=== PATIENT | male | born 1950 | race Caucasian/White ===

== ENCOUNTER 2019-05-26 11:09 | Inpatient (IN) | payer OTHER, MEDICAID ==
[~2019-05-26] VITALS: Ht 177.8 cm; Wt 73.0 kg
[2019-05-26] VITALS (7 sets, daily range): BP systolic 120–140
--- NOTE | 2019-05-26 11:33 | NUR ---
Patient to H1 to gown for evaluation. Side rails up. Report given to Qian.
--- NOTE | 2019-05-26 11:48 | NUR ---
Per Leonel, pt will be admitted under Dr. Glover and has bed at [facility]. Pt is from home.
--- NOTE | 2019-05-26 11:52 | NUR ---
Dr Cronin at bedside examining patient
[2019-05-26 12:21] LABS: MEAN CORPUSCULAR HEMOGLOBIN 19 pg (27-31); MEAN CORPUSCULAR HGB CONC 28 % (32-36); MEAN CORPUSCULAR VOLUME 69 fL (79.0-98.0); PLATELET COUNT (AUTO) 535 K/uL (130-430); RED BLOOD CELL COUNT(AUTO) 3.56 MIL/uL (4.2-6.2); RED CELL DISTRIBUTION WIDTH 17.7 % (9.0-15.0); WHITE BLOOD COUNT (AUTO) 12.1 K/uL (4.8-10.8)
[2019-05-26 12:28] LABS: CALCIUM 8.6 mg/dL (8.4-11.0); CREATININE 0.81 mg/dL (0.55-1.30); POTASSIUM 4.3 mmol/L (3.5-5.1)
[2019-05-26 12:34] LABS: ALBUMIN 2.3 g/dL (3.4-4.8); TOTAL BILIRUBIN 0.2 mg/dL (0.0-1.0)
[2019-05-26 12:35] LABS: HEMATOCRIT 24.4 % (36-54); HEMOGLOBIN 6.8 g/dL (14.0-18.0)
[2019-05-26 13:02] LABS: BAND % (MANUAL) 3 % (0-6); LYMPHOCYTES % (MANUAL) 5 % (20-46)
[2019-05-26 13:03] LABS: BASOPHILS % (MANUAL) 0 % (0-2); EOSINOPHILS % (MANUAL) 1 % (0-7); MONOCYTES % (MANUAL) 1 % (0-11)
--- NOTE | 2019-05-26 13:21 | NUR ---
Pt brought by caregiver, A&Ox1, pt presents to ER with multiple falls in the last couple days and R leg pain, pt has contractures, purposeful,pt skin pink and warm, no N/V, respirations even and unlabored.
[2019-05-26 14:09] LABS: BILIRUBIN,URINE NEGATIVE (NEGATIVE); BLOOD, URINE NEGATIVE (NEGATIVE); CLARITY/URINE CLOUDY (CLEAR); COLOR,URINE YELLOW (YELLOW); GLUCOSE,URINE NEGATIVE (NEGATIVE); KETONES,URINE NEGATIVE (NEGATIVE); LEUKOCYTE ESTERASE ,URINE 1+ (NEGATIVE); NITRITE, URINE NEGATIVE (NEGATIVE); PROTEIN URINE NEGATIVE (NEGATIVE); UROBILINOGEN,URINE 0.2 (0.2-1.0)
[2019-05-26 14:30] LABS: BACTERIA,URINE MANY /HPF (None Seen); CALCIUM OXALATE CRYSTALS,UR 0-10 /HPF (None Seen); RBC,URINE 0-3 /HPF (0-3)
[2019-05-26] MEDS ORDERED: LORA1TAB PO (14:30)
[2019-05-26] MEDS ORDERED: ESCI20TA PO (14:30)
[2019-05-26] MEDS ORDERED: BENZ1TAB76 PO (14:30)
[2019-05-26] MEDS ORDERED: FAMO40TA7 PO (14:30)
[2019-05-26] MEDS ORDERED: QUET400T5 PO (14:30)
[2019-05-26] MEDS ORDERED: FERR-69 PO (14:30)
[2019-05-26] MEDS ORDERED: HAL5 PO (14:30)
--- NOTE | 2019-05-26 14:30 | NUR ---
Patient will be admitted to care of DR. DUEÑAS. Admitted to TELE 130A unit. Will go to room 130A. Belongings list completed. Summary report printed. Report will be given at bedside. Transfer to TELE 130A via ACLS protocol. Licensed nurse present. IV present no signs or symptoms of infiltration.
--- NOTE | 2019-05-26 14:31 | NUR ---
Medication reconciliation completed with information provided by Dr Glover. Any prior medication reconciliation on file was reviewed and corrected.
--- NOTE | 2019-05-26 14:38 | NUR ---
ADMISSION NOTE Received patient from ER via samuel, received report from BRIDGETTE PÉREZ. Patient admitted with diagnosis of DVT. Patient oriented to hospital routine, call light, toileting and safety-patient verbalized understanding.
--- NOTE | 2019-05-26 15:24 | NUR ---
CONTINUATION OF CARE PATIENT IS AWAKE AND ALERT, REPORT ENDORSED BY ADMISSION NURSE. PATIENT HAS NO COMPLAINTS AT THIS TIME. PATIENT EDUCATED LEAD CARE MANAGER LIGHT FOR ASSISTANCE. PATIENT SHOWS NO SIGNS OF ANY DISTRESS, BREATHING IS EQUAL AND NON LABORED. WILL CONTINUE TO MONITOR.
--- NOTE | 2019-05-26 15:55 | NUR ---
City Library Director Note Patient referred to City Library Director by Yasmeen RN for a possible APS report due to patient having two unstageable decubitus wounds. They were reported to TOW BOAT CAPTAIN as one on left and one on right buttock measuring 8 and 6 cm. Patient's brother has been attempting to care for patient in his home, but was unaware of the wounds. Patient has a history of schizophrenia, GI bleed, and paranoia. Currently admitted with DVT. TOW BOAT CAPTAIN phoned patient's brother, Santy, . Santy stated patient was last hospitalized one year ago. Santy has been caring for patient, but patient has been getting weaker and falling over the last two months. He has an air mattress in the home but has been spending about 12 hours a day in the wheelchair. Santy stated he has been changing patient's diaper, but had not noticed the sores due to the position the patient is in when the diaper is changed. Cindy with [facility] [phone] has been coming to the home and stated she was arranging for patient to go to [facility] for rehab. However, when they arrived at the SNF, the SNF was unaware that the patient was coming. Thus, they came to [facility]. Santy just signed up for [employer] yesterday so he could get more help at home. He plans for patient to go to a SNF upon discharge, but hopes patient can improve and return home after a stay in the SNF. TOW BOAT CAPTAIN explained that a report would be filed due to the wounds but the story as indicated above would be conveyed. TOW BOAT CAPTAIN phoned in an APS report, , with [facility], case # [id number]. A written report will be sent tomorrow morning to [address] [place] [address] [address], [place] [address]. Will conduct a Discharge Plan Assessment. Expect patient will discharge to SNF. Notified Vania HACKETT and Mariam EATON Card Tape Converter Operator. Team will remain available.
[2019-05-26] MEDS ORDERED: FLU VACC TS2019(65UP)/MF59C/PF 45 MCG/0.5 ML SYRINGE I.M. PRN (16:00)
--- NOTE | 2019-05-26 16:35 | NUR ---
BT INITIATION: Consent signed per patients asif Macias agreeing to administration of blood. Blood has been type and crossmatched. Blood sent from blood bank. Information on unit of blood checked against patient wristband at bedside by two nurses. All information matches. Patient or responsible republican informed of potential complications associated with blood transfusion. Informed of possible transfusion reaction symptoms. Aware of need to notify nurse at once of itching, shortness of breath, flushing, feeling of impending doom, or other symptoms not previously present. Vital signs taken within 5 minutes prior to initiation of transfusion. RN will remain with patient for first 15 minutes of transfusion at which time vital signs will be re-assessed. Addendum: 05/26/19 at 1925 by Lida Hawley RN NEW IV SITE OBTAINED LEFT AC 20G, FLUSHING WELL, GOOD BLOOD RETURN.
--- NOTE | 2019-05-26 16:50 | NUR ---
15 MINUTES POST START OF TRANSFUSION PATIENT HAS NO SOB, DENIES PAIN, OR ITCHING. VITAL SIGNS ARE STABLE BP 116/61 HEART RATE 110, TEMPERATURE 98.2, RESPIRATION OF 16. PATIENT EDUCATED HSE ADVISOR LIGHT FOR ASSISTANCE, CALL LIGHT IS WITH PATIENT.PATIENT HAS NO COMPLAINTS AT THIS TIME. WILL CONTINUE TO MONITOR.
--- NOTE | 2019-05-26 17:30 | NUR ---
CONSULTATION PAGED/CALLED Reason for Consultation: CORNELIO Person Who was Notified: DANIEL Consulting Physician: Fare Collector Specialty: Ordering Physician: Addendum: 05/26/19 at 1816 by Jazmyn [place] [facility] [place]ED Reason for Consultation: DICK Person Who was Notified: NEDA Consulting Physician: Fare Collector Specialty: Ordering Physician:
--- NOTE | 2019-05-26 18:49 | NUR ---
rn closing note Patient is awake and alert sitting up in bed no signs of any distress, breathing is equal and non labored. Patient shows no adverse reactions to blood. Patient educated information technology security manager light , call light is with patient. Patient has all safety precautions in place. no other needs at this time.
--- NOTE | 2019-05-26 19:39 | NUR ---
Initial note: Report received from dayshift RN. Patient is awake in bed, watching TV. No acute distress. Alert and oriented to name and place only. 1st of 2 units of PRBC's currently being transfused to left AC IV site. Patient shows no adverse effects, IV site is patent and benign. Call light with patient. Safety, fall precautions in place. Will continue with plan of care.
--- NOTE | 2019-05-26 19:42 | NUR ---
1st unit PRBC complete: 1st of 2 PRBC units completed at this time. Temp 98.8 F, HR 110, RR 18, BP 120/64, SaO2 95%. No adverse reactions noted. Will initiate 2nd unit PRBC per MD order.
--- NOTE | 2019-05-26 20:08 | NUR ---
BT INITIATION (2nd unit PRBC's): Consent signed per patient's brother Santy Macias agreeing to administration of blood. Blood has been type and crossmatched. Blood sent from blood bank. Information on unit of blood checked against patient wristband at bedside by two nurses. All information matches. Patient or responsible libertarian informed of potential complications associated with blood transfusion. Informed of possible transfusion reaction symptoms. Aware of need to notify nurse at once of itching, shortness of breath, flushing, feeling of impending doom, or other symptoms not previously present. Vital signs taken within 5 minutes prior to initiation of transfusion. RN will remain with patient for first 15 minutes of transfusion at which time vital signs will be re-assessed.
--- NOTE | 2019-05-26 22:03 | NUR ---
Dr. Glover rounds: MD at bedside to assess patient. MD ordered to continue patient's home medications. Does not want to start patient on Lovenox due to low hemoglobin, wants GI to see patient first. Orders verified by read-back, RN to input.
--- NOTE | 2019-05-26 23:29 | NUR ---
2nd unit PRBC complete: 2nd unit of PRBC's completed transfusing at this time. Temp 98.7 F, HR 111, RR 18, BP 134/74. No adverse reactions noted. IV site to left AC saline locked. Call light with patient. Will continue monitoring.
[2019-05-27 00:58] VITALS: BP_SYST 133
--- NOTE | 2019-05-27 01:56 | NUR ---
Rounds: Patient is resting in bed, no acute distress noted. Even, unlabored breathing on room air. IV site is patent and benign. Call light is with patient. Will continue to monitor.
[2019-05-27 08:00] VITALS: BP_SYST 142
--- NOTE | 2019-05-27 08:10 | NUR ---
AM NOTES Receive patient from [facility] shift nurse. Patient alert to name. Patient has swelling in the right lower leg. Incontinent on bowel and bladder. Dressing noted in the left and right buttocks. Denies any pain and discomfort. No SOB, no signs of respiratory distress. Safety precaution in place. Call light with in reach.
--- NOTE | 2019-05-27 08:45 | NUR ---
MD ROUNDS Dr. Ramirez come and see the patient. MD stated he needs to find out if the patient had scope in the past. Patient not able to recall, if not MD will do scope by Thursday. Will call family to find out. Will continue to monitor
[2019-05-27 08:50] LABS: BASOPHILS # (AUTO) 0.1 K/uL (0.0-0.2); EOSINOPHILS # (AUTO) 0.1 K/uL (0.0-0.4); EOSINOPHILS % (AUTO) 0.7 % (0.0-4.0); HEMATOCRIT 27.3 % (36-54); HEMOGLOBIN 8.5 g/dL (14.0-18.0); LYMPHOCYTES # (AUTO) 1.8 K/uL (1.0-5.5); MEAN CORPUSCULAR HEMOGLOBIN 22 pg (27-31); MEAN CORPUSCULAR HGB CONC 31 % (32-36); MEAN CORPUSCULAR VOLUME 71 fL (79.0-98.0); MONOCYTES # (AUTO) 0.7 K/uL (0.0-1.0); MONOCYTES % (AUTO) 6.7 % (1.7-9.3); PLATELET COUNT (AUTO) 522 K/uL (130-430); RED BLOOD CELL COUNT(AUTO) 3.84 MIL/uL (4.2-6.2); WHITE BLOOD COUNT (AUTO) 10.7 K/uL (4.8-10.8)
[2019-05-27 09:00] LABS: NEUTROPHILS % (AUTO) 74.6 % (40.0-70.0)
[2019-05-27 09:04] LABS: CALCIUM 8.2 mg/dL (8.4-11.0); CREATININE 0.9 mg/dL (0.55-1.30); POTASSIUM 3.9 mmol/L (3.5-5.1)
[2019-05-27 09:11] LABS: INR 1.1 (0.80-1.20); PROTHROMBIN TIME 10.8 SECS (9.5-12.5)
[2019-05-27 09:18] LABS: THYROID STIMULATING HORMONE 7.93 uIu/mL (0.36-3.74)
[2019-05-27] MEDS: BENZTROPINE MESYLATE 1 MG TABLET PO SCH ×2 (09:54→21:53)
[2019-05-27] MEDS: FERROUS SULFATE 325 MG TABLET.DR PO SCH (09:54)
[2019-05-27] MEDS: FAMOTIDINE 20 MG TABLET PO SCH (09:54)
[2019-05-27] MEDS: HALOPERIDOL 5 MG TABLET (HALDOL) PO SCH ×2 (09:54→21:52)
[2019-05-27] MEDS: CITALOPRAM HYDROBROMIDE 20 MG TABLET PO SCH (09:54)
--- NOTE | 2019-05-27 10:33 | NUR ---
Nutrition Update Andres Scale 13 noted. Pt admitted for DVT. Diet: regular BMI: 23 kg/m2 RD to follow per nutrition care standards.
--- NOTE | 2019-05-27 11:35 | NUR ---
Manager Product Design at bed side talking with the family.
--- NOTE | 2019-05-27 11:39 | NUR ---
WOUND EVALUATION: Wound Consult received from Dr. Glover. Thank you, Dr. Glover, for the consult. Patient received in a John Bed with an IsoFlex SAM mattress with low air-loss therapy initiated, awake, alert, and oriented x 2-3. Patient is unable to turn in bed independently. Andres Score is a 13. Past Medical History: Schizophrenia. Patient admitted for a fall at home, with gradual onset of increased gait imbalance and tendency to fall over the past few weeks. Recent Labs: WBC 10.7, RBC 3.84, hemoglobin 8.5, hematocrit 27.3, platelets 522, albumin 2.3, PTT 25.6. Microbiology: Blood culture results 2 in progress. Urine culture results in progress. Patient received 2 units of RBCs on 05/26/19 (Hgb 6.8 on admission). Venous Doppler results: "Right lower extremity deep venous thrombosis extending from the right superficial femoral to the right popliteal veins." Intrinsic factors that delay wound healing: Anemia, Hypoalbuminemia. Extrinsic factors that delay wound healing: Decreased mobility. Per report by patient's brother, 'patient tends to sit in a chair for long periods, and he had to throw away a good recliner because it was soiled.' Wound Assessment: 1. Left Buttock near Ischium: Unstageable pressure ulcer, present on admission. Site has 60% yellow slough, 35% black slough, 5% pink tissue. Mild odor, scant yellow purulent drainage. Periwound has erythema and scar tissue. Slough area is soft to touch, with wound cavity beneath (deep open area present around 8 o'clock). Wound measures 8.5 cm x 6.5 cm x 4.0 cm. Recommend: Cleanse wound with normal saline. Apply SurePrep to joyce-wound. Apply Venelex ointment to wound bed. Pack wound with 1/4 inch iodoform packing strip. Cover with nonadhesive foam dressings. Secure with transparent dressings. Perform wound care daily, and as needed for dressing soiling or dislodgement. 2. Right Buttock near Ischium: Unstageable pressure ulcer, present on admission. Site has 60% black slough, 40% yellow slough. No odor, no drainage. Periwound has erythema. Slough area is soft to touch, with probable wound cavity beneath. Wound measures 4.5 cm x 6.5 cm. Recommend: Cleanse wound with normal saline. Apply SurePrep to joyce-wound. Apply Venelex ointment to wound bed. Cover with nonadhesive foam dressings. Secure with transparent dressings. Perform wound care daily, and as needed for dressing soiling or dislodgement. Also recommend: Encourage and assist patient with repositioning [id number] only every [address] one pillow underneath Pelvis and one pillow underneath lower extremity (hand should freely slide underneath buttock) bilaterally. Place an additional pillow underneath noble when turning patient. Off-load pressure areas with pillows for pressure re-distribution. Offload, elevate and float bilateral heels with one pillow lengthwise under each extremity at all times. Perform skin care and monitor skin integrity Q shift. Use moisture barrier cream on buttocks and other moisture susceptible areas QID and as needed for soiling. Maintain patient on a low air-loss mattress. Recommend surgical consult for pressure ulcers on bilateral buttocks.
[2019-05-27] MEDS ORDERED: BALSAM PERU/CASTOR OIL 60 GM OINT...G. TP ONE (12:00)
--- NOTE | 2019-05-27 12:20 | NUR ---
RN ROUNDS Patient is sitting in bed and eating lunch. No signs of respiratory distress. No SOB. Patients needs met and attended. Will continue to monitor.
[2019-05-27 13:14] VITALS: BP_SYST 145
--- NOTE | 2019-05-27 14:00 | NUR ---
RN ROUNDS Patient is sitting in bed, alert oriented to name only. Swelling in the right leg noted. No pain and discomfort at this time. No signs of respiratory distress. Will continue to monitor.
--- NOTE | 2019-05-27 15:14 | NUR ---
Notes- Spoke to Dr. Glover and made aware that GI cleared patient to receive anticoagulant for his DVT. MD ordered Xarelto per pharmacy to dose.
[2019-05-27] MEDS ORDERED: COMMUNICATION ORDER XX ONE (15:15)
--- NOTE | 2019-05-27 16:05 | NUR ---
Employment Coach Note/Discharge Planning MANAGER OF INTERNATIONAL met with patient's brother, Santy, this am at bedside. Santy understands that patient should not return home until Santy is fully able to care for him. Santy makes the decisions for patient. Patient was at [facility], , [address] [place] [id number], sometime in the past. [facility] was being arranged for patient by his home health. Santy has no preference of SNF other than near [place], where Santy resides.
[2019-05-27] MEDS: BALSAM PERU/CASTOR OIL 60 GM OINT...G. TP SCH (16:20)
[2019-05-27] MEDS ORDERED: RIVAROXABAN 15 MG TABLET PO ONE (16:30)
[2019-05-27 16:48] VITALS: BP_SYST 148
--- NOTE | 2019-05-27 17:09 | NUR ---
Dietitian Recommendations * Recommend regular diet, Ensure Enlive BID, Christian BID (ONS and modular provide 880 kcal/day, 45 gm protein/day) SALINAS WILLS Please refer to Nutrition Assessment for details. Addendum: 05/27/19 at [address] Amended: Links added.
--- NOTE | 2019-05-27 18:36 | NUR ---
CLOSING NOTES Patient is sitting in bed, alert but confused at times. Dr. Glover came and see the patient. Swelling in the right leg noted. Wound dressing is in the Right and Left buttocks are intact. No signs of respiratory distress. NO SOB. Safety precaution in place. Bed in low position and call light within reach. Patient needs met and attended. Will endorsed to deli manager nurse for continuity of care.
[2019-05-27] MEDS ORDERED: LEVOFLOXACIN 500 MG/D5W 100 ML IV SCH (19:30)
--- NOTE | 2019-05-27 19:35 | NUR ---
ROUNDS PATIENT IN BED, EATING HIS DINNER, VITALS STABLE, DENIES ANY PAIN AND DISCOMFORT AT THIS TIME. ASSESSMENT DONE AND DOCUMENTED. SEE FLOWSHEET. NEEDS ATTENDED TO. SAFETY AND FALL PRECAUTION MEASURES IN PLACED. CALL LIGHT PLACED WITHIN REACH.
[2019-05-27] MEDS ORDERED: ESCITALOPRAM OXALATE 10 MG TABLET PO SCH (21:00)
--- NOTE | 2019-05-27 21:15 | NUR ---
MEDICATION DUE MEDICATIONS GIVEN ORDERED, TOLERATED WELL. WILL CONTINUE TO MONITOR.
[2019-05-27] MEDS: LORazepam 1 MG TABLET PO SCH (21:53)
[2019-05-27] MEDS ORDERED: LEVOFLOXACIN 500 MG/D5W 100 ML IV ONE (21:53)
[2019-05-27] MEDS: QUEtiapine FUMARATE 200 MG TAB.SR.24H PO SCH (21:54)
--- NOTE | 2019-05-28 00:16 | NUR ---
PATIENT RESTING: Patient resting quietly. No acute distress noted. Vital signs within normal range.
[2019-05-28 00:45] VITALS: BP_SYST 128
--- NOTE | 2019-05-28 02:13 | NUR ---
ROUNDS PATIENT SLEEPING, RESPIRATIONS EVEN AND UNLABORED, WILL CONTINUE TO MONITOR.
--- NOTE | 2019-05-28 04:12 | NUR ---
PATIENT RESTING: Patient resting quietly. No acute distress noted. Vital signs within normal range.
--- NOTE | 2019-05-28 05:10 | NUR ---
CONSULT Paged Dr. Mccallum for morning consult [phone] Spoke to Vivi
--- NOTE | 2019-05-28 05:17 | NUR ---
CONSULT Paged Dr. Pantoja for morning consult [phone] Spoke to Vivi
--- NOTE | 2019-05-28 05:22 | NUR ---
CONSULT Called Dr. Tabares's paging service [phone] Spoke to Kym
--- NOTE | 2019-05-28 06:40 | NUR ---
CLOSING NOTES PATIENT AWAKE, VITALS STABLE, ALL NEEDS ATTENDED TO. IV PULLED OUT, REINSERTED ON THE RIGHT FOREARM G. 22. HAD BM, SENT STOOL SPECIMEN TO THE LAB. MADE CLEAN AND COMFORTABLE. WILL CONTINUE TO MONITOR.
[2019-05-28 07:40] VITALS: BP_SYST 132
--- NOTE | 2019-05-28 07:41 | NUR ---
am rounds: Awake, oriented x3. Denies pain at this time. Righ leg/ foot is warm, swollen with 3+ pitting edema on the dorsal foot. Elevated right leg with a pillow. Air mattress for existing wounds. Safety precautions in place. Call light within reach.
[2019-05-28] MEDS ORDERED: RIVAROXABAN 15 MG TABLET PO SCH (08:30)
[2019-05-28] MEDS: FAMOTIDINE 20 MG TABLET PO SCH (08:33)
[2019-05-28] MEDS: BENZTROPINE MESYLATE 1 MG TABLET PO SCH ×2 (08:34→20:30)
[2019-05-28] MEDS: HALOPERIDOL 5 MG TABLET (HALDOL) PO SCH ×2 (08:34→20:30)
[2019-05-28] MEDS: CITALOPRAM HYDROBROMIDE 20 MG TABLET PO SCH (08:34)
[2019-05-28] MEDS: FERROUS SULFATE 325 MG TABLET.DR PO SCH (08:34)
[2019-05-28] MEDS: BALSAM PERU/CASTOR OIL 60 GM OINT...G. TP SCH (10:49)
--- NOTE | 2019-05-28 11:00 | NUR ---
Incontinence and wound care: Cleansed patient for incontinent of urine. Wound care done. Please see assessment flowsheet.
[2019-05-28] MEDS ORDERED: *HEPARIN PER PHARMACY XX ONE (12:30)
[2019-05-28 12:45] VITALS: BP_SYST 126
[2019-05-28] MEDS ORDERED: HEPARIN SODIUM,PORCINE 5000 UNITS/ML VIAL IVP ONE (12:45)
[2019-05-28] MEDS: HEPARIN 25,000 UNITS/D5W 250ML 250 ML IV PRN ×2 (13:50→22:37)
--- NOTE | 2019-05-28 13:57 | NUR ---
Heparin Drip: PTT 33.3. Initiated heparin drip at 1300 units/hr. PTT level ordered for 1999.
--- NOTE | 2019-05-28 15:00 | NUR ---
Rounds: Patient is resting. heparin drip at 1,300 units on the left hand gauge 20 intact and patent.
[2019-05-28 16:54] VITALS: BP_SYST 127
--- NOTE | 2019-05-28 17:00 | NUR ---
Surgical Consult: Seen by Dr. Alvarado. No new orders.
--- NOTE | 2019-05-28 18:27 | NUR ---
End of shift: Needs attended. No signs of bleeding noted. Continues on heparin drip at 1300 units per hour.
--- NOTE | 2019-05-28 19:30 | NUR ---
ROUNDS PATIENT IN BED, WATCHING TV, VITALS STABLE, NO PAIN AT THIS TIME. SHIFT ASSESSMENT DONE AND DOCUMENTED. SEE FLOWSHEET. ON HEPARIN DRIP AT 13 ML/HR, INFUSING WELL. NEEDS ATTENDED TO. SAFETY AND FALL MEASURES IN PLACED. CALL LIGHT PLACED WITHIN REACH.
[2019-05-28] MEDS: LORazepam 1 MG TABLET PO SCH (20:30)
[2019-05-28] MEDS: QUEtiapine FUMARATE 200 MG TAB.SR.24H PO SCH (20:31)
[2019-05-28] MEDS: LEVOFLOXACIN 500 MG/D5W 100 ML IV SCH (22:08)
--- NOTE | 2019-05-28 22:37 | NUR ---
HEPARIN DRIP PTT 48.8, HEPARIN DRIP INCREASED BY 100 UNITS PER PROTOCOL AND IS NOW 1400 UNITS, WITNESSED AND CO-SIGNED Tahira LAWRENCE RN. NEXT PTT AT 0437. WILL CONTINUE TO MONITOR.
--- NOTE | 2019-05-29 00:15 | NUR ---
PATIENT RESTING: Patient resting quietly. No acute distress noted. Vital signs within normal range.
[2019-05-29 01:53] VITALS: BP_SYST 143
--- NOTE | 2019-05-29 02:14 | NUR ---
ROUNDS PATIENT ASLEEP, RESPIRATIONS EVEN AND UNLABORED, WILL CONTINUE TO MONITOR.
--- NOTE | 2019-05-29 04:15 | NUR ---
ROUNDS PATIENT ASLEEP, NO SOB NOR PAIN AND DISCOMFORT NOTED, WILL CONTINUE TO MONITOR.
--- NOTE | 2019-05-29 06:30 | NUR ---
CLOSING NOTES PATIENT REMAINED STABLE, ALL NEEDS ATTENDED TO, SAFETY MEASURES MAINTAINED. BED IN LOW AND LOCKED POSITION. CALL LIGHT PLACED WITHIN REACH.
[2019-05-29 06:39] LABS: BASOPHILS # (AUTO) 0.1 K/uL (0.0-0.2); BASOPHILS % (AUTO) 0.8 % (0.0-2.0); EOSINOPHILS # (AUTO) 0.1 K/uL (0.0-0.4); EOSINOPHILS % (AUTO) 1.3 % (0.0-4.0); HEMATOCRIT 25.3 % (36-54); HEMOGLOBIN 7.7 g/dL (14.0-18.0); LYMPHOCYTES # (AUTO) 1.4 K/uL (1.0-5.5); LYMPHOCYTES % (AUTO) 14.4 % (20.5-51.5); MEAN CORPUSCULAR HEMOGLOBIN 22 pg (27-31); MEAN CORPUSCULAR HGB CONC 31 % (32-36); MONOCYTES # (AUTO) 0.8 K/uL (0.0-1.0); MONOCYTES % (AUTO) 7.9 % (1.7-9.3); NEUTROPHILS # (AUTO) 7.2 K/uL (1.8-7.7); NEUTROPHILS % (AUTO) 75.6 % (40.0-70.0); PLATELET COUNT (AUTO) 443 K/uL (130-430); RED BLOOD CELL COUNT(AUTO) 3.48 MIL/uL (4.2-6.2); RED CELL DISTRIBUTION WIDTH 23.4 % (9.0-15.0); WHITE BLOOD COUNT (AUTO) 9.5 K/uL (4.8-10.8)
[2019-05-29 07:10] LABS: TOTAL IRON BIND. CAPACITY 193 ug/dL (250-450)
[2019-05-29] MEDS ORDERED: HEPARIN SODIUM,PORCINE 2000 UNITS/0.4 ML BOLUS IVP PRN (07:15)
[2019-05-29 07:17] LABS: CALCIUM 8.4 mg/dL (8.4-11.0); CREATININE 0.83 mg/dL (0.55-1.30); POTASSIUM 3.9 mmol/L (3.5-5.1)
[2019-05-29] MEDS: HEPARIN SODIUM,PORCINE 3000 UNITS/0.6 ML BOLUS IVP PRN (07:20)
[2019-05-29] MEDS: HEPARIN 25,000 UNITS/D5W 250ML 250 ML IV PRN ×2 (07:22→18:16)
[2019-05-29 07:25] VITALS: BP_SYST 107
--- NOTE | 2019-05-29 07:28 | NUR ---
AM rounds/ he[joaquin dose adjustment Received patient patient asleep. PTT is 25. Blous of 3,000 units IVP given, drip rate adjusted to 1600 units per hour per protocol.
[2019-05-29 08:17] LABS: MEAN CORPUSCULAR VOLUME 73 fL (79.0-98.0)
[2019-05-29] MEDS: FERROUS SULFATE 325 MG TABLET.DR PO SCH (09:15)
[2019-05-29] MEDS: CITALOPRAM HYDROBROMIDE 20 MG TABLET PO SCH (09:15)
[2019-05-29] MEDS: BENZTROPINE MESYLATE 1 MG TABLET PO SCH ×2 (09:15→21:56)
[2019-05-29] MEDS: HALOPERIDOL 5 MG TABLET (HALDOL) PO SCH ×2 (09:15→21:56)
[2019-05-29] MEDS: FAMOTIDINE 20 MG TABLET PO SCH (09:15)
--- NOTE | 2019-05-29 09:42 | NUR ---
CONSULT ROUNDS: Seen by Dr. Galeana. Patient's bothfroy Bill signed consent for EGD and Colonoscopy
[2019-05-29] MEDS: BALSAM PERU/CASTOR OIL 60 GM OINT...G. TP SCH (10:58)
[2019-05-29 12:34] VITALS: BP_SYST 122
--- NOTE | 2019-05-29 13:27 | NUR ---
Rounds: Patient is asleep. No signs of distress at this time.
--- NOTE | 2019-05-29 14:10 | NUR ---
PTT: PTT IS 73.5, no dosage adjustment needed. Will order PTT in am.
[2019-05-29 16:18] VITALS: BP_SYST 125
[2019-05-29] MEDS ORDERED: BISACODYL 5 MG TABLET.DR (DULCOLAX) PO ONE (17:00)
[2019-05-29] MEDS ORDERED: GOLYTELY / COLYTE SOLUTION 4 LITERS PO ONE (18:00)
--- NOTE | 2019-05-29 18:33 | NUR ---
End of shift: Needs attended. Colonoscopy prep with Golytely initiated. No change in assessment.
--- NOTE | 2019-05-29 19:35 | NUR ---
ROUNDS PATIENT RESTING COMFORTABLY IN BED, NOT IN DISTRESS, VITALS STABLE. ON GOLYTELY FOR HIS SCHEDULED EGD/COLONOSCOPY TOMORROW. SHIFT ASSESSMENT DONE AND DOCUMENTED. SEE FLOWSHEET. NEEDS ATTENDED TO. SAFETY AND FALL MEASURES IN PLACED. CALL LIGHT PLACED WITHIN REACH.
--- NOTE | 2019-05-29 21:03 | NUR ---
MEDICATION DUE MEDICATIONS GIVEN SCHEDULED, TOLERATED WELL. WILL CONTINUE TO MONITOR.
[2019-05-29] MEDS: LEVOFLOXACIN 500 MG/D5W 100 ML IV SCH (21:55)
[2019-05-29] MEDS: QUEtiapine FUMARATE 200 MG TAB.SR.24H PO SCH (21:56)
[2019-05-29] MEDS: LORazepam 1 MG TABLET PO SCH (21:56)
--- NOTE | 2019-05-30 | NUR ---
ROUNDS PATIENT AWAKE, VITALS STABLE, STILL ON GOLYTELY. HEPARIN DRIP ON HOLD ORDERED FOR PATIENT'S SCHEDULED EGD/COLONOSCOPY. WILL CONTINUE TO MONITOR.
[2019-05-30 00:43] VITALS: BP_SYST 131
--- NOTE | 2019-05-30 02:10 | NUR ---
ROUNDS PATIENT ASLEEP AT THIS TIME, RESPIRATIONS EVEN AND UNLABORED, WILL CONTINUE TO MONITOR.
--- NOTE | 2019-05-30 04:10 | NUR ---
TAP WATER ENEMA TAP WATER ENEMA DONE ORDERED, BIG FORMED STOOL OUT AT FIRST FOLLOWED BY BIG CHUNKS OF STOOL. FINALLY RETURN FLOW HAS SMALL PARTICLES OF STOOL BUT STILL WATER IS NOT CLEAR, IT IS STILL GREENISH IN COLOR. WILL REPEAT LATER.
--- NOTE | 2019-05-30 05:40 | NUR ---
NOTES TAP WATER ENEMA DONE, THIS TIME ALL GREENISH RETURN FLOW NOTED. WILL CONTINUE TO MONITOR.
[2019-05-30 06:22] LABS: BASOPHILS % (AUTO) 0.2 % (0.0-2.0); EOSINOPHILS # (AUTO) 0.1 K/uL (0.0-0.4); EOSINOPHILS % (AUTO) 0.8 % (0.0-4.0); HEMATOCRIT 24.5 % (36-54); HEMOGLOBIN 7.5 g/dL (14.0-18.0); LYMPHOCYTES % (AUTO) 9.9 % (20.5-51.5); MEAN CORPUSCULAR HEMOGLOBIN 22 pg (27-31); MEAN CORPUSCULAR HGB CONC 31 % (32-36); MEAN CORPUSCULAR VOLUME 72 fL (79.0-98.0); MONOCYTES # (AUTO) 0.8 K/uL (0.0-1.0); MONOCYTES % (AUTO) 7.9 % (1.7-9.3); NEUTROPHILS # (AUTO) 8.4 K/uL (1.8-7.7); NEUTROPHILS % (AUTO) 81.2 % (40.0-70.0); PLATELET COUNT (AUTO) 429 K/uL (130-430); RED BLOOD CELL COUNT(AUTO) 3.42 MIL/uL (4.2-6.2); RED CELL DISTRIBUTION WIDTH 24.3 % (9.0-15.0); WHITE BLOOD COUNT (AUTO) 10.3 K/uL (4.8-10.8)
[2019-05-30 06:29] LABS: CREATININE 0.66 mg/dL (0.55-1.30); POTASSIUM 3.5 mmol/L (3.5-5.1)
--- NOTE | 2019-05-30 06:30 | NUR ---
DR. MEEK PAGED DR. MEEK TO INFORM HIM OF THE RESULT OF THE TAP WATER ENEMA. WAITING FOR RETURN CALL.
--- NOTE | 2019-05-30 06:36 | NUR ---
PAGED [facility] CALLED AT [phone] SPOKE WITH MARTINA.
--- NOTE | 2019-05-30 06:55 | NUR ---
DR. GAVIOTA MEEK CALLED BACK AND MADE AWARE OF THE TAP WATER ENEMA, NO NEW ORDER AT THIS TIME STATED HE WILL INFORM DR. BLAKELY. WILL ENDORSE TO INCOMING SHIFT NURSE.
[2019-05-30] MEDS: MIDAZOLAM HCL 5 MG/5 ML VIAL ONE ×3 (07:07→08:22)
[2019-05-30] MEDS ORDERED: MIDAZOLAM HCL 5 MG/5 ML VIAL ONE (07:08)
[2019-05-30] MEDS: fentaNYL CITRATE/PF 100 MCG/2 ML AMP ONE ×3 (07:08→08:22)
[2019-05-30 07:24] LABS: INR 1.2 (0.80-1.20); PROTHROMBIN TIME 11.9 SECS (9.5-12.5)
--- NOTE | 2019-05-30 07:41 | NUR ---
OPENING NOTE PATIENT AWAKE ALERT. STABLE. VERBALLY RESPONSIVE; SLOW TO RESPOND. NO S/SX PAIN NOTED. ROOM AIR. NO ACUTE DISTRESS. NO SOB. RESPIRATION EVEN AND UNLABORED. SKIN WARM AND DRY TO TOUCH. IV INTACT AND PATENT. PATIENT TAKEN OFF UNIT TO GI LAB FOR EGD AND COLONOSCOPY PROCEDURE.
[2019-05-30 08:00] VITALS: BP_SYST 129
[2019-05-30] MEDS ORDERED: GOLYTELY / COLYTE SOLUTION 4 LITERS PO ONE ×2 (09:00→18:00)
--- NOTE | 2019-05-30 09:06 | NUR ---
Computer Forensic Specialist Note Crystal Trevon , , with APS left a voicemail asking if patient had been discharged yet. Returned call and left a voicemail that patient remains in the hospital.
--- NOTE | 2019-05-30 09:36 | NUR ---
ON UNIT FROM EGD PATIENT RETURNED FROM GI LAB. REPORT RECEIVED FROM CHAYO PÉREZ; PATIENT WITH DIAGNOSIS OF ESOPHAGITIS, HIATAL HERNIA AND DIVERTICULOSIS. PATIENT STABLE. DENIES ANY PAIN. NO ACUTE DISTRESS. NO SOB. RESPIRATION EVEN AND UNLABORED. SKIN WARM AND DRY TO TOUCH. IV INTACT AND PATENT. ALL NEEDS MET. CALL LIGHT IN REACH. CONT TO MONITOR
[2019-05-30] MEDS: BENZTROPINE MESYLATE 1 MG TABLET PO SCH ×2 (10:01→21:06)
[2019-05-30] MEDS: CITALOPRAM HYDROBROMIDE 20 MG TABLET PO SCH (10:01)
[2019-05-30] MEDS: FERROUS SULFATE 325 MG TABLET.DR PO SCH (10:01)
[2019-05-30] MEDS: FAMOTIDINE 20 MG TABLET PO SCH (10:01)
[2019-05-30] MEDS: HALOPERIDOL 5 MG TABLET (HALDOL) PO SCH ×2 (10:01→21:06)
[2019-05-30] MEDS: BALSAM PERU/CASTOR OIL 60 GM OINT...G. TP SCH (10:02)
--- NOTE | 2019-05-30 10:10 | NUR ---
SEEN AND EXAMINED BY AT BEDSIDE
--- NOTE | 2019-05-30 10:50 | NUR ---
PTT PTT is 29.2. Bolus of 3,000 units IVP given, drip rate adjusted to 1800 units per hour per protocol.
[2019-05-30] MEDS: HEPARIN SODIUM,PORCINE 3000 UNITS/0.6 ML BOLUS IVP PRN (10:51)
--- NOTE | 2019-05-30 11:00 | NUR ---
WOUND CARE ASSISTED AIR CARRIER MAINTENANCE INSPECTOR WITH INCONTINENCE CARE. PROVIDED WOUND CARE ORDERED, PT MESHA WELL. CONT TO MONITOR. CALL LIGHT IN REACH. PATIENT CONT TO DRINK GOLYTELY ORDERED, MESHA WELL.
[2019-05-30] MEDS: SOD FERRIC GLUC COMPLEX/SUC 125 MG in NS 100 ML IV SCH (12:10)
--- NOTE | 2019-05-30 12:30 | NUR ---
CONSENT PATIENTS BROTHERBELÉN, AT BEDSIDE. RECEIVED CONSENT FOR COLONOSCOPY TOMORROW AND FOR WOUND DEBRIDEMENT
--- NOTE | 2019-05-30 12:45 | NUR ---
SPOKE TO AND REPORTED WANTS HEPARIN DRIP TO BE HELD ONLY 4 HRS BEFORE PROCEDURE AND PATIENT IS DRINKING GOLYTELY PER PROCEDURE TOMORROW WILL BE AT 0700 AND OKAY TO HOLD HEPARIN 4 HRS BEFORE PROCEDURE. PER NGTUBE DOES NOT NEED TO BE INSERTED IF PATIENT IS ABLE TO DRINK 4L DURING DAY SHIFT AND ABOUT 3-4 L OF GOLYTELY DURING PHOTOGRAPHY SPOTTER
[2019-05-30 12:50] VITALS: BP_SYST 118
--- NOTE | 2019-05-30 13:51 | NUR ---
Nutrition F/U RD reviewed pt's current EMR including diet Hx, physician notes, nursing notes, pertinent labs/meds/procedures, care trends and care activity. Current Diet Order: Clear liquid diet x 0 day Subjective information: Pt was at GI lab for EGD earlier this morning during RD visit. Per RN, pt on NPO this morning for procedure but clear liquid diet will be ordered for lunch. Per bed huddle discussion, pt is for colonoscopy and debridement tomorrow. PO intake remains poor (38%). Current PO intake: Poor Estimated Energy Expenditure (kcals/day) 2066-8049 kcal/day (30-35 kcal/kg CBW for wound healing) Estimated Protein Required (g/day) 88-110 gm/day (1.2-1.5 gm/kg CBW for wound healing) Estimated Fluid Required (l/day) 2.2-2.6 L/day (1 ml/kcal/day for maintenance) Problem/Etiology/Signs/Symptoms Increased nutritional needs related to metabolic demands as evidenced by estimated nutritional requirements for wound healing. (*ongoing) Inadequate nutrient intake r/t medical procedure AEB pt's NPO status and PO intake meeting <75% of estimated calorie and protein needs. (*new) Expected Outcomes/Goals - Monitor advancement of diet, appetite and PO intakes w/ goal of pt meeting greater than 85% of estimated nutritional needs, labs trending WNL, normal GI function, and skin integrity/wt maintenance Dietitian Recommendations * Recommend continuing Clear liquid diet per MD orders. ONS Ensure Clear TID comes standard with diet and provides 720 kcal and 24 gm protein daily. * If/when medically appropriate, advance diet to Regular diet w/ Ensure Enlive BID and Christian BID. Follow Up High Risk: F/U in 2-3days
--- NOTE | 2019-05-30 13:56 | NUR ---
Dietitian Recommendations * Recommend continuing Clear liquid diet per MD orders. ONS Ensure Clear TID comes standard with diet and provides 720 kcal and 24 gm protein daily. * If/when medically appropriate, advance diet to Regular diet w/ Ensure Enlive BID and Christian BID. Please see Nutrition F/U note for details. SALINAS YOUNG
--- NOTE | 2019-05-30 14:30 | NUR ---
NOTE INCONTINENCE CARE PROVIDED, MESHA WELL. WOUND CARE PROVIDED DUE TO SOILAGE. PATIENT MESHA WELL. ALL NEEDS MET. CONT TO MONITOR.
--- NOTE | 2019-05-30 15:34 | NUR ---
seen and examined by Wound debridement for bilat ischial tuberosity scheduled for 0830 tomorrow after colonoscopy which is at 0700
[2019-05-30 16:50] VITALS: BP_SYST 130
[2019-05-30] MEDS ORDERED: BISACODYL 5 MG TABLET.DR (DULCOLAX) PO ONE (17:00)
--- NOTE | 2019-05-30 17:00 | NUR ---
lab PATIENT REFUSED LAB DRAW. EXPLAINED TO PATIENT RISKS AND WHAT ITS FOR AND PATIENT CONT TO REFUSE. WILL ATTEMPT AGAIN.
--- NOTE | 2019-05-30 17:50 | NUR ---
LAB PATIENT AGREED TO LET DISPUTE RESOLUTION ANALYST DRAW BLOOD FOR PTT; AWAITING FOR RESULTS
--- NOTE | 2019-05-30 18:38 | NUR ---
CLOSING NOTE PATIENT IS AWAKE IN BED. STABLE. NO ACUTE DISTRESS. NO SOB. RESPIRATION EVEN AND UNLABORED. SKIN WARM AND DRY TO TOUCH. IVs INTACT AND PATENT. MESHA HEPARIN DRIP @ 1,800 UNITS/HR PER PROTOCOL. AWAITING FOR PTT RESULT. PATIENT IS ALSO DRINKING GOLYTELY FOR PREP FOR COLONOSCOPY TOMORROW. PATIENT AWARE OF WOUND DEBRIDEMENT WITH IS SCHEDULED FOR TOMORROW. ALL NEEDS MET. KEPT CLEAN AND DRY. CALLL LIGHT IN REACH. CONT TO MONITOR
--- NOTE | 2019-05-30 19:31 | NUR ---
PHONED PAGED DR BECERRA APTT 150 , CALL BACK PENDING .
--- NOTE | 2019-05-30 19:53 | NUR ---
Paged Dr. Ramires s/w [place].
[2019-05-30 20:29] VITALS: BP_SYST 135
--- NOTE | 2019-05-30 20:31 | NUR ---
DR BECERRA UPDATED & AWARE OF ELEVATED PTT , WILL FOLLOW PROTOCOL .
[2019-05-30] MEDS: LEVOFLOXACIN 500 MG/D5W 100 ML IV SCH (21:05)
[2019-05-30] MEDS: LORazepam 1 MG TABLET PO SCH (21:06)
[2019-05-30] MEDS: QUEtiapine FUMARATE 200 MG TAB.SR.24H PO SCH (21:11)
[2019-05-30] MEDS: HEPARIN 25,000 UNITS/D5W 250ML 250 ML IV PRN (21:13)
--- NOTE | 2019-05-30 23:41 | NUR ---
TURNING & REPOSITIONING OFF LOADING WITH PILLOWS ON SCHEDULE , PATIENT AWAKE ALERT KEPT CLEAN ALSO DRY NEEDED .
--- NOTE | 2019-05-30 23:42 | NUR ---
GOLYTELY PO ASSIST SEMI CLEAR STOOL IS NOTED PT KEPT UP RIGHT POSITION .
--- NOTE | 2019-05-30 23:50 | NUR ---
HEPARIN GTT CONTINUED RATE 1700 UNITS / HOUR NO ADVERSE REACTION NOTED CONT. TO MONITOR .
[2019-05-31 02:01] VITALS: BP_SYST 117
--- NOTE | 2019-05-31 02:10 | NUR ---
PATIENT NPO THIS HOUR FOR AM PROCEDURE & AWARE .
--- NOTE | 2019-05-31 03:00 | NUR ---
HEPARIN STOP THIS HOUR FOR AM PROCEDURE PER DR HERNAN BANGURA .
[2019-05-31 03:12] LABS: BASOPHILS % (AUTO) 0.5 % (0.0-2.0); EOSINOPHILS # (AUTO) 0.1 K/uL (0.0-0.4); EOSINOPHILS % (AUTO) 1.5 % (0.0-4.0); HEMATOCRIT 22.9 % (36-54); LYMPHOCYTES # (AUTO) 1.6 K/uL (1.0-5.5); LYMPHOCYTES % (AUTO) 17.1 % (20.5-51.5); MEAN CORPUSCULAR HEMOGLOBIN 22 pg (27-31); MEAN CORPUSCULAR HGB CONC 31 % (32-36); MEAN CORPUSCULAR VOLUME 71 fL (79.0-98.0); MONOCYTES # (AUTO) 0.8 K/uL (0.0-1.0); MONOCYTES % (AUTO) 8.3 % (1.7-9.3); NEUTROPHILS # (AUTO) 6.7 K/uL (1.8-7.7); NEUTROPHILS % (AUTO) 72.6 % (40.0-70.0); PLATELET COUNT (AUTO) 390 K/uL (130-430); RED BLOOD CELL COUNT(AUTO) 3.22 MIL/uL (4.2-6.2); WHITE BLOOD COUNT (AUTO) 9.3 K/uL (4.8-10.8)
--- NOTE | 2019-05-31 03:49 | NUR ---
APTT @ 112.2 HEPARIN GTT HAS BEEN STOP FOR PROCEDURE , AWARE .
[2019-05-31 04:22] LABS: ALBUMIN 1.7 g/dL (3.4-4.8); CALCIUM 7.7 mg/dL (8.4-11.0); CREATININE 0.68 mg/dL (0.55-1.30); POTASSIUM 3.3 mmol/L (3.5-5.1); TOTAL BILIRUBIN 0.3 mg/dL (0.0-1.0)
--- NOTE | 2019-05-31 05:21 | NUR ---
TAP WATER ENEMA IMPLEMENTED DONE CLEAR TO CLEAR STOOL RETURN patient did tolerate , kept clean / .
--- NOTE | 2019-05-31 05:23 | NUR ---
WOUND CARE IMPLEMENTED TO LEFT & RIGHT Ischium as ordered patient tolerate , PT is having watery stool d/t GOLYTELY as ordered .
[2019-05-31] MEDS ORDERED: MIDAZOLAM HCL 5 MG/5 ML VIAL ONE (06:36)
[2019-05-31] MEDS ORDERED: fentaNYL CITRATE/PF 100 MCG/2 ML AMP ONE (06:36)
[2019-05-31] MEDS ORDERED: SIMETHICONE 40 MG/0.6 ML ML ONE (06:36)
--- NOTE | 2019-05-31 07:00 | NUR ---
GI LAB: PT OFF UNIT TO GI LAB FOR SCHEDULED COLONOSCOPY.
[2019-05-31] MEDS: FERROUS SULFATE 325 MG TABLET.DR PO SCH (09:00)
[2019-05-31] MEDS: HALOPERIDOL 5 MG TABLET (HALDOL) PO SCH ×2 (09:00→22:26)
[2019-05-31] MEDS: BENZTROPINE MESYLATE 1 MG TABLET PO SCH ×2 (09:00→22:25)
[2019-05-31] MEDS: BALSAM PERU/CASTOR OIL 60 GM OINT...G. TP SCH (09:00)
[2019-05-31] MEDS: FAMOTIDINE 20 MG TABLET PO SCH (09:00)
[2019-05-31] MEDS: CITALOPRAM HYDROBROMIDE 20 MG TABLET PO SCH (09:00)
--- NOTE | 2019-05-31 09:30 | NUR ---
GI LAB: PT RETURNED TO ROOM VIA HOSPITAL BED, S/P COLONOSCOPY, VSS, NO S/S OF DISTRESS, ASLEEP, AROUSED VIA LIGHT TACTILE STIMULI, WILL CONT' TO MONITOR AND ASSESS.
[2019-05-31 09:35] VITALS: BP_SYST 117
--- NOTE | 2019-05-31 09:40 | NUR ---
PVCs: PT REPORTED HAVING FREQUENT PVC's ON TELEMONITOR, ELECTRODES REPLACED, PT CLEANED AND REPOSITIONED FOR COMFORT, DR. DUEÑAS CALLED FOR ORDERS. MESSAGE LEFT WITH EXCHANGE, AWAITING CALL BACK. WILL CONT' TO MONITOR AND ASSESS.
--- NOTE | 2019-05-31 09:50 | NUR ---
NURSES NOTES: SEVERAL CALLS PLACED TO BROTHER OF THE PT FOR REQUESTED CONSENT FOR ANESTHESIA, NO RESPONSE TO CALLS, WILL CONT' TO SEARCH FOR ALTERNATE NUMBERS FOR CONTACTS.
--- NOTE | 2019-05-31 10:00 | NUR ---
ASSUMPTION OF CARE: RECEIVED PT FROM GI LAB, POST COLONOSCOPY WIT REMOVAL OF POLYPS, PT IS STABLE, VSS, AFEBRILE, NO INDICATION OF RONALDO OR DISCOMFORT. WILL RESUME POC, CONT' MONITOR AND ASSESS.
--- NOTE | 2019-05-31 10:00 | NUR ---
HEPARIN DRIP: SPOKE WITH DR. RIVERS, REQUESTED DO NOT RESUME HEPARIN DRIP AT THIS TIME, PT WILL HAVE POSSIBLE SURGICAL DEBRIDEMENT ONCE CONSENT SIGNED AND PLACED ON CHART.
--- NOTE | 2019-05-31 10:03 | NUR ---
Paged Dr. Glover per nurse request, patient having PVC's on telemetry.
--- NOTE | 2019-05-31 11:40 | NUR ---
Cardiac consult called: for Dr. Magaña, regarding ST with frequent PVCs, ordered by Dr. Glover, spoke with Kady.
[2019-05-31 12:26] VITALS: BP_SYST 120
--- NOTE | 2019-05-31 14:00 | NUR ---
CONSENT: FAMILY MEMBER AT NURSES STATION, STATES HE IS THE BROTHER OF THE PT AND IS HERE TO SIGN THE NEEDED CONSENT FORMS FOR PT TX OF WOUNDS, ALSO STATES HE HAS ALREADY BY INFORMED BY THE DRMaxim ABOUT THE BENEFITS AND RISK OF ANESTHESIA, AGREES TO SIGN CONSENT. CONSENT SIGNED, WILL CONT' WITH POC.
--- NOTE | 2019-05-31 14:48 | NUR ---
Discharge Planning: DCP faxed pt referral to [facility] ([phone] p [phone]) DCP to follow up.
[2019-05-31 16:50] VITALS: BP_SYST 118
--- NOTE | 2019-05-31 17:00 | NUR ---
Wound Care Update: Per ELISA Laughlin, surgical and anesthesia consents were signed. Informed Dr. Mccallum.
--- NOTE | 2019-05-31 17:00 | NUR ---
OR: SPOKE WITH DR. RIVERS, INFORMED OF SIGNED CONSENTS FOR SURGERY AND ANESTHESIA, STATES "OKAY". WILL CONT' WITH POC.
[2019-05-31] MEDS: SOD FERRIC GLUC COMPLEX/SUC 125 MG in NS 100 ML IV SCH (18:48)
--- NOTE | 2019-05-31 20:15 | NUR ---
HEPARIN DRIP ON HOLD PER MD DR RIVERS FOR AM PROCEDURE .
[2019-05-31 20:52] VITALS: BP_SYST 131
--- NOTE | 2019-05-31 21:25 | NUR ---
WOUND VAC HAS BEEN ORDERED FOR POST OP.
--- NOTE | 2019-05-31 22:00 | NUR ---
WOUND VAC HAS BEEN DELIVERED AND WITH CORE MAKER .
--- NOTE | 2019-05-31 22:05 | NUR ---
LEVAQUIN 500 MG IVPB ADMINISTER ORDERED , PATIENT AWAKE ALERT NO ADVERSE REACTION NOTED / .
[2019-05-31] MEDS: LORazepam 1 MG TABLET PO SCH (22:25)
[2019-05-31] MEDS: LEVOFLOXACIN 500 MG/D5W 100 ML IV SCH (22:25)
[2019-05-31] MEDS: QUEtiapine FUMARATE 200 MG TAB.SR.24H PO SCH (22:26)
[2019-06-01] VITALS (8 sets, daily range): BP systolic 110–153
--- NOTE | 2019-06-01 | NUR ---
NPO , PATIENT REMAINS NPO STATUS FOR AM PROCEDURE .
--- NOTE | 2019-06-01 00:52 | NUR ---
NEW ORDERS LABS FOR AM , CBC & CMP DR LEANA BANGURA .
--- NOTE | 2019-06-01 03:11 | NUR ---
REPOSITION & TURNING OFF LOADING WITH PILLOWS ON TWO HOUR SCHEDULE , NO SOB ALSO KEPT CLEAN & DRY NEEDED & PRN .
--- NOTE | 2019-06-01 06:46 | NUR ---
WOUND CARE IMPLEMENTED TO LEFT & RIGHT BUTTOCKS ORDERED , PATIENT NPO AWAKE & ALERT TOLERATED / .
[2019-06-01 07:04] LABS: BASOPHILS % (AUTO) 0.5 % (0.0-2.0); EOSINOPHILS # (AUTO) 0.1 K/uL (0.0-0.4); EOSINOPHILS % (AUTO) 1.5 % (0.0-4.0); HEMATOCRIT 24.2 % (36-54); HEMOGLOBIN 7.3 g/dL (14.0-18.0); LYMPHOCYTES # (AUTO) 0.8 K/uL (1.0-5.5); LYMPHOCYTES % (AUTO) 9.8 % (20.5-51.5); MEAN CORPUSCULAR HEMOGLOBIN 22 pg (27-31); MEAN CORPUSCULAR HGB CONC 30 % (32-36); MEAN CORPUSCULAR VOLUME 73 fL (79.0-98.0); MONOCYTES # (AUTO) 0.6 K/uL (0.0-1.0); MONOCYTES % (AUTO) 7.3 % (1.7-9.3); NEUTROPHILS # (AUTO) 6.5 K/uL (1.8-7.7); NEUTROPHILS % (AUTO) 80.9 % (40.0-70.0); PLATELET COUNT (AUTO) 396 K/uL (130-430); RED BLOOD CELL COUNT(AUTO) 3.33 MIL/uL (4.2-6.2); RED CELL DISTRIBUTION WIDTH 23.3 % (9.0-15.0)
[2019-06-01 07:39] LABS: ALBUMIN 1.8 g/dL (3.4-4.8); CALCIUM 8.1 mg/dL (8.4-11.0); CREATININE 0.66 mg/dL (0.55-1.30); POTASSIUM 3.2 mmol/L (3.5-5.1); TOTAL BILIRUBIN 0.2 mg/dL (0.0-1.0)
--- NOTE | 2019-06-01 07:50 | NUR ---
OPENING NOTE RECEIVED PATIENT RESTING IN BED. EASILY AROUSABLE. ROOM AIR. NO ACUTE DISTRESS. NO SOB. RESPIRATION EVEN AND UNLABORED. SKIN WARM AND DRY TO TOUCH. IVs INTACT AND PATENT. DISCUSSED PLAN OF CARE; PT VERBALIZED UNDERSTANDING. ALL NEEDS MET. CALL LIGHT IN REACH. CONT TO MONITOR
--- NOTE | 2019-06-01 08:54 | NUR ---
MEDS ALL DUE MEDS ADMINISTERED, MESHA WELL. TEACHING DONE ON MEDICATION AND ASE. ALL NEEDS MET. CONT TO MONITOR Addendum: 06/01/19 at 0903 by Mariely Peguero RN DISREGARD; WRONG PATIENT
--- NOTE | 2019-06-01 08:55 | NUR ---
SEEN AND EXAMINED BY AT BEDSIDE
[2019-06-01] MEDS: FERROUS SULFATE 325 MG TABLET.DR PO SCH (09:00)
[2019-06-01] MEDS: CITALOPRAM HYDROBROMIDE 20 MG TABLET PO SCH (09:00)
[2019-06-01] MEDS: BENZTROPINE MESYLATE 1 MG TABLET PO SCH ×2 (09:00→20:06)
[2019-06-01] MEDS: HALOPERIDOL 5 MG TABLET (HALDOL) PO SCH ×2 (09:00→20:06)
[2019-06-01] MEDS: FAMOTIDINE 20 MG TABLET PO SCH (09:00)
--- NOTE | 2019-06-01 10:45 | NUR ---
BT INITIATION: Consent signed per brother Bill agreeing to administration of blood. Blood has been type and crossmatched. Blood sent from blood bank. Information on unit of blood checked against patient wristband at bedside by two nurses. All information matches. Patient or responsible libertarian informed of potential complications associated with blood transfusion. Informed of possible transfusion reaction symptoms. Aware of need to notify nurse at once of itching, shortness of breath, flushing, feeling of impending doom, or other symptoms not previously present. Vital signs taken within 5 minutes prior to initiation of transfusion. RN will remain with patient for first 15 minutes of transfusion at which time vital signs will be re-assessed.
[2019-06-01] MEDS: BALSAM PERU/CASTOR OIL 60 GM OINT...G. TP SCH (10:56)
[2019-06-01] MEDS: SOD FERRIC GLUC COMPLEX/SUC 125 MG in NS 100 ML IV SCH (11:00)
--- NOTE | 2019-06-01 11:55 | NUR ---
OFF UNIT PATIENT PICKED UP BY 2 OR NURSES. BROTHER AT BEDSIDE PATIENT STABLE; GETTING ANXIOUS FOR SURGERY AND NURSES AND ANESTHESIOLOGIST AWARE. NO ACUTE DISTRESS. CONT WITH BLOOD TRANSFUSION; MESHA WELL. NO S/SX ASE NOTED AT THIS TIME.
[2019-06-01] MEDS ORDERED: BUPIVACAINE /EPINEPHRINE/PF 0.25% 30 ML VIAL INJ ONE (12:00)
[2019-06-01] MEDS ORDERED: CEFAZOLIN 2 GM IVPB PREMIX 50 ML IV ONE (12:00)
[2019-06-01] MEDS ORDERED: PROPOFOL 200MG/ 20ML VIAL (DIPRIVAN) IV ONE (12:00)
[2019-06-01] MEDS ORDERED: NS 1000 ML IV.SOLN IV ONE (12:00)
[2019-06-01] MEDS ORDERED: NS IRRIG SOLN 1000 ML IR ONE (12:00)
[2019-06-01] MEDS ORDERED: MIDAZOLAM HCL 5 MG/5 ML VIAL IVP ONE (12:00)
[2019-06-01] MEDS ORDERED: ACETAMINOPHEN 325 MG TABLET PO PRN (13:15)
[2019-06-01] MEDS ORDERED: ONDANSETRON HCL 4 MG/2 ML VIAL IVP PRN (13:15)
--- NOTE | 2019-06-01 14:10 | NUR ---
ON UNIT PATIENT RETURNED FROM OR. PATIENT IS AWAKE ALERT. PATIENT DENIES ANY PAIN. ROOM AIR. NO ACUTE DISTRESS. NO SOB. RESPIRATION EVEN AND UNLABORED. CONT BLOOD TRANSFUSION WITH NO S/SX ASE NOTED; MESHA WELL. SKIN WARM AND DRY TO TOUCH. DEBRIDEMENT DONE TO LEFT AND RIGHT ISCHIAL TUBEROSITY WITH WOUND VAC ATTACHED TO LEFT ISCHIAL TUBEROSITY; PATENT AND SUCTIONING. REPOSITIONED FOR COMFORT.
--- NOTE | 2019-06-01 14:25 | NUR ---
BT BLOOD TRANSFUSION COMPLETED WITH NO S/SX ASE NOTED. PATIENT STABLE; MESHA WELL. SKIN WARM AND DRY TO TOUCH. ALL NEEDS MET. CONT TO MONITOR. CALL LIGHT IN REACH
--- NOTE | 2019-06-01 15:43 | NUR ---
SEEN AND EXAMINED BY AT BEDSIDE REPORTED TO MD PATIENT IS ACCEPTED AT [facility]
[2019-06-01] MEDS: metroNIDAZOLE 500 mg/NS 100 ML IV SCH ×2 (16:16→21:16)
[2019-06-01] MEDS: CEFAZOLIN 2 GM IVPB PREMIX 50 ML IV SCH ×2 (16:23→20:30)
--- NOTE | 2019-06-01 17:30 | NUR ---
NOTE PATIENT RESTING IN BED AWAKE. NO ACUTE DISTRESS. NO SOB. ASSISTED DEMONSTRATOR SEWING TECHNIQUES WITH INCONTINENCE CARE,MESHA WELL. WOUND VAC IN PLACE AND SUCTIONING. NO C/O PAIN AT THIS TIME. CONT TO MONITOR
--- NOTE | 2019-06-01 17:50 | NUR ---
ROMAIN GROVER REGARDING HEPARIN DRIP Addendum: 06/01/19 at 1828 by Mariely Peguero RN LAST PTT 112.2
--- NOTE | 2019-06-01 18:28 | NUR ---
CLOSING NOTE PATIENT AWAKE IN BED. DENIES PAIN. NO ACUTE DISTRESS. NO SOB. WOUND VAC INTACT AND SUCTIONING. KEPT CLEAN AND DRY. ALL NEEDS MET. CALL LIGHT IN REACH. CONT TO MONITOR
--- NOTE | 2019-06-01 18:35 | NUR ---
PAGED PAGED DR. BECERRA, SPOKE WITH FIORELLA.
[2019-06-01] MEDS: HEPARIN 25,000 UNITS/D5W 250ML 250 ML IV PRN (18:50)
--- NOTE | 2019-06-01 18:50 | NUR ---
/HEPARIN DRIP SPOKE TO REGARDING RESTARTING HEPARIN DRIP. LAST PTT 112.2 PER DONT GIVE A BOLUS OF HEPARIN AND START PATIENT ON HEPARIN 1,400 UNITS/HR AND DO A PTT TOMORROW MORNING. ORDER NOTED AND CARRIED OUT
--- NOTE | 2019-06-01 20:00 | NUR ---
PM SHIFT ASSESSMENT Received patient lying in bed, aox2, on room air, vitals stable, denies any pain at this time, IV line to left hand intact and patent, IV line to right hand infiltrated, will start new IV line shortly. Patient incontinent, wound vac to sacral area noted, wound vac at rate of 125 mm/hg. Patient repositioned and turned with pillow support, bilateral scd in place, safety measures in place, will closely monitor.
[2019-06-01] MEDS: LEVOFLOXACIN 500 MG/D5W 100 ML IV SCH (20:06)
[2019-06-01] MEDS: LORazepam 1 MG TABLET PO SCH (20:06)
[2019-06-01] MEDS: QUEtiapine FUMARATE 200 MG TAB.SR.24H PO SCH (21:17)
--- NOTE | 2019-06-01 21:58 | NUR ---
RN ROUNDS/IV Patient resting quietly in bed, due medications administered, aspiration precautions maintained, patient repositioned and turned with pillow support, New IV line placed to right hand with 22 gauge catheter, secured with opsite and tape, resumed IV antibiotics, left hand with heparin drip infusing at 14 ml/hr, no active bleeding noted, safety and fall precautions in place, will monitor.
--- NOTE | 2019-06-01 23:26 | NUR ---
RN ROUNDS Patient resting quietly in bed, respirations even and unlabored, remains on room air, patient repositioned and turned with pillow support, heparin drip infusing at 14 ml/hr, and IV antibiotics continues to infuse to right hand, safety and fall precautions in place, will closely monitor.
--- NOTE | 2019-06-02 00:05 | NUR ---
RN ROUNDS Patient awake, in no distress, vital signs stable, repositioned with pillow support, safety measures in place.
[2019-06-02 00:35] VITALS: BP_SYST 139
--- NOTE | 2019-06-02 01:59 | NUR ---
RN ROUNDS Patient sleeping, respirations even and unlabored, repositioned with pillow support, safety measures in place, will continue to monitor.
--- NOTE | 2019-06-02 04:16 | NUR ---
RN ROUNDS Patient resting quietly, respirations even and unlabored, incontinence care provided, repositioned and turned with pillow support, safety and fall measures in place, will continue to monitor.
--- NOTE | 2019-06-02 06:03 | NUR ---
RN ROUNDS Patient awake, resting quietly, respirations even and unlabored, remains on room air, both IV lines intact and patent, heparin drip continues to infuse @ 14 ml/hr. No active bleeding noted. Patient repositioned and turned with pillow support, wound vac to sacral area intact, safety and fall measures maintained, will continue to monitor until report given to am nurse.
[2019-06-02 06:11] LABS: BASOPHILS # (AUTO) 0.1 K/uL (0.0-0.2); BASOPHILS % (AUTO) 0.8 % (0.0-2.0); EOSINOPHILS # (AUTO) 0.1 K/uL (0.0-0.4); HEMATOCRIT 26.3 % (36-54); HEMOGLOBIN 8.2 g/dL (14.0-18.0); LYMPHOCYTES # (AUTO) 1.6 K/uL (1.0-5.5); LYMPHOCYTES % (AUTO) 23.5 % (20.5-51.5); MEAN CORPUSCULAR HEMOGLOBIN 23 pg (27-31); MEAN CORPUSCULAR HGB CONC 31 % (32-36); MEAN CORPUSCULAR VOLUME 72 fL (79.0-98.0); MONOCYTES # (AUTO) 0.5 K/uL (0.0-1.0); MONOCYTES % (AUTO) 7.9 % (1.7-9.3); NEUTROPHILS # (AUTO) 4.5 K/uL (1.8-7.7); NEUTROPHILS % (AUTO) 66.8 % (40.0-70.0); PLATELET COUNT (AUTO) 407 K/uL (130-430); RED BLOOD CELL COUNT(AUTO) 3.63 MIL/uL (4.2-6.2); RED CELL DISTRIBUTION WIDTH 24.4 % (9.0-15.0); WHITE BLOOD COUNT (AUTO) 6.8 K/uL (4.8-10.8)
[2019-06-02 06:19] LABS: ALBUMIN 1.9 g/dL (3.4-4.8); CALCIUM 8.2 mg/dL (8.4-11.0); CREATININE 0.98 mg/dL (0.55-1.30); POTASSIUM 3.2 mmol/L (3.5-5.1); TOTAL BILIRUBIN 0.5 mg/dL (0.0-1.0)
[2019-06-02 08:35] VITALS: BP_SYST 164
[2019-06-02] MEDS: CITALOPRAM HYDROBROMIDE 20 MG TABLET PO SCH (10:03)
[2019-06-02] MEDS: BENZTROPINE MESYLATE 1 MG TABLET PO SCH (10:03)
[2019-06-02] MEDS: FAMOTIDINE 20 MG TABLET PO SCH (10:03)
[2019-06-02] MEDS: HALOPERIDOL 5 MG TABLET (HALDOL) PO SCH (10:03)
[2019-06-02] MEDS: FERROUS SULFATE 325 MG TABLET.DR PO SCH (10:03)
[2019-06-02] MEDS: BALSAM PERU/CASTOR OIL 60 GM OINT...G. TP SCH (10:04)
[2019-06-02] MEDS: SOD FERRIC GLUC COMPLEX/SUC 125 MG in NS 100 ML IV SCH (11:07)
[2019-06-02 12:09] VITALS: BP_SYST 130
[2019-06-02] MEDS: HEPARIN 25,000 UNITS/D5W 250ML 250 ML IV PRN (15:20)
--- NOTE | 2019-06-02 16:44 | NUR ---
Nutrition F/U RD reviewed pt's current EMR including diet Hx, physician notes, nursing notes, pertinent labs/meds/procedures, care trends and care activity. Current Diet Order: Clear liquid diet x1 day Subjective information: Pt seen resting in bed, w/ RN providing care at bedside. Pt has been on NPO/clear liquid diet status for the past 5 days. Pt is POD 1 s/p debridement to R and L hips for decubitus ulcers and wound vac placement per EMR. Pt would benefit from increased nutritional needs for healing. Current PO intake: 15% average x1 meal -- negligible Estimated Energy Expenditure (kcals/day) 9073-2873 kcal/day (30-35 kcal/kg CBW for wound healing) Estimated Protein Required (g/day) 88-110 gm/day (1.2-1.5 gm/kg CBW for wound healing) Estimated Fluid Required (l/day) 2.2-2.6 L/day (1 ml/kcal/day for maintenance) Problem/Etiology/Signs/Symptoms Increased nutritional needs related to metabolic demands as evidenced by estimated nutritional requirements for wound healing. *ongoing Inadequate nutrient intake r/t medical procedure AEB pt's NPO status and PO intake meeting <75% of estimated calorie and protein needs. *ongoing Expected Outcomes/Goals - Monitor advancement of diet, appetite and PO intakes w/ goal of pt meeting greater than 85% of estimated nutritional needs, labs trending WNL, normal GI function, and skin integrity/wt maintenance Dietitian Recommendations * Consider advance to regular diet w/ Ensure Enlive BID and Christian BID (ONS and modulars provide 880 kcal/day, 45 gm protein/day) Follow Up High Risk: F/U in 2-3 days
--- NOTE | 2019-06-02 16:50 | NUR ---
Dietitian Recommendations * Consider advance to regular diet w/ Ensure Enlive BID and Christian BID (ONS and modulars provide 880 kcal/day, 45 gm protein/day) LP, RD Pt has been NPO/clear liquid diet status x5 days Please refer to Nutrition F/U for details.
--- NOTE | 2019-06-02 18:11 | NUR ---
TRANSPORT CALLED [facility] FOR [facility]IPPING AND RECEIVING SUPERVISOR. GOING TO [facility]. SHIPPING AND RECEIVING SUPERVISOR IS SET FOR 1999. GOING TO ROOM 302B SPOKE WITH EPSI
[2019-06-02 18:14] VITALS: BP_SYST 141
[2019-06-02 19:58] VITALS: BP_SYST 144
[2019-06-02 20:00] VITALS: BP_SYST 144
--- NOTE | 2019-06-02 20:30 | NUR ---
RN ROUNDS Received patient lying in bed, aox2, vital signs stable, IV line heplocked, stopped heparin drip, patient will be transfered to [facility] this evening, wound vac removed to left and right buttocks, wound documentation pictures taken, sacral dressings applied to wound, incontinence care provided. .
--- NOTE | 2019-06-02 21:00 | NUR ---
TRANSFER Report given to Peewee at [facility], medic personnel picked up patient, vital signs stable, all belongings accounted for, called brother of patient, spoke to Santy Macias and updated him on transfer to [facility], agreeable. All paperworks sent with patient and medic personnel.
== END 2019-06-02 20:35 | DRG 853 ==
LOC: SED 11:09 → STU 13:56
PROVIDERS: ADMIT Internal Medicine; ATTEND Internal Medicine
PROC: 30233N1 Transfusion of Nonautologous Red Blood Cells into Peripheral Vein, Percutaneous Approach (ICD-10-PCS; 2019-05-26)
PROC: 0DJD8ZZ Inspection of Lower Intestinal Tract, Via Natural or Artificial Opening Endoscopic (ICD-10-PCS; 2019-05-30)
PROC: 0DJ08ZZ Inspection of Upper Intestinal Tract, Via Natural or Artificial Opening Endoscopic (ICD-10-PCS; 2019-05-30 08:45)
PROC: 0DBM8ZZ Excision of Descending Colon, Via Natural or Artificial Opening Endoscopic (ICD-10-PCS; 2019-05-31)
PROC: 0HBHXZZ Excision of Right Upper Leg Skin, External Approach (ICD-10-PCS; 2019-06-01)
PROC: 0JBL0ZZ Excision of Right Upper Leg Subcutaneous Tissue and Fascia, Open Approach (ICD-10-PCS; principal; 2019-06-01 12:00)
DX: A41.9 Sepsis, unspecified organism (principal); K57.31 Diverticulosis of large intestine without perforation or abscess with bleeding; L89.154 Pressure ulcer of sacral region, stage 4; I82.411 Acute embolism and thrombosis of right femoral vein; N39.0 Urinary tract infection, site not specified; F20.0 Paranoid schizophrenia; I82.431 Acute embolism and thrombosis of right popliteal vein; L89.229 Pressure ulcer of left hip, unspecified stage; L89.219 Pressure ulcer of right hip, unspecified stage; L89.309 Pressure ulcer of unspecified buttock, unspecified stage; D50.9 Iron deficiency anemia, unspecified; K44.9 Diaphragmatic hernia without obstruction or gangrene; K22.70 Barrett's esophagus without dysplasia; K20.9 Esophagitis, unspecified; K64.8 Other hemorrhoids; B96.1 Klebsiella pneumoniae [K. pneumoniae] as the cause of diseases classified elsewhere; D63.8 Anemia in other chronic diseases classified elsewhere; F03.90 Unspecified dementia, unspecified severity, without behavioral disturbance, psychotic disturbance, mood disturbance, and anxiety; I49.3 Ventricular premature depolarization; W18.39XA Other fall on same level, initial encounter; K63.5 Polyp of colon; Z87.19 Personal history of other diseases of the digestive system; Z74.01 Bed confinement status; Y93.89 Activity, other specified; Y92.89 Other specified places as the place of occurrence of the external cause; Y99.8 Other external cause status
CPT/HCPCS: 36415; 43235; 45378; 45380; 71045; 80048; 80053; 80061; 81000-TC; 82272; 82728; 83540-TC; 83550-TC; 84443-TC; 85007; 85025; 85027; 85610-TC; 85730-TC; 86886; 86900; 86901; 86920; 87040-TC; 87086; 87186-TC; 88304; 88305; 93005; 93306; 93970; 99285; A6550; G0378; J0690; J1644; J1956; J2250; J2704; J2916; J3010; J3490; J7030; J7040; J7050; P9021

== ENCOUNTER 2019-08-01 10:12 | Inpatient (IN) | payer OTHER, MEDICAID ==
[~2019-08-01] VITALS: Ht 175.3 cm; Wt 66.7 kg
[~2019-08-01 10:12] MED LIST: BENZ1TAB76 PO; ESCI20TA PO; FAMO40TA7 PO; FERR-69 PO; HAL5 PO; LORA1TAB PO; QUET400T5 PO
--- NOTE | 2019-08-01 10:19 | NUR ---
Pt placed in bed 3 by CHRISSYS
--- NOTE | 2019-08-01 10:20 | NUR ---
Patient brought in by ambulance, 1 episode of coffee-ground emesis per facility staff. Patient is awake and oriented x2, respirations even and unlabored, bed-bound, Tachycardic, all other VS WNL. Will continue to monitor.
[2019-08-01 10:23] VITALS: BP_SYST 97
--- NOTE | 2019-08-01 10:36 | NUR ---
# 22 gauge angiocath placed to right wrist. Use of asceptic technique. Opsite placed over site. Blood return noted. Blood for lab drawn from site. Flushed with 10 cc of normal saline. No evidence of infiltration noted. Patient tolerated well.
[2019-08-01] MEDS ORDERED: NACL 0.9% 1,000 ML IV ONE (10:45)
--- NOTE | 2019-08-01 10:50 | NUR ---
X-ray done at bedside. Patient tolerated the procedure well.
--- NOTE | 2019-08-01 10:50 | NUR ---
ER Dr. Roberts at bedside examining patient.
--- NOTE | 2019-08-01 11:02 | NUR ---
ECG done at bedside as ordered by Dr. Roberts. Patient tolerated the procedure well.
--- NOTE | 2019-08-01 11:20 | NUR ---
# 16 FR In and Out catheter with use of sterile technique. Immediate return of 300 ml clear yellow urine noted. Urine sample collected and sent to lab. Pt tolerated procedure well. Patient unable to toilet self.
[2019-08-01 11:41] LABS: BASOPHILS # (AUTO) 0.1 K/uL (0.0-0.2); BASOPHILS % (AUTO) 0.6 % (0.0-2.0); EOSINOPHILS # (AUTO) 0.1 K/uL (0.0-0.4); EOSINOPHILS % (AUTO) 1.4 % (0.0-4.0); HEMATOCRIT 24.8 % (36-54); HEMOGLOBIN 8.1 g/dL (14.0-18.0); LYMPHOCYTES # (AUTO) 1.5 K/uL (1.0-5.5); LYMPHOCYTES % (AUTO) 16.2 % (20.5-51.5); MEAN CORPUSCULAR HEMOGLOBIN 28 pg (27-31); MEAN CORPUSCULAR HGB CONC 33 % (32-36); MEAN CORPUSCULAR VOLUME 84 fL (79.0-98.0); MONOCYTES # (AUTO) 0.6 K/uL (0.0-1.0); MONOCYTES % (AUTO) 6.3 % (1.7-9.3); NEUTROPHILS # (AUTO) 7.1 K/uL (1.8-7.7); NEUTROPHILS % (AUTO) 75.5 % (40.0-70.0); PLATELET COUNT (AUTO) 364 K/uL (130-430); RED BLOOD CELL COUNT(AUTO) 2.94 MIL/uL (4.2-6.2); RED CELL DISTRIBUTION WIDTH 18.5 % (9.0-15.0); WHITE BLOOD COUNT (AUTO) 9.3 K/uL (4.8-10.8)
[2019-08-01 11:51] LABS: BILIRUBIN,URINE NEGATIVE (NEGATIVE); BLOOD, URINE NEGATIVE (NEGATIVE); CLARITY/URINE CLEAR (CLEAR); COLOR,URINE YELLOW (YELLOW); GLUCOSE,URINE NEGATIVE (NEGATIVE); KETONES,URINE 1+ (NEGATIVE); LEUKOCYTE ESTERASE ,URINE NEGATIVE (NEGATIVE); NITRITE, URINE NEGATIVE (NEGATIVE); PH,URINE 5.5 (5.0-8.0); PROTEIN URINE NEGATIVE (NEGATIVE); UROBILINOGEN,URINE 0.2 (0.2-1.0)
[2019-08-01 11:54] LABS: INR 1.2 (0.80-1.20); PROTHROMBIN TIME 12.3 SECS (9.5-12.5)
--- NOTE | 2019-08-01 12:03 | NUR ---
Belonging's list and medication reconciliation done.
[2019-08-01 12:05] LABS: CALCIUM 8.1 mg/dL (8.4-11.0); CREATININE 0.55 mg/dL (0.55-1.30)
[2019-08-01 12:12] LABS: ALBUMIN 2.3 g/dL (3.4-4.8); TOTAL BILIRUBIN 0.1 mg/dL (0.0-1.0)
--- NOTE | 2019-08-01 12:32 | NUR ---
Patient is awake and sitting comfortably in bed. VS WNL, respirations even and unlabored. Denied any pain at this time.
[2019-08-01] MEDS ORDERED: PANTOPRAZOLE SODIUM 40 MG/VIAL (PROTONIX) IVP ONE (13:15)
[2019-08-01 13:42] LABS: BASOPHILS # (AUTO) 0.1 K/uL (0.0-0.2); BASOPHILS % (AUTO) 0.7 % (0.0-2.0); EOSINOPHILS # (AUTO) 0.2 K/uL (0.0-0.4); EOSINOPHILS % (AUTO) 1.6 % (0.0-4.0); LYMPHOCYTES # (AUTO) 1.3 K/uL (1.0-5.5); LYMPHOCYTES % (AUTO) 13.7 % (20.5-51.5); MEAN CORPUSCULAR HEMOGLOBIN 27 pg (27-31); MEAN CORPUSCULAR HGB CONC 32 % (32-36); MEAN CORPUSCULAR VOLUME 84 fL (79.0-98.0); MONOCYTES # (AUTO) 0.6 K/uL (0.0-1.0); MONOCYTES % (AUTO) 6.7 % (1.7-9.3); NEUTROPHILS # (AUTO) 7.5 K/uL (1.8-7.7); NEUTROPHILS % (AUTO) 77.3 % (40.0-70.0); PLATELET COUNT (AUTO) 319 K/uL (130-430); RED BLOOD CELL COUNT(AUTO) 2.62 MIL/uL (4.2-6.2); WHITE BLOOD COUNT (AUTO) 9.7 K/uL (4.8-10.8)
[2019-08-01 13:46] LABS: HEMATOCRIT 21.9 % (36-54)
--- NOTE | 2019-08-01 14:10 | NUR ---
Paged Dr. Glover for the critical value of Hgb 7 and Hct 21.9.
--- NOTE | 2019-08-01 14:21 | NUR ---
Still waiting for a bed. MD aware.
--- NOTE | 2019-08-01 15:12 | NUR ---
I have tried to contact Santy Macias, next of kin, both numbers no answer and unable to leave a voicemail. Notified KENYATTA Lion.
--- NOTE | 2019-08-01 15:20 | NUR ---
PRBC given to Munira of Lab.
--- NOTE | 2019-08-01 16:40 | NUR ---
Picked up PRBC from the lab.
--- NOTE | 2019-08-01 16:45 | NUR ---
Administered PRBC running at 75ml/hr as ordered by Dr. Roberts. VS 98/72 HR 112, T 99.7F, RR 22. Patient denied any respiratory distress at this time.
--- NOTE | 2019-08-01 19:20 | NUR ---
Report given and care transferred to ELISA Zhou
--- NOTE | 2019-08-01 19:42 | NUR ---
CONSULT REASON UPPER GI BLEED SPOKE WITH EXCHANGE FOR DOCTOR GAVIOTA RAMIREZ TROUNG IS SALESPERSON BURIAL NEEDS REQUESTED BY DOCTOR DUEÑAS
[2019-08-01] MEDS ORDERED: PANTOPRAZOLE SODIUM 40 MG/VIAL (PROTONIX) IVP SCH (21:00)
--- NOTE | 2019-08-01 21:15 | NUR ---
Pt resting in ED bed Comfortably. Pt denies pain at this time. Pt tolerating fluids and IV blood infusion well. No fever, no flank pain, no SOB. VSS
--- NOTE | 2019-08-01 22:20 | NUR ---
Patient will be admitted to care of . Admitted to Tele unit. Will go to room 123A. Belongings list completed. Complete and up to date summary report printed. SBAR report to be given at bedside with opportunity for questions.
--- NOTE | 2019-08-01 22:20 | NUR ---
Transfer to Telemetry via ACLS protocol. Licensed nurse present. IV present no signs or symptoms of infiltration.
--- NOTE | 2019-08-01 22:48 | NUR ---
ADMIT NOTE Received pt from ER to the floor with a diagnosis of Upper GI Bleed. Admission process initiated. Patient oriented to pain management, safety and call light-teach back not done due to pt's confusion.
[2019-08-01] MEDS ORDERED: PANTOPRAZOLE SODIUM 80 MG in NS 100 ML IV ONE (23:00)
[2019-08-01 23:14] VITALS: BP_SYST 111
[2019-08-01] MEDS ORDERED: PANTOPRAZOLE SODIUM 40 MG/VIAL (PROTONIX) ONE (23:45)
[2019-08-01] MEDS: NS 500 ML IV SCH (23:52)
[2019-08-01] MEDS: PANTOPRAZOLE SODIUM 40 MG in NS 50 ML IV SCH (23:52)
[2019-08-02] VITALS: BP_SYST 111
--- NOTE | 2019-08-02 03:53 | NUR ---
Rounds: Patient is resting in bed, no acute distress. Tolerating room air. IV fluids infusing per MD order. Call light with patient. Will continue monitoring.
[2019-08-02] MEDS: NS 500 ML IV SCH ×2 (04:56→12:11)
[2019-08-02] MEDS: PANTOPRAZOLE SODIUM 40 MG in NS 50 ML IV SCH (04:56)
[2019-08-02] MEDS ORDERED: PANTOPRAZOLE SODIUM 40 MG/VIAL (PROTONIX) ONE (05:02)
--- NOTE | 2019-08-02 06:41 | NUR ---
Dr. Ramirez rounds: MD at bedside to assess patient. stated that patient does not need another EGD since he had one in May 2019. Per MD, he will put in orders to change Protonix drip to Protonix IVP BID and cancel EGD consent. Will endorse to herve PÉREZ.
--- NOTE | 2019-08-02 07:36 | NUR ---
OPENING NOTE Patient resting in the bed. No acute distress. Skin warm and dry to touch. IV intact to right wrist, no redness, no swelling, no drainage. On NS at 75ml/hr and Protonix drip 10ml/hr, infusing well. Safety measure maintained. Call light within reached. Bed locked in low position, side rails up, bed alarm on. Will continue to monitor.
[2019-08-02 07:45] VITALS: BP_SYST 125
[2019-08-02] MEDS ORDERED: PANTOPRAZOLE SODIUM 40 MG/VIAL (PROTONIX) IVP SCH (09:00)
[2019-08-02] MEDS: PANTOPRAZOLE SODIUM 40 MG/VIAL (PROTONIX) IVP SCH ×2 (09:54→20:32)
--- NOTE | 2019-08-02 09:55 | NUR ---
PROTONIX IVP GIVEN, TOLERATED WELL.
--- NOTE | 2019-08-02 10:17 | NUR ---
Nutrition Update Andres Scale 13 noted. Pt admitted for upper GI bleed. Diet: clear liquid BMI: 21.7 kg/m2 RD to follow per nutrition care standards.
--- NOTE | 2019-08-02 11:40 | NUR ---
WOUND CARE DONE, PROCEDURE TOLERATED WELL. NO C/O PAIN. CALL LIGHT WITHIN REACHED. CONTINUE TO MONITOR.
[2019-08-02 12:09] VITALS: BP_SYST 129
--- NOTE | 2019-08-02 13:25 | NUR ---
ROUND Patient resting in the bed. No acute distress. IV intact, IVF infusing well. Safety measure maintained. Call light within reached. Bed locked in low position, side rails up, bed alarm on. Continue to monitor.
--- NOTE | 2019-08-02 13:53 | NUR ---
Dietitian Recommendations * Recommend continuing clear liquid diet (ONS Ensure Clear TID comes standard w/ clear liquid diet; provides 720 kcal/day, 24 gm protein/day) * Recommend Prosource TID, Christian BID (360 kcal/day, 50 gm protein/day) ELMA RD Please refer to Nutrition Assessment for details. Addendum: 08/02/19 at [address] Amended: Links added.
[2019-08-02 16:13] VITALS: BP_SYST 111
[2019-08-02 18:18] LABS: BASOPHILS # (AUTO) 0.1 K/uL (0.0-0.2); BASOPHILS % (AUTO) 0.9 % (0.0-2.0); EOSINOPHILS # (AUTO) 0.5 K/uL (0.0-0.4); EOSINOPHILS % (AUTO) 4.7 % (0.0-4.0); HEMOGLOBIN 9.7 g/dL (14.0-18.0); LYMPHOCYTES # (AUTO) 2.1 K/uL (1.0-5.5); LYMPHOCYTES % (AUTO) 18.7 % (20.5-51.5); MEAN CORPUSCULAR HEMOGLOBIN 29 pg (27-31); MEAN CORPUSCULAR HGB CONC 33 % (32-36); MEAN CORPUSCULAR VOLUME 85 fL (79.0-98.0); MONOCYTES # (AUTO) 0.7 K/uL (0.0-1.0); MONOCYTES % (AUTO) 6.4 % (1.7-9.3); NEUTROPHILS # (AUTO) 7.6 K/uL (1.8-7.7); NEUTROPHILS % (AUTO) 69.3 % (40.0-70.0); PLATELET COUNT (AUTO) 341 K/uL (130-430); RED CELL DISTRIBUTION WIDTH 16.9 % (9.0-15.0)
--- NOTE | 2019-08-02 18:57 | NUR ---
CLOSING NOTE Patient resting in the bed. No acute distress. Skin warm and dry to touch. IV intact to right wrist, no redness, no swelling, no drainage. On NS at 75ml/hr, infusing well. All needs met. Safety measure maintained. Call light within reached. Bed locked in low position, side rails up, bed alarm on. Will endorse to night nurse.
--- NOTE | 2019-08-02 19:50 | NUR ---
Opening Note Received report from herve RN, patient is resting in bed, AA&Ox2, even and unlabored breathing on room air, no signs of acute distress, IV site to right wrist infusing fluids, patient tolerating well, no sign of redness and infiltration, safety, fall, and aspiration precautions in place, bed locked and in lowest position, bed alarm on, three side rails up, call light with patient, will continue to monitor.
[2019-08-02 20:00] VITALS: BP_SYST 139
--- NOTE | 2019-08-02 20:00 | NUR ---
Dr. Glover Spoke with MD over the phone regarding continuing home meds, MD made aware of all patient's home medications, received order to continue all home meds, verified by read back, RN to input.
[2019-08-02] MEDS: QUEtiapine FUMARATE 200 MG TAB.SR.24H PO SCH (20:29)
[2019-08-02] MEDS: NACL 0.9% 1,000 ML IV SCH (20:29)
[2019-08-02] MEDS: HALOPERIDOL 5 MG TABLET (HALDOL) PO SCH (20:30)
[2019-08-02] MEDS: LORazepam 1 MG TABLET PO SCH (20:30)
[2019-08-02] MEDS: BENZTROPINE MESYLATE 1 MG TABLET PO SCH (20:30)
--- NOTE | 2019-08-02 20:35 | NUR ---
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
[2019-08-02] MEDS: CITALOPRAM HYDROBROMIDE 20 MG TABLET PO SCH (20:36)
--- NOTE | 2019-08-02 23:09 | NUR ---
RN Rounds Patient resting in bed, eyes closed, no signs of acute distress, even and unlabored breathing on room air, IV site to right wrist infusing fluids, no signs of infiltration, safety, fall, and aspiration precautions in place, bed locked and in lowest position, bed alarm on, three side rails up, call light with patient, will continue to monitor.
[2019-08-03 01:54] VITALS: BP_SYST 126
--- NOTE | 2019-08-03 02:20 | NUR ---
RN Rounds Patient resting in bed, eyes closed, no signs of acute distress, patient denies pain, even and unlabored breathing on room air, IV fluids infusing, safety, fall, and aspiration precautions in place, call light with patient, no other needs at this time, will continue to monitor.
--- NOTE | 2019-08-03 05:56 | NUR ---
IV RE-INSERTION: Found IV catheter completely out. Catheter tip wholly intact, gauze dressing applied to site, no longer actively bleeding. Restarted on JUNIOR 20 gauge. Successful after 1 attempt. Resumed current IVF of NS and regulated @ 75 per hour. Will observe for any signs of infiltration.
[2019-08-03] MEDS: NACL 0.9% 1,000 ML IV SCH ×2 (06:14→20:00)
[2019-08-03 06:22] LABS: BASOPHILS % (AUTO) 0.6 % (0.0-2.0); EOSINOPHILS # (AUTO) 0.6 K/uL (0.0-0.4); EOSINOPHILS % (AUTO) 8.5 % (0.0-4.0); HEMATOCRIT 23.8 % (36-54); HEMOGLOBIN 7.9 g/dL (14.0-18.0); LYMPHOCYTES # (AUTO) 1.7 K/uL (1.0-5.5); LYMPHOCYTES % (AUTO) 25.2 % (20.5-51.5); MEAN CORPUSCULAR HEMOGLOBIN 29 pg (27-31); MEAN CORPUSCULAR HGB CONC 33 % (32-36); MEAN CORPUSCULAR VOLUME 86 fL (79.0-98.0); MONOCYTES # (AUTO) 0.6 K/uL (0.0-1.0); MONOCYTES % (AUTO) 9.3 % (1.7-9.3); NEUTROPHILS # (AUTO) 3.9 K/uL (1.8-7.7); NEUTROPHILS % (AUTO) 56.4 % (40.0-70.0); PLATELET COUNT (AUTO) 249 K/uL (130-430); RED BLOOD CELL COUNT(AUTO) 2.78 MIL/uL (4.2-6.2); RED CELL DISTRIBUTION WIDTH 16.5 % (9.0-15.0); WHITE BLOOD COUNT (AUTO) 6.8 K/uL (4.8-10.8)
[2019-08-03 06:38] LABS: CALCIUM 7.8 mg/dL (8.4-11.0); CREATININE 0.55 mg/dL (0.55-1.30); POTASSIUM 3.2 mmol/L (3.5-5.1)
--- NOTE | 2019-08-03 06:55 | NUR ---
Dr. Ramirez rounds: MD at bedside to assess patient. Per MD, diet will be advanced to full liquids. MD to input order.
--- NOTE | 2019-08-03 07:05 | NUR ---
Closing Note Patient is resting in bed, AA&Ox2, even and unlabored breathing on room air, no signs of acute distress, IV site to right upper arm 20g infusing fluids, patient tolerating well, safety, fall, and aspiration precautions in place, bed locked and in lowest position, bed alarm on, three side rails up, call light with patient, all needs met, will endorse care to dayshift RN.
[2019-08-03 08:00] VITALS: BP_SYST 142
--- NOTE | 2019-08-03 08:00 | NUR ---
ASSUMPTION OF CARE: RECEIVED PT A/A/OX 1-2, TO NAME, SITUATION, DX:FLUID VOLUME DEFICIT, R/T UPPER GI BLEED, VSS, BREATH SOUNDS ARE CLEAR, BREATHING UNLABORED, NO S/S OF DISTRESS, IV SITE INTACT, PATENT, NO REDNESS OR SWELLING, AFEBRILE, NO C/O PAIN, ORIENTED TO UNIT, CALL LIGHT PLACED WITHIN REACH, WILL CONT' TO MONITOR AND ASSESS.
[2019-08-03] MEDS: PANTOPRAZOLE SODIUM 40 MG/VIAL (PROTONIX) IVP SCH ×2 (08:56→20:49)
[2019-08-03] MEDS: HALOPERIDOL 5 MG TABLET (HALDOL) PO SCH ×2 (08:56→20:50)
[2019-08-03] MEDS: BENZTROPINE MESYLATE 1 MG TABLET PO SCH ×2 (08:56→20:50)
[2019-08-03] MEDS: FAMOTIDINE 20 MG TABLET PO SCH (08:56)
[2019-08-03] MEDS: FERROUS SULFATE 325 MG TABLET.DR PO SCH (08:56)
--- NOTE | 2019-08-03 09:00 | NUR ---
NEWS CAMERA OPERATOR: MORNING MEDS GIVEN, PER ORDERED BY Maury, TOLERATED WELL, REPOSITIONED FOR COMFORT, CALL LIGHT PLACED WITHIN REACH, WILL CONT' TO MONITOR AND ASSESS.
--- NOTE | 2019-08-03 12:24 | NUR ---
Case mgt: Dr. Glover requested LTAC eval--pt most likely will not meet criteria for LTAC--[facility] notified of eval at [phone]--she will come by hospital to review referral packet/patient--pt is bedbound, has wounds to buttocks, no G-tube--pt takes PO fluids--clear/full liq diet--H/H dropped from 9.7 to 7.9 today-- ELISA
[2019-08-03 12:52] VITALS: BP_SYST 104
--- NOTE | 2019-08-03 13:57 | NUR ---
Case mgt: Per Maria Teresa at [facility], pt does not meet criteria for LTAC upon her review of chart --Dr. Glover requesting to s/w Maria Teresa--Maria Teresa indicates she will call Dr. Glover to discuss case.
--- NOTE | 2019-08-03 14:44 | NUR ---
WOUND EVALUATION: Wound Consult received from Dr. Glover. Thank you, Dr. Glover, for the consult. Patient received in a John Bed with an IsoFlex SAM mattress with low air-loss therapy initiated, awake, alert, and oriented x 2-3. Patient is unable to turn in bed independently. Andres Score is a 15. Past Medical History: Schizophrenia, Cognitive Communication Deficit, Dementia, Hypotension, PE/DVT, GERD, history of falls, Depression, Anxiety, Chronic Pain Syndrome, Anemia, Dysphagia and Pressure ulcers. Recent Labs: WBC 6.8, RBC 2.78, hemoglobin 7.9, hematocrit 23.8, potassium 3.2, chloride 111, GFR 158, calcium 7.8, albumin 2.3, serum total protein 6.0. Microbiology: Blood culture results 2 in progress. MRSA screen results in progress. Intrinsic factors that delay wound healing: Anemia, Hypoalbuminemia. Extrinsic factors that delay wound healing: Decreased mobility. Wound Assessment: 1. Left Buttock near Ischium: Stage IV pressure ulcer, present on admission. Site has 60% yellow slough, 40% red tissue. No odor, small yellow purulent drainage. Periwound has blanchable erythema and scar tissue. Slough area is soft to touch, with wound cavity beneath (undermining present from 92 o'clock: 9 o'clock: 1.1 cm; 12 o'clock: 2.8 cm). Bone is palpable. Wound measures 5.0 cm x 5.0 cm x 1.9 cm. Recommend: Cleanse wound with normal saline. Apply Calmoseptine cream to joyce-wound. Apply Venelex ointment to wound bed. Pack wound with one 2.2 inch TenderWet dressing. Cover with foam dressing. Perform wound care daily, and as needed for dressing soiling or dislodgement. 2. Right Buttock near Ischium: Stage IV pressure ulcer, present on admission. Site has 70% red tissue, 30% yellow slough. No odor, no drainage. No odor, small yellow purulent drainage. Periwound has blanchable erythema and scar tissue. Slough area is soft to touch, with wound cavity beneath (undermining present from 104 o'clock: 10 o'clock: 0.8 cm; 12 o'clock: 0.6 cm; 3 o'clock: 1.7 cm; 4 o'clock: 1.2 cm). Bone is palpable. Wound measures 3.0 cm x 3.5 cm x 2.2 cm. Recommend: Cleanse wound with normal saline. Apply Calmoseptine cream to joyce-wound. Apply Venelex ointment to wound bed. Pack wound with one 1.6 inch TenderWet dressing. Cover with foam dressing. Perform wound care daily, and as needed for dressing soiling or dislodgement. 3. Gluteal Sulcus: Superior aspect of crevice of gluteal sulcus has blanchable red erythema and denuded tissue from IAD/MASD. Recommend: Cleanse involved area with mild soap and water. Pat dry. Apply Calmoseptine cream to involved area. Cover with sacral foam dressing. Perform site care daily, and as needed for dressing soiling or dislodgment. 4. Right Olecranon: Unstageable pressure ulcer, present on admission. Wound bed has 100% yellow slough. No odor, no drainage. Periwound is erythematous. Wound measures 1.8 cm x 1.0 cm. Recommend: Cleanse wound with normal saline. Apply Calmoseptine cream to joyce-wound. Apply Venelex ointment to wound bed. Cover with foam dressing. Perform wound care daily, and as needed for dressing soiling or dislodgement. Also recommend: Encourage and assist patient with repositioning [id number] only every [address] one pillow underneath lower back and one pillow underneath lower extremities (hand should freely slide underneath buttock/Sacral areas) bilaterally. Place an additional pillow underneath one side of noble when turning patient. Off-load pressure areas with pillows for pressure re-distribution. Offload, elevate and float bilateral heels with one pillow lengthwise under each extremity at all times. Perform skin care and monitor skin integrity Q shift. Use Calmoseptine cream on buttocks and other moisture susceptible areas QID and as needed for soiling. Maintain patient on a low air-loss mattress. Recommend surgical consult for pressure ulcers on bilateral buttocks.
[2019-08-03] MEDS ORDERED: MENTHOL/ZINC OXIDE 113 GM OINT. TP PRN (16:00)
[2019-08-03 17:02] VITALS: BP_SYST 134
--- NOTE | 2019-08-03 17:40 | NUR ---
VISIT: AT BEDSIDE FOR ASSESSMENT OF PT, NEW ORDERS GIVEN, WILL CONT' WITH POC.
--- NOTE | 2019-08-03 20:00 | NUR ---
AWAKE, ALERT. BOUTS OF CONFUSION NOTED. ON ROOM AIR. BREATH SOUNDS ESSENTIALLY CLEAR. POX 98%. BOWEL SOUNDS (+). SINUS RHYTHM WITH OCC PVC'S. CONTACT ISOLATION OBSERVED.
[2019-08-03] MEDS: CITALOPRAM HYDROBROMIDE 20 MG TABLET PO SCH (20:50)
[2019-08-03] MEDS: LORazepam 1 MG TABLET PO SCH (20:50)
[2019-08-03] MEDS: QUEtiapine FUMARATE 200 MG TAB.SR.24H PO SCH (20:51)
[2019-08-03] MEDS ORDERED: MUPIROCIN 1 GM OIN.PF.APP NS SCH (21:00)
--- NOTE | 2019-08-03 23:00 | NUR ---
INCONTINENT OF URINE. CLEANED. HS CARE. PARTIAL LINEN CHANGE. LEFT BUTTOCKS WOUND DRSG SOILED. DRSG CHANGED PER WOUND CARE INSTRUCTIONS. MESHA WELL.
[2019-08-04 01:14] VITALS: BP_SYST 127
--- NOTE | 2019-08-04 03:00 | NUR ---
SOUNDLY ASLEEP. REPOSITIONED.
--- NOTE | 2019-08-04 05:00 | NUR ---
AM CARE. CLEANED.
--- NOTE | 2019-08-04 06:00 | NUR ---
SLEPT WELL MOST OF NOC. REMAINS IN GUARDED CONDITION.
[2019-08-04 06:23] LABS: CALCIUM 7.7 mg/dL (8.4-11.0); CREATININE 0.42 mg/dL (0.55-1.30); POTASSIUM 3.6 mmol/L (3.5-5.1)
[2019-08-04 06:31] LABS: BASOPHILS % (AUTO) 0.5 % (0.0-2.0); EOSINOPHILS # (AUTO) 0.6 K/uL (0.0-0.4); EOSINOPHILS % (AUTO) 9.9 % (0.0-4.0); HEMATOCRIT 24.3 % (36-54); HEMOGLOBIN 7.9 g/dL (14.0-18.0); LYMPHOCYTES # (AUTO) 1.3 K/uL (1.0-5.5); LYMPHOCYTES % (AUTO) 22.4 % (20.5-51.5); MEAN CORPUSCULAR HEMOGLOBIN 28 pg (27-31); MEAN CORPUSCULAR HGB CONC 33 % (32-36); MEAN CORPUSCULAR VOLUME 85 fL (79.0-98.0); MONOCYTES # (AUTO) 0.5 K/uL (0.0-1.0); MONOCYTES % (AUTO) 8.6 % (1.7-9.3); NEUTROPHILS # (AUTO) 3.5 K/uL (1.8-7.7); NEUTROPHILS % (AUTO) 58.6 % (40.0-70.0); PLATELET COUNT (AUTO) 266 K/uL (130-430); RED BLOOD CELL COUNT(AUTO) 2.85 MIL/uL (4.2-6.2); RED CELL DISTRIBUTION WIDTH 16.7 % (9.0-15.0); WHITE BLOOD COUNT (AUTO) 5.9 K/uL (4.8-10.8)
[2019-08-04 08:00] VITALS: BP_SYST 125
--- NOTE | 2019-08-04 08:00 | NUR ---
VISIT: AT BEDSIDE FOR ASSESSMENT OF PT, NEW ORDERS GIVEN, WILL CONT' TO MONITOR AND ASSESS.
--- NOTE | 2019-08-04 08:00 | NUR ---
ASSUMPTION OF CARE: RECEIVED PT A/A/OX 1, TO NAME, DX:FLUID VOLUME DEFICIT, R/T UPPER GI BLEED, VSS, BREATH SOUNDS ARE CLEAR, BREATHING UNLABORED, NO S/S OF DISTRESS, IV SITE INTACT, PATENT, NO REDNESS OR SWELLING, AFEBRILE, NO C/O PAIN, REORIENTED TO UNIT, CALL LIGHT PLACED WITHIN REACH, WILL CONT' TO MONITOR AND ASSESS.
[2019-08-04] MEDS ORDERED: MUPIROCIN 2% TOPICAL OINTMENT 22 GM NS SCH (09:00)
[2019-08-04] MEDS ORDERED: BALSAM PERU/CASTOR OIL 60 GM OINT...G. TP SCH (09:00)
--- NOTE | 2019-08-04 09:00 | NUR ---
DUAL RATE DEALER: MORNING MEDS GIVEN, PER ORDERED BY Maury, TOLERATED WELL, REPOSITIONED FOR COMFORT, CALL LIGHT PLACED WITHIN REACH, WILL CONT' TO MONITOR AND ASSESS.
[2019-08-04] MEDS: FAMOTIDINE 20 MG TABLET PO SCH (09:12)
[2019-08-04] MEDS: HALOPERIDOL 5 MG TABLET (HALDOL) PO SCH (09:12)
[2019-08-04] MEDS: PANTOPRAZOLE SODIUM 40 MG/VIAL (PROTONIX) IVP SCH (09:12)
[2019-08-04] MEDS: FERROUS SULFATE 325 MG TABLET.DR PO SCH (09:18)
[2019-08-04] MEDS: BENZTROPINE MESYLATE 1 MG TABLET PO SCH (09:18)
--- NOTE | 2019-08-04 12:00 | NUR ---
Discharge Planning: DCP faxed pt referral to [facility] (f [phone] p [phone]) patient accepted back to Rm 15[facility], transportation arranged with [facility] ([phone]) 3:30pm patient packet taken to nurse station nurse made aware.
[2019-08-04 12:07] VITALS: BP_SYST 134
[2019-08-04 15:15] VITALS: BP_SYST 127
--- NOTE | 2019-08-04 15:30 | NUR ---
DISCHARGE: PATIENT DISCHARGED TO [facility], IN STABLE CONDITION, TRANSPORTED VIA AMBULANCE, ENDORSEMENT GIVEN TO NURSE BANG PÉREZ, WILL CONT' WITH POC.
[2019-08-04 16:32] VITALS: BP_SYST 127
== END 2019-08-04 16:00 | DRG 377 ==
LOC: SED 10:12 → STU 13:15
PROVIDERS: ADMIT Internal Medicine; ATTEND Internal Medicine
PROC: 30233N1 Transfusion of Nonautologous Red Blood Cells into Peripheral Vein, Percutaneous Approach (ICD-10-PCS; principal; 2019-08-01)
DX: K92.0 Hematemesis (principal); E43 Unspecified severe protein-calorie malnutrition; F03.90 Unspecified dementia, unspecified severity, without behavioral disturbance, psychotic disturbance, mood disturbance, and anxiety; F20.9 Schizophrenia, unspecified; K21.0 Gastro-esophageal reflux disease with esophagitis; K44.9 Diaphragmatic hernia without obstruction or gangrene; D64.9 Anemia, unspecified; K57.90 Diverticulosis of intestine, part unspecified, without perforation or abscess without bleeding; K63.5 Polyp of colon; K64.9 Unspecified hemorrhoids; F32.9 Major depressive disorder, single episode, unspecified; F41.9 Anxiety disorder, unspecified; L89.159 Pressure ulcer of sacral region, unspecified stage; K21.9 Gastro-esophageal reflux disease without esophagitis; G89.4 Chronic pain syndrome; Z86.711 Personal history of pulmonary embolism; Z79.899 Other long term (current) drug therapy
CPT/HCPCS: 36415; 71045; 80048; 80053; 81003; 83605; 83690-TC; 83880; 84484; 85025; 85610-TC; 85730-TC; 86886; 86900; 86901; 86920; 87040-TC; 87081; 87086; 93005; 96361; 96374; 99291; C9113; G0378; J7030; J7040; P9021

== ENCOUNTER 2019-08-13 09:43 | Inpatient (IN) | payer OTHER, MEDICAID ==
[~2019-08-13] VITALS: Ht 154.9 cm; Wt 58.1 kg
[2019-08-13 09:45] VITALS: BP_SYST 131
[2019-08-13] MEDS ORDERED: NACL 0.9% 1,000 ML IV ONE (09:50)
[2019-08-13] MEDS ORDERED: ONDANSETRON HCL 4 MG/2 ML VIAL IVP ONE (10:00)
[2019-08-13 10:39] LABS: BASOPHILS % (AUTO) 0.2 % (0.0-2.0); EOSINOPHILS # (AUTO) 0.1 K/uL (0.0-0.4); EOSINOPHILS % (AUTO) 0.5 % (0.0-4.0); HEMATOCRIT 32.5 % (36-54); HEMOGLOBIN 10.6 g/dL (14.0-18.0); LYMPHOCYTES # (AUTO) 1.2 K/uL (1.0-5.5); LYMPHOCYTES % (AUTO) 9.7 % (20.5-51.5); MEAN CORPUSCULAR HEMOGLOBIN 27 pg (27-31); MEAN CORPUSCULAR HGB CONC 33 % (32-36); MEAN CORPUSCULAR VOLUME 84 fL (79.0-98.0); MONOCYTES # (AUTO) 0.5 K/uL (0.0-1.0); MONOCYTES % (AUTO) 4.3 % (1.7-9.3); NEUTROPHILS # (AUTO) 10.4 K/uL (1.8-7.7); NEUTROPHILS % (AUTO) 85.3 % (40.0-70.0); PLATELET COUNT (AUTO) 415 K/uL (130-430); RED BLOOD CELL COUNT(AUTO) 3.86 MIL/uL (4.2-6.2); RED CELL DISTRIBUTION WIDTH 16.7 % (9.0-15.0); WHITE BLOOD COUNT (AUTO) 12.1 K/uL (4.8-10.8)
[2019-08-13] MEDS ORDERED: CEL20 PO (10:41)
[2019-08-13] MEDS ORDERED: PEDI1TAB28 PO (10:41)
[2019-08-13] MEDS ORDERED: ZINC220T4 PO (10:41)
[2019-08-13] MEDS ORDERED: PRO40 PO (10:41)
[2019-08-13 10:48] LABS: CALCIUM 8.2 mg/dL (8.4-11.0); CREATININE 0.79 mg/dL (0.55-1.30); POTASSIUM 4.2 mmol/L (3.5-5.1)
[2019-08-13 10:55] LABS: ALBUMIN 2.7 g/dL (3.4-4.8); TOTAL BILIRUBIN 0.1 mg/dL (0.0-1.0)
[2019-08-13 14:33] LABS: BILIRUBIN,URINE NEGATIVE (NEGATIVE); BLOOD, URINE NEGATIVE (NEGATIVE); CLARITY/URINE CLEAR (CLEAR); COLOR,URINE YELLOW (YELLOW); GLUCOSE,URINE NEGATIVE (NEGATIVE); KETONES,URINE NEGATIVE (NEGATIVE); LEUKOCYTE ESTERASE ,URINE 1+ (NEGATIVE); NITRITE, URINE POSITIVE (NEGATIVE); PROTEIN URINE NEGATIVE (NEGATIVE); UROBILINOGEN,URINE 0.2 (0.2-1.0)
[2019-08-13 14:55] LABS: BACTERIA,URINE MODERATE /HPF (None Seen); MUCUS,URINE 1+ /LPF (None Seen); RBC,URINE 0-3 /HPF (0-3)
[2019-08-13] MEDS ORDERED: PANTOPRAZOLE SODIUM 40 MG/VIAL (PROTONIX) IVP ONE (17:00)
[2019-08-13] MEDS: NACL 0.9% 1,000 ML IV SCH (17:18)
[2019-08-13 18:24] VITALS: BP_SYST 117
[2019-08-13 19:20] VITALS: BP_SYST 115
[2019-08-14] MEDS: NACL 0.9% 1,000 ML IV SCH ×3 (00:14→15:39)
[2019-08-14 01:32] VITALS: BP_SYST 127
[2019-08-14 05:47] LABS: CREATININE 0.51 mg/dL (0.55-1.30); POTASSIUM 3.6 mmol/L (3.5-5.1)
[2019-08-14 08:02] LABS: BASOPHILS % (AUTO) 0.7 % (0.0-2.0); EOSINOPHILS # (AUTO) 0.4 K/uL (0.0-0.4); HEMATOCRIT 24.9 % (36-54); HEMOGLOBIN 8.1 g/dL (14.0-18.0); LYMPHOCYTES # (AUTO) 1.2 K/uL (1.0-5.5); LYMPHOCYTES % (AUTO) 19.1 % (20.5-51.5); MEAN CORPUSCULAR HEMOGLOBIN 27 pg (27-31); MEAN CORPUSCULAR HGB CONC 33 % (32-36); MEAN CORPUSCULAR VOLUME 84 fL (79.0-98.0); MONOCYTES # (AUTO) 0.4 K/uL (0.0-1.0); NEUTROPHILS # (AUTO) 4.4 K/uL (1.8-7.7); NEUTROPHILS % (AUTO) 68.2 % (40.0-70.0); PLATELET COUNT (AUTO) 308 K/uL (130-430); RED BLOOD CELL COUNT(AUTO) 2.99 MIL/uL (4.2-6.2); RED CELL DISTRIBUTION WIDTH 16.7 % (9.0-15.0); WHITE BLOOD COUNT (AUTO) 6.4 K/uL (4.8-10.8)
[2019-08-14] MEDS: BENZTROPINE MESYLATE 1 MG TABLET PO SCH ×2 (09:01→21:12)
[2019-08-14] MEDS: PANTOPRAZOLE SODIUM 40 MG/VIAL (PROTONIX) IVP SCH (09:01)
[2019-08-14 12:13] VITALS: BP_SYST 134
[2019-08-14] MEDS ORDERED: MINERAL OIL 30 ML UDC PO ONE (12:30)
[2019-08-14] MEDS ORDERED: POLYETHYLENE GLYCOL 3350, 17 GM/ POWD.PACK PO ONE (12:30)
[2019-08-14] MEDS: LEVOFLOXACIN 500 MG/D5W 100 ML IV SCH (13:35)
[2019-08-14 17:03] VITALS: BP_SYST 113
[2019-08-14 20:00] VITALS: BP_SYST 138
[2019-08-14 23:37] VITALS: BP_SYST 134
[2019-08-15] MEDS: NACL 0.9% 1,000 ML IV SCH ×4 (00:34→22:13)
[2019-08-15 07:24] LABS: BASOPHILS % (AUTO) 0.9 % (0.0-2.0); EOSINOPHILS # (AUTO) 0.2 K/uL (0.0-0.4); HEMOGLOBIN 8.5 g/dL (14.0-18.0); LYMPHOCYTES # (AUTO) 1.1 K/uL (1.0-5.5); LYMPHOCYTES % (AUTO) 20.1 % (20.5-51.5); MEAN CORPUSCULAR HEMOGLOBIN 27 pg (27-31); MEAN CORPUSCULAR HGB CONC 33 % (32-36); MEAN CORPUSCULAR VOLUME 83 fL (79.0-98.0); MONOCYTES # (AUTO) 0.5 K/uL (0.0-1.0); MONOCYTES % (AUTO) 10.2 % (1.7-9.3); NEUTROPHILS # (AUTO) 3.4 K/uL (1.8-7.7); NEUTROPHILS % (AUTO) 64.8 % (40.0-70.0); PLATELET COUNT (AUTO) 334 K/uL (130-430); RED BLOOD CELL COUNT(AUTO) 3.13 MIL/uL (4.2-6.2); RED CELL DISTRIBUTION WIDTH 16.3 % (9.0-15.0); WHITE BLOOD COUNT (AUTO) 5.3 K/uL (4.8-10.8)
[2019-08-15 07:47] LABS: ALBUMIN 2.1 g/dL (3.4-4.8); CALCIUM 7.6 mg/dL (8.4-11.0); CREATININE 0.49 mg/dL (0.55-1.30); POTASSIUM 3.5 mmol/L (3.5-5.1); TOTAL BILIRUBIN 0.1 mg/dL (0.0-1.0)
[2019-08-15 08:00] VITALS: BP_SYST 135
[2019-08-15] MEDS: BENZTROPINE MESYLATE 1 MG TABLET PO SCH ×2 (08:29→22:13)
[2019-08-15] MEDS: PANTOPRAZOLE SODIUM 40 MG/VIAL (PROTONIX) IVP SCH (08:29)
[2019-08-15] MEDS: POLYETHYLENE GLYCOL 3350, 17 GM/ POWD.PACK PO SCH (08:30)
[2019-08-15] MEDS ORDERED: fentaNYL CITRATE/PF 100 MCG/2 ML AMP ONE (11:28)
[2019-08-15] MEDS ORDERED: SIMETHICONE 40 MG/0.6 ML ML ONE (11:29)
[2019-08-15] MEDS: MIDAZOLAM HCL 5 MG/5 ML VIAL ONE ×2 (12:39→12:41)
[2019-08-15 13:25] VITALS: BP_SYST 136
[2019-08-15] MEDS: LEVOFLOXACIN 500 MG/D5W 100 ML IV SCH (14:06)
[2019-08-15 16:45] VITALS: BP_SYST 130
[2019-08-15 20:00] VITALS: BP_SYST 130
[2019-08-15] MEDS: MUPIROCIN 2% TOPICAL OINTMENT 22 GM NS SCH (22:13)
[2019-08-16 00:51] VITALS: BP_SYST 139
[2019-08-16] MEDS: NACL 0.9% 1,000 ML IV SCH ×3 (05:27→23:26)
[2019-08-16 08:00] VITALS: BP_SYST 110
[2019-08-16] MEDS: PANTOPRAZOLE SODIUM 40 MG/VIAL (PROTONIX) IVP SCH (10:21)
[2019-08-16] MEDS: MUPIROCIN 2% TOPICAL OINTMENT 22 GM NS SCH ×2 (10:21→21:08)
[2019-08-16] MEDS: BENZTROPINE MESYLATE 1 MG TABLET PO SCH ×2 (10:21→21:08)
[2019-08-16] MEDS: POLYETHYLENE GLYCOL 3350, 17 GM/ POWD.PACK PO SCH (10:22)
[2019-08-16] MEDS: BALSAM PERU/CASTOR OIL 60 GM OINT...G. TP SCH (10:22)
[2019-08-16 12:54] VITALS: BP_SYST 122
[2019-08-16] MEDS: LEVOFLOXACIN 500 MG/D5W 100 ML IV SCH (14:05)
[2019-08-16 16:36] VITALS: BP_SYST 114
[2019-08-16] MEDS: VANCOMYCIN HCL 500 MG in NS 100 ML IV SCH (18:10)
[2019-08-16 19:50] LABS: CALCIUM 7.7 mg/dL (8.4-11.0); CREATININE 0.51 mg/dL (0.55-1.30); POTASSIUM 3.7 mmol/L (3.5-5.1)
[2019-08-16 20:00] VITALS: BP_SYST 123
[2019-08-17 01:59] VITALS: BP_SYST 138
[2019-08-17] MEDS: VANCOMYCIN HCL 500 MG in NS 100 ML IV SCH ×2 (05:03→17:46)
[2019-08-17 08:00] VITALS: BP_SYST 142
[2019-08-17 09:14] LABS: BASOPHILS % (AUTO) 0.7 % (0.0-2.0); EOSINOPHILS # (AUTO) 0.2 K/uL (0.0-0.4); EOSINOPHILS % (AUTO) 2.5 % (0.0-4.0); HEMATOCRIT 30.3 % (36-54); HEMOGLOBIN 9.8 g/dL (14.0-18.0); LYMPHOCYTES # (AUTO) 0.9 K/uL (1.0-5.5); LYMPHOCYTES % (AUTO) 13.6 % (20.5-51.5); MEAN CORPUSCULAR HEMOGLOBIN 27 pg (27-31); MEAN CORPUSCULAR HGB CONC 32 % (32-36); MEAN CORPUSCULAR VOLUME 83 fL (79.0-98.0); MONOCYTES # (AUTO) 0.6 K/uL (0.0-1.0); MONOCYTES % (AUTO) 9.7 % (1.7-9.3); NEUTROPHILS # (AUTO) 4.6 K/uL (1.8-7.7); NEUTROPHILS % (AUTO) 73.5 % (40.0-70.0); PLATELET COUNT (AUTO) 320 K/uL (130-430); RED BLOOD CELL COUNT(AUTO) 3.66 MIL/uL (4.2-6.2); RED CELL DISTRIBUTION WIDTH 16.1 % (9.0-15.0); WHITE BLOOD COUNT (AUTO) 6.3 K/uL (4.8-10.8)
[2019-08-17] MEDS: MUPIROCIN 2% TOPICAL OINTMENT 22 GM NS SCH ×2 (10:01→20:27)
[2019-08-17] MEDS: POLYETHYLENE GLYCOL 3350, 17 GM/ POWD.PACK PO SCH (10:01)
[2019-08-17] MEDS: PANTOPRAZOLE SODIUM 40 MG/VIAL (PROTONIX) IVP SCH (10:01)
[2019-08-17] MEDS: NACL 0.9% 1,000 ML IV SCH ×2 (10:01→17:47)
[2019-08-17] MEDS: BALSAM PERU/CASTOR OIL 60 GM OINT...G. TP SCH (10:01)
[2019-08-17] MEDS: BENZTROPINE MESYLATE 1 MG TABLET PO SCH ×2 (10:02→20:26)
[2019-08-17 12:30] VITALS: BP_SYST 129; BP_SYST 149
[2019-08-17] MEDS: LEVOFLOXACIN 500 MG/D5W 100 ML IV SCH (13:27)
[2019-08-17 16:24] VITALS: BP_SYST 110
[2019-08-17 20:00] VITALS: BP_SYST 128
[2019-08-18 02:19] VITALS: BP_SYST 131
[2019-08-18] MEDS: NACL 0.9% 1,000 ML IV SCH ×4 (03:30→22:13)
[2019-08-18] MEDS: VANCOMYCIN HCL 500 MG in NS 100 ML IV SCH ×3 (06:00→21:30)
[2019-08-18 08:00] VITALS: BP_SYST 126
[2019-08-18] MEDS: BENZTROPINE MESYLATE 1 MG TABLET PO SCH ×2 (08:50→20:12)
[2019-08-18] MEDS: MUPIROCIN 2% TOPICAL OINTMENT 22 GM NS SCH ×2 (08:51→20:13)
[2019-08-18] MEDS: POLYETHYLENE GLYCOL 3350, 17 GM/ POWD.PACK PO SCH (08:51)
[2019-08-18] MEDS: PANTOPRAZOLE SODIUM 40 MG/VIAL (PROTONIX) IVP SCH (10:15)
[2019-08-18] MEDS: BALSAM PERU/CASTOR OIL 60 GM OINT...G. TP SCH (10:18)
[2019-08-18 12:00] VITALS: BP_SYST 122
[2019-08-18] MEDS: LEVOFLOXACIN 500 MG/D5W 100 ML IV SCH (14:18)
[2019-08-18 16:00] VITALS: BP_SYST 122
[2019-08-18 20:00] VITALS: BP_SYST 125
[2019-08-19 01:36] VITALS: BP_SYST 124
[2019-08-19] MEDS: VANCOMYCIN HCL 500 MG in NS 100 ML IV SCH (05:13)
[2019-08-19] MEDS: NACL 0.9% 1,000 ML IV SCH ×2 (06:33→16:15)
[2019-08-19 07:16] LABS: ALBUMIN 2.3 g/dL (3.4-4.8); CALCIUM 7.6 mg/dL (8.4-11.0); CREATININE 0.46 mg/dL (0.55-1.30); POTASSIUM 3.6 mmol/L (3.5-5.1); TOTAL BILIRUBIN 0.1 mg/dL (0.0-1.0)
[2019-08-19] MEDS: POLYETHYLENE GLYCOL 3350, 17 GM/ POWD.PACK PO SCH (08:53)
[2019-08-19] MEDS: BENZTROPINE MESYLATE 1 MG TABLET PO SCH (08:53)
[2019-08-19] MEDS: BALSAM PERU/CASTOR OIL 60 GM OINT...G. TP SCH (08:54)
[2019-08-19] MEDS: MUPIROCIN 2% TOPICAL OINTMENT 22 GM NS SCH (09:00)
[2019-08-19] MEDS: PANTOPRAZOLE SODIUM 40 MG/VIAL (PROTONIX) IVP SCH (09:00)
[2019-08-19 11:31] LABS: BASOPHILS % (AUTO) 0.4 % (0.0-2.0); EOSINOPHILS # (AUTO) 0.1 K/uL (0.0-0.4); EOSINOPHILS % (AUTO) 2.5 % (0.0-4.0); HEMATOCRIT 27.7 % (36-54); LYMPHOCYTES # (AUTO) 0.8 K/uL (1.0-5.5); MEAN CORPUSCULAR HEMOGLOBIN 27 pg (27-31); MEAN CORPUSCULAR HGB CONC 32 % (32-36); MEAN CORPUSCULAR VOLUME 83 fL (79.0-98.0); MONOCYTES # (AUTO) 0.5 K/uL (0.0-1.0); MONOCYTES % (AUTO) 9.7 % (1.7-9.3); NEUTROPHILS # (AUTO) 3.3 K/uL (1.8-7.7); NEUTROPHILS % (AUTO) 69.4 % (40.0-70.0); PLATELET COUNT (AUTO) 269 K/uL (130-430); RED BLOOD CELL COUNT(AUTO) 3.35 MIL/uL (4.2-6.2); RED CELL DISTRIBUTION WIDTH 16.1 % (9.0-15.0); WHITE BLOOD COUNT (AUTO) 4.7 K/uL (4.8-10.8)
[2019-08-19 12:30] VITALS: BP_SYST 100
[2019-08-19] MEDS: LEVOFLOXACIN 500 MG/D5W 100 ML IV SCH (13:37)
[2019-08-19] MEDS ORDERED: VANCOMYCIN HCL 750 MG in NS 250 ML IV ONE (14:30)
[2019-08-19 16:32] VITALS: BP_SYST 126
[2019-08-19] MEDS ORDERED: Vancomycin IVPB (19:01)
[2019-08-19 20:00] VITALS: BP_SYST 130
[2019-08-19] MEDS ORDERED: VANCOMYCIN HCL 750 MG in NS 250 ML IV SCH (22:00)
== END 2019-08-19 22:35 | disposition short-term general hospital (02) | DRG 871 ==
LOC: SED 09:43 → STU 14:55 → SMU 08-15 13:52
PROVIDERS: ADMIT Internal Medicine; ATTEND Internal Medicine
PROC: 0DB68ZZ Excision of Stomach, Via Natural or Artificial Opening Endoscopic (ICD-10-PCS; principal; 2019-08-15 12:30)
DX: A41.9 Sepsis, unspecified organism (principal); J69.0 Pneumonitis due to inhalation of food and vomit; L89.324 Pressure ulcer of left buttock, stage 4; L89.314 Pressure ulcer of right buttock, stage 4; E43 Unspecified severe protein-calorie malnutrition; N39.0 Urinary tract infection, site not specified; K56.49 Other impaction of intestine; M86.8X8 Other osteomyelitis, other site; K44.9 Diaphragmatic hernia without obstruction or gangrene; D64.9 Anemia, unspecified; E66.9 Obesity, unspecified; F02.80 Dementia in other diseases classified elsewhere, unspecified severity, without behavioral disturbance, psychotic disturbance, mood disturbance, and anxiety; F20.9 Schizophrenia, unspecified; K31.7 Polyp of stomach and duodenum; K21.9 Gastro-esophageal reflux disease without esophagitis; K56.41 Fecal impaction; Z87.19 Personal history of other diseases of the digestive system; Z68.24 Body mass index [BMI] 24.0-24.9, adult; Z79.899 Other long term (current) drug therapy; Z87.81 Personal history of (healed) traumatic fracture
CPT/HCPCS: 36415; 43239; 71045; 80048; 80053; 80202-TC; 81000-TC; 82550-TC; 83605; 83690-TC; 84484; 85025; 85610-TC; 85730-TC; 87040-TC; 87070-TC; 87081; 87086; 87186-TC; 88305; 88312; 88313; 93005; 96361; 96374; 99285; C9113; G0378; J1956; J2250; J2405; J3010; J3370; J7030; J7050

== ENCOUNTER 2019-09-01 11:38 | Inpatient (IN) | payer OTHER, MEDICAID ==
[~2019-09-01] VITALS: Ht 177.8 cm; Wt 57.8 kg
[~2019-09-01 11:38] MED LIST changes: +CEL20 PO; -ESCI20TA PO; +PEDI1TAB28 PO; +PRO40 PO; +Vancomycin IVPB; +ZINC220T4 PO
--- NOTE | 2019-09-01 11:38 | NUR ---
BROUGHT IN BY BLS FIRST RESCUE, PLACED IN BED #7 AND TRIAGED. REPORT GIVEN TO TOSHIA
[2019-09-01 11:40] VITALS: BP_SYST 111
--- NOTE | 2019-09-01 11:40 | NUR ---
pt brought to ER after x2 episodes of vomiting brown in color. Pt is AO4 on electronic device monitor, no distress noted at this time
--- NOTE | 2019-09-01 11:45 | NUR ---
ER at bedside examining patient.
[2019-09-01] MEDS ORDERED: NACL 0.9% 1,000 ML IV ONE (11:48)
[2019-09-01] MEDS ORDERED: NS 1000 ML IV.SOLN IV ONE (12:00)
[2019-09-01] MEDS ORDERED: PANTOPRAZOLE SODIUM 40 MG/VIAL (PROTONIX) IVP ONE (12:00)
[2019-09-01] MEDS ORDERED: ONDANSETRON HCL 4 MG/2 ML VIAL IVP ONE (12:00)
[2019-09-01] MEDS ORDERED: cefTRIAXone 1 GM IVPB PREMIX 50 ML IV ONE (12:00)
[2019-09-01 12:34] LABS: BASOPHILS % (AUTO) 0.2 % (0.0-2.0); EOSINOPHILS % (AUTO) 0.4 % (0.0-4.0); HEMATOCRIT 22.9 % (36-54); HEMOGLOBIN 7.3 g/dL (14.0-18.0); LYMPHOCYTES # (AUTO) 1.2 K/uL (1.0-5.5); LYMPHOCYTES % (AUTO) 10.5 % (20.5-51.5); MEAN CORPUSCULAR HEMOGLOBIN 26 pg (27-31); MEAN CORPUSCULAR HGB CONC 32 % (32-36); MEAN CORPUSCULAR VOLUME 81 fL (79.0-98.0); MONOCYTES # (AUTO) 0.5 K/uL (0.0-1.0); MONOCYTES % (AUTO) 4.6 % (1.7-9.3); NEUTROPHILS # (AUTO) 9.8 K/uL (1.8-7.7); NEUTROPHILS % (AUTO) 84.3 % (40.0-70.0); PLATELET COUNT (AUTO) 374 K/uL (130-430); RED BLOOD CELL COUNT(AUTO) 2.84 MIL/uL (4.2-6.2); RED CELL DISTRIBUTION WIDTH 17.1 % (9.0-15.0); WHITE BLOOD COUNT (AUTO) 11.7 K/uL (4.8-10.8)
--- NOTE | 2019-09-01 12:40 | NUR ---
EKG performed at by Doni. Physician given copy of EKG for review.
[2019-09-01 12:48] LABS: BILIRUBIN,URINE NEGATIVE (NEGATIVE); BLOOD, URINE NEGATIVE (NEGATIVE); CLARITY/URINE CLEAR (CLEAR); COLOR,URINE YELLOW (YELLOW); GLUCOSE,URINE NEGATIVE (NEGATIVE); KETONES,URINE NEGATIVE (NEGATIVE); LEUKOCYTE ESTERASE ,URINE NEGATIVE (NEGATIVE); NITRITE, URINE NEGATIVE (NEGATIVE); PROTEIN URINE NEGATIVE (NEGATIVE); UROBILINOGEN,URINE 0.2 (0.2-1.0)
[2019-09-01 12:50] LABS: CALCIUM 8.2 mg/dL (8.4-11.0); CREATININE 0.66 mg/dL (0.55-1.30); POTASSIUM 3.9 mmol/L (3.5-5.1)
[2019-09-01 12:55] LABS: PROTHROMBIN TIME 10.1 SECS (9.5-12.5)
[2019-09-01 12:56] LABS: ALBUMIN 2.5 g/dL (3.4-4.8); TOTAL BILIRUBIN 0.2 mg/dL (0.0-1.0)
[2019-09-01] MEDS ORDERED: [UNRECOGNIZED DRUG - CODE] PO (14:19)
[2019-09-01] MEDS ORDERED: CEL20 PO (14:19)
[2019-09-01] MEDS ORDERED: QUET400T PO (14:19)
[2019-09-01] MEDS ORDERED: ZINC220T4 PO (14:19)
[2019-09-01] MEDS ORDERED: ASCO500T20 PO (14:19)
[2019-09-01] MEDS ORDERED: FAMO40TA7 PO (14:19)
[2019-09-01] MEDS ORDERED: BENZ1TAB76 PO (14:19)
[2019-09-01] MEDS ORDERED: LORA1TAB PO (14:19)
[2019-09-01] MEDS ORDERED: PANT20TA3 PO (14:19)
[2019-09-01] MEDS ORDERED: FER300L PO (14:19)
--- NOTE | 2019-09-01 14:50 | NUR ---
Pt VSS resting in bed comfortably no discomfort
--- NOTE | 2019-09-01 16:30 | NUR ---
PT RESTING IN BED ON LINUX SERVER ENGINEER, NO S/S OF DISTRESS PAIN 0/10
--- NOTE | 2019-09-01 17:25 | NUR ---
Patient will be admitted to care of Dr Glover. Admitted to Tele unit. Will go to room 114A. Belongings list completed. Complete and up to date summary report printed. SBAR report to be given at bedside with opportunity for questions.
--- NOTE | 2019-09-01 17:27 | NUR ---
CONSULTATION PAGED/CALLED Reason for Consultation: [] GI BLEED Person Who was Notified: [] DORINA Consulting Physician: [] DR BLAKE MUSIC EDUCATION DIRECTOR FOR DR HARRIS Occupational Therapy Professor Specialty: [] GI Ordering Physician: [] DR DUEÑAS
[2019-09-01 18:00] VITALS: BP_SYST 108
--- NOTE | 2019-09-01 18:00 | NUR ---
INITIAL NOTE PT BROUGHT VIA GURNEY ACCOMPANIED VIA ER NURSE. PT AWAKE, AOX2, DENIES ANY PAIN OR DISCOMFORT. VSS.
[2019-09-01 19:30] VITALS: BP_SYST 106
--- NOTE | 2019-09-01 19:30 | NUR ---
INITIAL NOTES Patient is resting, alert. IV site patent, dressings c/d/i. Will begin IVF. Call light within reach, bed alarm on, bed at lowest position. Will continue to monitor.
--- NOTE | 2019-09-01 19:30 | NUR ---
CLOSING NOTE BEDSIDE REPORT GIVEN TO RECEIVING RNCHAGO. PT AWAKE, DENIES ANY DISCOMFORT OR EMESIS EPISODE. ISOLATION PRECAUTIONS IN PLACE. CALL LIGHT WITHIN REACH, BED IN LOW AND LOCKED POSITION WITH BED ALARM ON.
--- NOTE | 2019-09-01 19:55 | NUR ---
SPOKE TO DR. MEEK RECEIVED ORDERS OF CONSENT FOR EGD IN THE MORNING, CBC, CMP, PT/PTT in the morning.
[2019-09-01 20:00] VITALS: BP_SYST 108
--- NOTE | 2019-09-01 20:12 | NUR ---
SPOKE TO DR. BLAKE, DR. BLAKE SAYS THAT PATIENT WILL NOT NEED AN EGD, PATIENT HAS HAD 3 EGD'S WITHIN THE LAST MONTH AND HAS BEEN NEGATIVE. NEW ORDERS FOR 1 UNIT OF BLOOD RECEIVED.
[2019-09-01] MEDS: NACL 0.9% 1,000 ML IV SCH (20:36)
--- NOTE | 2019-09-01 21:19 | NUR ---
SPOKE TO MR. BELÉN BARRY, BROTHER TO RECEIVE CONSENT FOR 1 UNIT OF BLOOD TRANSFUSION.
[2019-09-01] MEDS: PANTOPRAZOLE SODIUM 40 MG/VIAL (PROTONIX) IVP SCH (22:44)
--- NOTE | 2019-09-02 01:40 | NUR ---
BT INITIATION: Consent signed per Santy Mayer, brother, agreeing to administration of blood. Blood has been typed and crossmatched. Blood sent from blood bank. Information on unit of blood checked against patient wristband at bedside by two nurses. All information matched. Patient or responsible alliance party informed of potential complications associated with blood transfusion. Informed of possible transfusion reaction symptoms. Aware of need to notify nurse at once of itching, shortness of breath, flushing, feeling of impending doom, or other symptoms not previously present. Vital signs taken within 5 minutes prior to initiation of transfusion. RN will remain with patient for first 15 minutes of transfusion at which time vital signs will be re-assessed. IV site left wrist without any signs of infiltration.
--- NOTE | 2019-09-02 02:04 | NUR ---
Vital signs after 15 minutes 99/55 pulse 80, no signs of adverse reaction to the blood seen on patient. Patient is alert, resting. Feet elevated, Call light within reach, bed alarm on, and bed at lowest position. Will continue to monitor.
[2019-09-02 02:34] VITALS: BP_SYST 101
[2019-09-02] MEDS: NACL 0.9% 1,000 ML IV SCH ×2 (03:20→17:00)
--- NOTE | 2019-09-02 04:15 | NUR ---
POST BLOOD TRANSFUSION Patient is resting, eyes closed, vitals stable, no signs of distress, will continue to monitor.
--- NOTE | 2019-09-02 06:04 | NUR ---
CLOSING NOTES Patient is resting, eyes closed. Rise and fall of chest observed. No signs of acute respiratory distress observed. IVF running, dressings c/d/i. Call light within reach, bed alarm on, bed at lowest position, NPO throughout the night. All needs met throughout shift. Will endorse care to oncoming shift.
[2019-09-02 08:00] VITALS: BP_SYST 110
[2019-09-02] MEDS ORDERED: PANTOPRAZOLE SODIUM 40 MG/VIAL (PROTONIX) IVP SCH (09:00)
[2019-09-02 09:21] LABS: PROTHROMBIN TIME 10.3 SECS (9.5-12.5)
[2019-09-02 09:33] LABS: ALBUMIN 2.2 g/dL (3.4-4.8); CALCIUM 7.5 mg/dL (8.4-11.0); CREATININE 0.6 mg/dL (0.55-1.30)
[2019-09-02 09:38] LABS: TOTAL BILIRUBIN 0.5 mg/dL (0.0-1.0)
[2019-09-02] MEDS: LUBIPROSTONE 24 MCG CAPSULE PO SCH ×2 (10:12→20:55)
[2019-09-02] MEDS: PANTOPRAZOLE SODIUM 40 MG/VIAL (PROTONIX) IVP SCH ×2 (10:12→20:55)
--- NOTE | 2019-09-02 10:24 | NUR ---
Nutrition Update Andres Scale 14 noted. Pt admitted for GI bleed. Diet: clear liquid BMI: 18.3 kg/m2 RD to follow per nutrition care standards.
[2019-09-02 10:36] LABS: BASOPHILS % (AUTO) 0.7 % (0.0-2.0); EOSINOPHILS # (AUTO) 0.2 K/uL (0.0-0.4); EOSINOPHILS % (AUTO) 3.3 % (0.0-4.0); HEMATOCRIT 22.1 % (36-54); HEMOGLOBIN 7.3 g/dL (14.0-18.0); LYMPHOCYTES # (AUTO) 1.1 K/uL (1.0-5.5); LYMPHOCYTES % (AUTO) 16.8 % (20.5-51.5); MEAN CORPUSCULAR HEMOGLOBIN 27 pg (27-31); MEAN CORPUSCULAR HGB CONC 33 % (32-36); MEAN CORPUSCULAR VOLUME 82 fL (79.0-98.0); MONOCYTES # (AUTO) 0.4 K/uL (0.0-1.0); MONOCYTES % (AUTO) 5.3 % (1.7-9.3); NEUTROPHILS % (AUTO) 73.9 % (40.0-70.0); PLATELET COUNT (AUTO) 277 K/uL (130-430); RED BLOOD CELL COUNT(AUTO) 2.68 MIL/uL (4.2-6.2); RED CELL DISTRIBUTION WIDTH 16.6 % (9.0-15.0); WHITE BLOOD COUNT (AUTO) 6.7 K/uL (4.8-10.8)
[2019-09-02 11:20] VITALS: BP_SYST 110
[2019-09-02 15:49] VITALS: BP_SYST 112
--- NOTE | 2019-09-02 16:54 | NUR ---
WOUND EVALUATION: Wound Consult received from Dr. Glover. Thank you, Dr. Glover, for the consult. Patient received in a John Bed with an IsoFlex SAM mattress, low air-loss therapy was initiated, awake, alert, confused, patient started yelling and would help turn for wound assessment, but said nothing was wrong. Patient is unable to turn in bed independently. Andres Score is a 14. Past Medical History: Schizophrenia, Cognitive Communication Deficit, Dementia, Hypotension, PE/DVT, GERD, history of falls, Depression, Anxiety, Chronic Pain Syndrome, Anemia, Dysphagia and Pressure ulcers. Recent Labs: WBC 6.7, RBC 2.68, hemoglobin 7.3, hematocrit 22.1, chloride 108, calcium 7.5, serum total protein 5.3, albumin 2.2, PTT 21.6. Microbiology: Blood culture results 2 in progress. Urine culture results negative. MRSA screen results in progress. Intrinsic factors that delay wound healing: Anemia, Hypoalbuminemia. Extrinsic factors that delay wound healing: Decreased mobility. Wound Assessment: 1. Left Buttock near Ischium: Stage IV pressure ulcer, present on admission. Site has 40% yellow slough, 60% red tissue. No odor, small yellow purulent drainage. Periwound has blanchable erythema and scar tissue. Undermining present from 1-4 o'clock (0.7 cm), Tunnel present at 10 o'clock (2.3 cm). Bone is palpable. Wound measures 3.0 cm x 4.0 cm x 2.0 cm. Recommend: Cleanse wound with normal saline. Apply moisture barrier cream to jocye-wound. Apply Venelex ointment to wound bed. Pack wound with 1/4 inch iodoform packing strip. Cover with foam dressing. Perform wound care daily, and as needed for dressing soiling or dislodgement. 2. Right Buttock near Ischium: Stage IV pressure ulcer, present on admission. Site has 70% red tissue, 30% yellow slough. No odor, small yellow purulent drainage. Periwound has blanchable erythema and scar tissue. Undermining present from 2-7 o'clock (0.5 cm at 2 o'clock; 1.5 cm at 3 o'clock; 0.5 cm at 7 o'clock;). Wound measures 1.4 cm x 2.4 cm x 1.6 cm. Recommend: Cleanse wound with normal saline. Apply moisture barrier to joyce-wound. Apply Venelex ointment to wound bed. Pack wound with 1/4 inch iodoform packing strip. Cover with foam dressing. Perform wound care daily, and as needed for dressing soiling or dislodgement. 3. Gluteal Sulcus: Scar tissue, present on admission. Recommend: Cleanse involved area with mild soap and water. Pat dry. Apply moisture barrier cream to involved area. Cover with Sacral foam dressing. Perform site care daily, and as needed for dressing soiling or dislodgment. 4. Right Olecranon: Unstageable pressure ulcer, present on admission. Wound bed has 90% yellow eschar, 10% white eschar. No odor, no drainage. Periwound intact. Wound measures 1.0 cm x 0.7 cm. Recommend: Cleanse wound with normal saline. Apply moisture barrier cream to joyce-wound. Apply Venelex ointment to wound bed. Cover with foam dressing. Perform wound care daily, and as needed for dressing soiling or dislodgement. Also recommend: Encourage and assist patient with repositioning [id number] only every [address] one pillow underneath lower back and one pillow underneath lower extremities (hand should freely slide underneath buttock/Sacral areas) bilaterally. Place an additional pillow underneath one side of noble when turning patient. Off-load pressure areas with pillows for pressure re-distribution. Offload, elevate and float bilateral heels with one pillow lengthwise under each extremity at all times. Perform skin care and monitor skin integrity Q shift. Use moisture barrier cream on buttocks and other moisture susceptible areas QID and as needed for soiling. Maintain patient on a low air-loss mattress.
[2019-09-02 20:00] VITALS: BP_SYST 142
--- NOTE | 2019-09-02 22:13 | NUR ---
Patient in bed. No acute distress noted. No complaint of pain or discomfort. Will continue to monitor.
[2019-09-03] MEDS: NACL 0.9% 1,000 ML IV SCH ×2 (05:44→23:52)
--- NOTE | 2019-09-03 06:24 | NUR ---
Patient's assessment unchanged.
[2019-09-03 08:00] VITALS: BP_SYST 114
[2019-09-03] MEDS: LUBIPROSTONE 24 MCG CAPSULE PO SCH ×2 (09:33→22:31)
[2019-09-03] MEDS: PANTOPRAZOLE SODIUM 40 MG/VIAL (PROTONIX) IVP SCH (09:33)
--- NOTE | 2019-09-03 12:14 | NUR ---
CONSULTATION PAGED REASON FOR CONSULTATION:HX OF BILATERAL WOUND SACRAL WOUND INFECTION WAS CONSULT CALLED?Y PERSON WHO WAS NOTIFIED:BILLY CONSULTING PHYSICIAN:DESI MOREAU VISION MIXER SPECIALTY:ID VISION MIXER PHONE NUMBER:[phone] REQUESTING PHYSICIAN:BANDAR ÁLVAREZ NP
[2019-09-03] MEDS ORDERED: CITALOPRAM HYDROBROMIDE 20 MG TABLET PO ONE (12:15)
[2019-09-03] MEDS ORDERED: LORazepam 2 MG/ML VIAL IVP PRN (12:15)
--- NOTE | 2019-09-03 12:20 | NUR ---
CONSULTATION PAGED REASON FOR CONSULTATION:AGITATION WAS CONSULT CALLED?Y PERSON WHO WAS NOTIFIED:BILLY CONSULTING PHYSICIAN:ADAMS DAVALOS ( SCOURING PADS SUPERVISOR) RAND TACKER SPECIALTY:PSYCH RAND TACKER PHONE NUMBER:[phone] REQUESTING PHYSICIAN:ZHAO BILLS
[2019-09-03 12:54] VITALS: BP_SYST 138
[2019-09-03 16:19] VITALS: BP_SYST 129
--- NOTE | 2019-09-03 17:08 | NUR ---
Nutrition Assessment (short note d/t high patient load) A - RD reviewed pertinent nutrition-related info via EMR (physician notes/nursing notes/labs/meds/nursing care trends/care activity). Admission Dx: GI bleed PMH: dementia, schizophrenia, anxiety, MRSA, stage 4 pressure ulcer, GERD, osteomyelitis per physician notes Current Diet Order/Nutrition Support: Clear liquid x1 day Ht: 5'10"/70" Wt: 128#/58 kg IBW: 166#/75 kg %IBW: 77% UBW: 127#/57 kg %UBW: 101% BMI: 18.3 kg/m2 (underweight, at risk for malnutrition) Subjective Info: Pt seen high risk d/t BMI less than 18.5 kg/m2, Nutrition Consult for low isauro score, and RD Notification for unhealed wound. Pt was seen resting in bed, unable to clearly respond to RD verbal interview questions. Pt reported good appetite and use of One-A-Day MVI. Pt was able to verify anthropometrics. Per EMR, plans for psych and ID consults. Per EMR, PO intake records indicate 67% average x3 meals. Security Systems Specialist note 09/02/19 noted -- pt has multiple pressure ulcers and has increase nutritional needs for wound healing ESTIMATED NUTRITIONAL NEEDS CALORIES/DAY: 3488-5151 kcal/day (30-35 kcal/kg CBW for wound healing, wt gain) PROTEIN/DAY: 73-87 gm/day (1.25-1.5 gm/kg CBW for wound healing) FLUID/DAY: 1.7-2 L/day (1 ml/kcal/day for maintenance) D - Increased nutritional needs related to metabolic demands as evidenced by estimated nutritional requirements for wound healing. I - Recommend clear liquid diet w/ Christian BID (Ensure Clear TID comes standard w/ clear liquid diet, and provides (w/ Christian BID) ~900 kcal/day, ~29 gm protein/day) M - Monitor advancement of diet, appetite, and PO intakes w/ goal of pt meeting at least 75% of estimated nutritional needs, labs trending WNL, normal GI function, and skin integrity/wt maintenance E - High risk; RD to F/U within 2-3 days
--- NOTE | 2019-09-03 17:14 | NUR ---
Dietitian Recommendations * Recommend clear liquid diet w/ Christian BID (Ensure Clear TID comes standard w/ clear liquid diet, and provides (w/ Christian BID) ~900 kcal/day, ~29 gm protein/day) LP, RD Please refer to Nutrition Assessment for details.
[2019-09-03] MEDS ORDERED: PANTOPRAZOLE SODIUM 40 MG TAB PO SCH (21:00)
[2019-09-03] MEDS: BENZTROPINE MESYLATE 1 MG TABLET PO SCH (22:31)
[2019-09-03] MEDS: LORazepam 1 MG TABLET PO SCH (22:32)
[2019-09-03] MEDS: QUEtiapine FUMARATE 200 MG TAB.SR.24H PO SCH (22:32)
[2019-09-03] MEDS: BALSAM PERU/CASTOR OIL 60 GM OINT...G. TP SCH (22:32)
[2019-09-04 03:00] VITALS: BP_SYST 129
--- NOTE | 2019-09-04 04:04 | NUR ---
CONSULTATION PAGED/CALLED Reason for Consultation: SUICIAL THOUGHTS W/O PLAN Person Who was Notified: BRIDGETTE Consulting Physician: /DR.CRUZ BRYANT Avionics System Engineer Specialty: PSYCH Ordering Physician: Addendum: 09/04/19 at 0407 by Jazmyn Bradley MI/ ERROR* WRONG PATIENT
--- NOTE | 2019-09-04 06:11 | NUR ---
Patient slept the entire night. No acute distress noted. Turned repositioned q2. Dressing changed to the buttock. Will continue to monitor.
[2019-09-04 08:00] VITALS: BP_SYST 107
[2019-09-04] MEDS: BALSAM PERU/CASTOR OIL 60 GM OINT...G. TP SCH ×2 (09:00→18:02)
[2019-09-04] MEDS: LUBIPROSTONE 24 MCG CAPSULE PO SCH ×2 (10:31→20:34)
[2019-09-04] MEDS: BENZTROPINE MESYLATE 1 MG TABLET PO SCH ×2 (10:32→20:34)
[2019-09-04] MEDS: CITALOPRAM HYDROBROMIDE 20 MG TABLET PO SCH (10:32)
[2019-09-04] MEDS: FAMOTIDINE 20 MG TABLET PO SCH (10:33)
[2019-09-04] MEDS: HALOPERIDOL 5 MG TABLET (HALDOL) PO SCH (10:45)
[2019-09-04] MEDS: NACL 0.9% 1,000 ML IV SCH ×2 (11:01→20:39)
--- NOTE | 2019-09-04 12:01 | NUR ---
CONSULTATION PAGED REASON FOR CONSULTATION: HIATAL HERNIA WAS CONSULT CALLED? Y PERSON WHO WAS NOTIFIED: JOSHUA CONSULTING PHYSICIAN: Shauna BEVERLY SPICE MILLER SPECIALTY:DOMESTIC MAID PHONE: [phone] REQUESTING PHYSICIAN:ZHAO BILLS
[2019-09-04 12:42] VITALS: BP_SYST 100
[2019-09-04 16:30] VITALS: BP_SYST 118
[2019-09-04 20:00] VITALS: BP_SYST 109
[2019-09-04] MEDS: LORazepam 1 MG TABLET PO SCH (20:34)
[2019-09-04] MEDS: QUEtiapine FUMARATE 200 MG TAB.SR.24H PO SCH (20:35)
--- NOTE | 2019-09-04 22:30 | NUR ---
PATIENT IN BED. NO ACUTE DISTRESS NOTED. TURNED REPOSITIONED Q2. WILL CONTINUE TO MONITOR.
[2019-09-05 02:33] VITALS: BP_SYST 110
--- NOTE | 2019-09-05 06:15 | NUR ---
NO CHANGE IN PATIENT'S CURRENT ASSESSMENT.
[2019-09-05 06:31] LABS: BASOPHILS % (AUTO) 0.5 % (0.0-2.0); EOSINOPHILS # (AUTO) 0.5 K/uL (0.0-0.4); EOSINOPHILS % (AUTO) 9.6 % (0.0-4.0); LYMPHOCYTES # (AUTO) 1.4 K/uL (1.0-5.5); MEAN CORPUSCULAR HEMOGLOBIN 27 pg (27-31); MEAN CORPUSCULAR HGB CONC 33 % (32-36); MEAN CORPUSCULAR VOLUME 82 fL (79.0-98.0); MONOCYTES # (AUTO) 0.5 K/uL (0.0-1.0); MONOCYTES % (AUTO) 9.3 % (1.7-9.3); NEUTROPHILS # (AUTO) 3.2 K/uL (1.8-7.7); NEUTROPHILS % (AUTO) 55.6 % (40.0-70.0); PLATELET COUNT (AUTO) 266 K/uL (130-430); RED CELL DISTRIBUTION WIDTH 17.2 % (9.0-15.0); WHITE BLOOD COUNT (AUTO) 5.7 K/uL (4.8-10.8)
[2019-09-05 07:35] LABS: HEMATOCRIT 21.2 % (36-54)
--- NOTE | 2019-09-05 08:00 | NUR ---
AM NOTES RECEIVED PT IN BED. A/CX4. DENIES ANY PAIN OR SOB.NO S/S OF RES DISTRESS NOTED. VITALS STABLE. SAFETY AND FALL PRECAUTIONS MAINTAINED..CALL LIGHT WITHTIN REACH . REPOSITIONED WITH PILLOW. KEPT COMFORTABLE. WILL CONTINUE TO MONITOR
[2019-09-05 08:05] VITALS: BP_SYST 118
[2019-09-05] MEDS: BALSAM PERU/CASTOR OIL 60 GM OINT...G. TP SCH (09:00)
[2019-09-05] MEDS: HALOPERIDOL 5 MG TABLET (HALDOL) PO SCH (09:46)
[2019-09-05] MEDS: LUBIPROSTONE 24 MCG CAPSULE PO SCH ×2 (09:46→20:24)
[2019-09-05] MEDS: BENZTROPINE MESYLATE 1 MG TABLET PO SCH ×2 (09:46→20:24)
[2019-09-05] MEDS: FAMOTIDINE 20 MG TABLET PO SCH (09:47)
[2019-09-05] MEDS: CITALOPRAM HYDROBROMIDE 20 MG TABLET PO SCH (09:47)
[2019-09-05 12:17] VITALS: BP_SYST 104
--- NOTE | 2019-09-05 12:35 | NUR ---
Routine Patient eating lunch with no distress noted. Patient stable at this time. at bedside.
[2019-09-05] MEDS: NACL 0.9% 1,000 ML IV SCH ×2 (12:47→20:25)
--- NOTE | 2019-09-05 14:40 | NUR ---
Started 1st unit of PRBC. Patient stable.
--- NOTE | 2019-09-05 17:00 | NUR ---
Routine Patient given partial bed bath and linens changed. Dressings on bilateral buttocks changed as well. Patient stable at this time with no distress noted and no complaint of any pain.
--- NOTE | 2019-09-05 18:15 | NUR ---
Started 2nd unit of PRBC. Patient stable.
--- NOTE | 2019-09-05 18:35 | NUR ---
Routine Patient repositioned; resting comfortably in bed with no distress noted. Patient stable throughout shift.
[2019-09-05 20:07] VITALS: BP_SYST 118
[2019-09-05] MEDS: LORazepam 1 MG TABLET PO SCH (20:24)
[2019-09-05] MEDS ORDERED: QUEtiapine FUMARATE 200 MG TAB.SR.24H PO SCH (21:00)
--- NOTE | 2019-09-05 21:15 | NUR ---
PRBC infusing patient awake chest movement symmetrical no s/sx of adverse Reaction continue to monitor .
--- NOTE | 2019-09-05 21:20 | NUR ---
LORAZEPAM 1 MG PO administer for agitation & helpful .
--- NOTE | 2019-09-06 | NUR ---
PRBC COMPLETED patient awake alert verbally Responsive no S/SX of adverse Reaction noted / .
[2019-09-06 00:38] VITALS: BP_SYST 120
--- NOTE | 2019-09-06 01:04 | NUR ---
TURNING Repositioning off loading with pillows on TWO HOUR SCHEDULE kept clean & dry as needed no SOB noted TOLERATED .
--- NOTE | 2019-09-06 04:16 | NUR ---
BED BATH implemented FOAM DRESSING CHANGE to Left & Right buttocks off loading with pillows tolerated .
[2019-09-06 08:15] VITALS: BP_SYST 118
[2019-09-06] MEDS ORDERED: SOD FERRIC GLUC COMPLEX/SUC 125 MG in NS 100 ML IV SCH (09:00)
[2019-09-06] MEDS: BENZTROPINE MESYLATE 1 MG TABLET PO SCH (10:41)
[2019-09-06] MEDS: CITALOPRAM HYDROBROMIDE 20 MG TABLET PO SCH (10:41)
[2019-09-06] MEDS: FAMOTIDINE 20 MG TABLET PO SCH (10:41)
[2019-09-06] MEDS: HALOPERIDOL 5 MG TABLET (HALDOL) PO SCH (10:41)
[2019-09-06] MEDS: LUBIPROSTONE 24 MCG CAPSULE PO SCH (10:41)
[2019-09-06] MEDS: BALSAM PERU/CASTOR OIL 60 GM OINT...G. TP SCH (10:42)
--- NOTE | 2019-09-06 10:43 | NUR ---
Routine Patient resting comfortably in bed with no distress noted. Scheduled medications given per order. Patient stable at this time.
[2019-09-06 12:20] VITALS: BP_SYST 111
--- NOTE | 2019-09-06 13:10 | NUR ---
Routine Patient eating dessert; no distress noted, no complaint of pain. Patient's brother, Santy at bedside. Patient stable at this time.
[2019-09-06] MEDS: NACL 0.9% 1,000 ML IV SCH (14:00)
[2019-09-06 15:20] LABS: BASOPHILS % (AUTO) 0.3 % (0.0-2.0); EOSINOPHILS # (AUTO) 0.5 K/uL (0.0-0.4); EOSINOPHILS % (AUTO) 4.5 % (0.0-4.0); HEMATOCRIT 29.1 % (36-54); HEMOGLOBIN 9.6 g/dL (14.0-18.0); LYMPHOCYTES # (AUTO) 0.9 K/uL (1.0-5.5); LYMPHOCYTES % (AUTO) 8.5 % (20.5-51.5); MEAN CORPUSCULAR HEMOGLOBIN 28 pg (27-31); MEAN CORPUSCULAR HGB CONC 33 % (32-36); MEAN CORPUSCULAR VOLUME 83 fL (79.0-98.0); MONOCYTES # (AUTO) 0.6 K/uL (0.0-1.0); MONOCYTES % (AUTO) 5.8 % (1.7-9.3); NEUTROPHILS # (AUTO) 8.6 K/uL (1.8-7.7); NEUTROPHILS % (AUTO) 80.9 % (40.0-70.0); PLATELET COUNT (AUTO) 281 K/uL (130-430); RED CELL DISTRIBUTION WIDTH 16.7 % (9.0-15.0); WHITE BLOOD COUNT (AUTO) 10.6 K/uL (4.8-10.8)
--- NOTE | 2019-09-06 15:30 | NUR ---
Patient received a/ox4, periods of forgetfulness, patient denies pain, denies shortness of breath, instructed the patient field installation technician light use, he verbalized understanding, call light placed within reach, fall, isolation, and aspiration precautions in place.
--- NOTE | 2019-09-06 15:50 | NUR ---
Wound Care Update: Wound evaluation orders received on 09/03/2019. Patient was evaluated by Wound Care on 09/02/2019. No new wounds are present. Will continue to follow the patient
[2019-09-06 16:14] VITALS: BP_SYST 118
--- NOTE | 2019-09-06 17:00 | NUR ---
Wound Care 1. Left Buttock near Ischium: Stage IV pressure ulcer, present on admission. Site has 50% yellow slough, 50% red tissue. No odor, small yellow purulent drainage. Periwound has blanchable erythema and scar tissue. Undermining present from 1-4 o'clock (0.6 cm), Tunnel present at 10 o'clock (2.0 cm). Bone is palpable. Wound measures 2.0 cm x 4.0 cm x 2.0 cm. Cleansed wound with normal saline. Applied moisture barrier cream to joyce-wound. Applied Venelex ointment to wound bed. Packed wound with 1/4 inch iodoform packing strip. Covered with foam dressing. 2. Right Buttock near Ischium: Stage IV pressure ulcer, present on admission. Site has 50% red tissue, 50% yellow slough. No odor, small yellow purulent drainage. Periwound has blanchable erythema and scar tissue. Undermining present from 2-7 o'clock (0.5 cm at 2 o'clock; 1.5 cm at 3 o'clock; 0.5 cm at 7 o'clock;). Wound measures 1.2 cm x 2.0 cm x 1.6 cm. Cleansed wound with normal saline. Applied moisture barrier to joyce-wound. Applied Venelex ointment to wound bed. Packed wound with 1/4 inch iodoform packing strip. Covered with foam dressing. 3. Gluteal Sulcus: Scar tissue, present on admission. Cleansed involved area with mild soap and water. Patted dry. Applied moisture barrier cream to involved area. Covered with Sacral foam dressing. Performing site care daily, and as needed for dressing soiling or dislodgment. 4. Right Olecranon: 100% non blanchable redness. . No odor, no drainage. Periwound intact. Wound measures 2.0 cm x 1.5 cm. Covered with foam dressing for protection Encouraging patient to turn every 2 hours, [id number]. Off-loading pressure areas with pillows, including the bilateral heels. Performing skin care daily and as needed. Moisture barrier cream applied to inner things and buttocks. Low-air loss mattress in place.
--- NOTE | 2019-09-06 17:29 | NUR ---
Nutrition F/U A - RD reviewed pertinent nutrition-related info via EMR (physician notes/nursing notes/labs/meds/nursing care trends/care activity). Admission Dx: GI bleed PMH: dementia, schizophrenia, anxiety, MRSA, stage 4 pressure ulcer, GERD, osteomyelitis per physician notes Current Diet Order/Nutrition Support: Soft (low fiber/bland) x1 day Ht: 5'10"/70" Wt: 128#/58 kg IBW: 166#/75 kg %IBW: 77% UBW: 127#/57 kg %UBW: 101% BMI: 18.3 kg/m2 (underweight, at risk for malnutrition) Subjective Info: Per physician order, plans for D/C back to SNF if Hgb is over 8 -- pt noted w/ recent Hgb level of 9.6. RN reported that pt has been eating well; no complaints. Per EMR, PO intake records indicated 93% average x10 meals. ESTIMATED NUTRITIONAL NEEDS CALORIES/DAY: 7177-1059 kcal/day (30-35 kcal/kg CBW for wound healing, wt gain) PROTEIN/DAY: 73-87 gm/day (1.25-1.5 gm/kg CBW for wound healing) FLUID/DAY: 1.7-2 L/day (1 ml/kcal/day for maintenance) D - Increased nutritional needs related to metabolic demands as evidenced by estimated nutritional requirements for wound healing. *ongoing I - Recommend soft (low fiber/bland) diet w/ Ensure Enlive BID and Christian BID (supplements provide ~900 kcal/day, 45 gm protein/day) M - Monitor appetite and PO intakes w/ goal of pt meeting at least 75% of estimated nutritional needs, labs trending WNL, normal GI function, and skin integrity/wt maintenance E - Moderate risk; RD to F/U within 3-5 days
--- NOTE | 2019-09-06 17:33 | NUR ---
Dietitian Recommendations * Recommend soft (low fiber/bland) diet w/ Ensure Enlive BID and Crhistian BID (supplements provide ~900 kcal/day, 45 gm protein/day) Please refer to Nutrition F/U for details.
--- NOTE | 2019-09-06 17:43 | NUR ---
DC PLANNING: RECEIVED DC ORDERS BACK TO [facility] AT PHONE [phone] ACCEPTED BACK TO ROOM 23B PER FACILITY [facility] TO ARRIVE AT 8PM. FAXED REFERRAL REQUESTED TO [phone] AND FAX # [phone]. PHONE NUMBER FOR REPORT IS [phone]. ATTEMPTED TO CONTACT BROTHER Buck BARRY AT [phone] STATES VOICEMAIL IS NOT SET UP ALSO ATTEMPTED [phone] NO ANSWER NO VOICEMAIL AVAILABLE. Addendum: 09/06/19 at 1751 by Bridgette Spencer RN RESEARCH DEVELOPMENT MANAGER ARRANGED WITH [facility] AT 8PM RESEARCH DEVELOPMENT MANAGER
[2019-09-06 18:01] VITALS: BP_SYST 118
--- NOTE | 2019-09-06 18:15 | NUR ---
Called Report to [facility] - [phone].
--- NOTE | 2019-09-06 18:41 | NUR ---
Closing note patient resting in bed, awake, denies pain, no signs of distress, all needs met, patient was prepared for discharge tonight at 8pm, will endorse report to NOC shift nurse, bed in lowest position, three side rails up, bed alarm on, bed close to nursing station, fall, aspiration and isolation precautions in place.
--- NOTE | 2019-09-06 20:15 | NUR ---
D/C Patient Patient given medication reconciliation form and D/C instructions. Exit Care provided. Patient verbalized understanding. MD discussed with patient the results and treatment provided. Patient in stable condition, ID band removed. Patient to be discharged with with left wrist 22 gauge IV. Patient educated on pain management. All belongings sent with patient.
--- NOTE | 2019-09-07 12:11 | NUR ---
DCP: DCP attempted to reach Santy wilson brother to inform him of patients discharge, voicemail not set up on either phone number. Addendum: 09/07/19 at 1227 by Mariam GUNN aleyda# [phone] C# [phone]
== END 2019-09-06 20:15 | DRG 377 ==
LOC: SED 11:38 → STU 13:54 → SMU 09-06 20:00
PROVIDERS: ADMIT Internal Medicine; ATTEND Internal Medicine
PROC: 30233N1 Transfusion of Nonautologous Red Blood Cells into Peripheral Vein, Percutaneous Approach (ICD-10-PCS; principal; 2019-09-02)
DX: K92.2 Gastrointestinal hemorrhage, unspecified (principal); L89.324 Pressure ulcer of left buttock, stage 4; L89.314 Pressure ulcer of right buttock, stage 4; I69.351 Hemiplegia and hemiparesis following cerebral infarction affecting right dominant side; F20.9 Schizophrenia, unspecified; F32.9 Major depressive disorder, single episode, unspecified; F03.90 Unspecified dementia, unspecified severity, without behavioral disturbance, psychotic disturbance, mood disturbance, and anxiety; F41.9 Anxiety disorder, unspecified; K21.9 Gastro-esophageal reflux disease without esophagitis; I70.90 Unspecified atherosclerosis; K44.9 Diaphragmatic hernia without obstruction or gangrene; D64.9 Anemia, unspecified; Z79.899 Other long term (current) drug therapy; Z86.14 Personal history of Methicillin resistant Staphylococcus aureus infection
CPT/HCPCS: 36415; 71045; 80053; 81003; 82150-TC; 82550-TC; 83605; 83690-TC; 83880; 84484; 85025; 85610-TC; 85730-TC; 86886; 86900; 86901; 86920; 87040-TC; 87081; 93005; 96365; 96375; 99285; C9113; G0378; J0696; J2060; J2405; J2916; J7030; J7050; P9021

== ENCOUNTER 2019-10-08 06:00 | Inpatient (IN) | payer OTHER, MEDICAID ==
[~2019-10-08] VITALS: Ht 177.8 cm; Wt 54.4 kg
[2019-10-08 06:00] VITALS: BP_SYST 134
[~2019-10-08 06:00] MED LIST changes: +ASCO500T20 PO; +FER300L PO; +PANT20TA3 PO; +QUET400T PO; +[UNRECOGNIZED DRUG - CODE] PO
--- NOTE | 2019-10-08 08:35 | NUR ---
Patient to ER bed 05 to gown for evaluation. Side rails up.
--- NOTE | 2019-10-08 08:37 | NUR ---
Patient brought in by BLS ambulance in the ED d/t right hip fracture as seen in his x-ray post mechanical fall yesterday. Denied any chest pain or shortness of breath. Denied any fevers, nausea, vomiting, or chills. Patient is alert and oriented x2, respirations even and unlabored, speaking in full sentences. VSS, pain level 7/10. Informed of wait time. Instructed to notify ED staff for any changes in condition or worsening of symptoms. Patient verbalized understanding.
--- NOTE | 2019-10-08 08:38 | NUR ---
X-ray done at bedside as ordered by Dr. Chaney. Patient tolerated the procedure well.
--- NOTE | 2019-10-08 08:40 | NUR ---
ER Dr. Chaney at bedside examining patient.
[2019-10-08] MEDS ORDERED: NACL 0.9% 1,000 ML IV ONE (08:43)
[2019-10-08] MEDS ORDERED: ONDANSETRON HCL 4 MG/2 ML VIAL IVP ONE (08:45)
[2019-10-08] MEDS ORDERED: MORPHINE 4 MG/ML INJ. SYRINGE IVP ONE (08:45)
--- NOTE | 2019-10-08 09:08 | NUR ---
# 20 gauge angiocath placed to right hand. Use of asceptic technique. Opsite placed over site. Blood return noted. Flushed with 10 cc of normal saline. No evidence of infiltration noted. Patient tolerated well.
--- NOTE | 2019-10-08 09:24 | NUR ---
ECG done at bedside as ordered by Dr. Chaney. Patient tolerated the procedure well. Report given to
--- NOTE | 2019-10-08 09:25 | NUR ---
Administered Morphine Sulfate 4mg and Zofran IVP as ordered by Dr. Chaney. Patient tolerated the medication well. See eMAR for details.
[2019-10-08 09:34] LABS: BASOPHILS % (AUTO) 0.4 % (0.0-2.0); EOSINOPHILS # (AUTO) 0.1 K/uL (0.0-0.4); EOSINOPHILS % (AUTO) 1.5 % (0.0-4.0); HEMATOCRIT 32.9 % (36-54); HEMOGLOBIN 10.6 g/dL (14.0-18.0); LYMPHOCYTES # (AUTO) 1.3 K/uL (1.0-5.5); LYMPHOCYTES % (AUTO) 18.3 % (20.5-51.5); MEAN CORPUSCULAR HEMOGLOBIN 26 pg (27-31); MEAN CORPUSCULAR HGB CONC 32 % (32-36); MEAN CORPUSCULAR VOLUME 79 fL (79.0-98.0); MONOCYTES # (AUTO) 0.6 K/uL (0.0-1.0); MONOCYTES % (AUTO) 8.2 % (1.7-9.3); NEUTROPHILS # (AUTO) 5.1 K/uL (1.8-7.7); NEUTROPHILS % (AUTO) 71.6 % (40.0-70.0); PLATELET COUNT (AUTO) 342 K/uL (130-430); RED BLOOD CELL COUNT(AUTO) 4.15 MIL/uL (4.2-6.2); RED CELL DISTRIBUTION WIDTH 17.1 % (9.0-15.0); WHITE BLOOD COUNT (AUTO) 7.1 K/uL (4.8-10.8)
[2019-10-08 09:46] LABS: CALCIUM 9.5 mg/dL (8.4-11.0); CREATININE 0.89 mg/dL (0.55-1.30); POTASSIUM 3.1 mmol/L (3.5-5.1)
[2019-10-08 09:53] LABS: ALBUMIN 3.5 g/dL (3.4-4.8); TOTAL BILIRUBIN 0.4 mg/dL (0.0-1.0)
--- NOTE | 2019-10-08 10:00 | NUR ---
Tried putting an indwelling catheter on, unsuccessful. aware.
--- NOTE | 2019-10-08 10:32 | NUR ---
Applied Condom catheter with use of sterile technique. No immediate return of urine noted. Bedside drainage bag placed below level of bladder. Pt tolerated procedure well. Patient unable to toilet self.
[2019-10-08] MEDS ORDERED: ONDANSETRON HCL 4 MG/2 ML VIAL IVP PRN (11:45)
[2019-10-08] MEDS ORDERED: MORPHINE 2 MG/ML INJ. SYRINGE IVP PRN ×2 (11:45)
--- NOTE | 2019-10-08 11:45 | NUR ---
Patient is resting comfortably in bed, respirations even and unlabored. Brother at bedside.
--- NOTE | 2019-10-08 13:40 | NUR ---
ADMISSION NOTES RECEIVED PATIENT FRO OPERATIONS SYSTEMS SPECIALIST , NO DISTRESS, PATIENT HL TO LEFT AC , PATIENT VERBAL AND ABLE TO ANSWER QUESTION,DENTURES IS LOOSE , WITH SMITH CATH INTACT
--- NOTE | 2019-10-08 13:44 | NUR ---
Patient will be admitted to care of Dr. Howard. Admitted to MS unit. Will go to room 104B. Belongings list completed. Complete and up to date summary report printed. SBAR report to be ELISA Bowers at bedside with opportunity for questions.
--- NOTE | 2019-10-08 14:01 | NUR ---
CONSULTATION PAGED/CALLED Reason for Consultation: [] HIP FRACTURE Person Who was Notified: [] HAZEL Consulting Physician: [] DR HOLCOMB, SHEET METAL LAYOUT MECHANIC FOR DR Sam BRUNER Disability Liaison Officer Specialty: [] ORTHO Ordering Physician: [] DR Ti DUEÑAS
--- NOTE | 2019-10-08 14:02 | NUR ---
ADMISSION NOTE- LATE ENTRY 1340 Received patient from ER via gurney, received report from RN. Patient admitted with diagnosis of . Patient oriented to hospital routine, call light, toileting and safety-patient verbalized understanding.
[2019-10-08 14:05] VITALS: BP_SYST 132
--- NOTE | 2019-10-08 15:41 | NUR ---
CONSULTATION PAGED/CALLED Reason for Consultation: persistent UTI Person Who was Notified: Nissa Consulting Physician: Talon Pantoja Wood Shingle Roofer Specialty: ID Ordering Physician: Dr Carly Glover
--- NOTE | 2019-10-08 17:00 | NUR ---
NO URINE OUTPUT PATIENT CONDOM CATH INTACT WIT A VERY SMALL AMOUNT , BUT NOT ENOUGH FOR THE UA , PATIENT WAS INSERTED SMITH CATH IN ER BUT UNABLE TO D/T RESISTANCE , CALLED DR DUEÑAS INFORMED ABOUT ABOVE NO URINE OUTPUT , BLADDER SCAN ORDERED AND WHEN PATIENT IS RETAINING TO CALL FOR UROLOGIST CONSULT ,NO BLADDER DISTENTION AT THIS TIME Addendum: 10/08/19 at 1921 by Elissa Giron RN BLADDER SCAN DONE AND MORE THAN 667 NOTED IN THE SCANNER , AWARE , HENCE UROLOGIST IS CONSULTED
[2019-10-08] MEDS: D5/0.45 NS 1,000 ML IV SCH (17:01)
--- NOTE | 2019-10-08 19:17 | NUR ---
ENDORSMENT PATIENT ENDORSED TO NEXT SHIFT CONT CARE , TO FOLLOW UP WITH UROLOGIST FOR NO URINE OUTPUT, PATIENT WILL HAVE A WOUND CONSULT WITH MIGUELANGEL WOUND NURSE, NO COMPLAIN OF PAIN , STILL WITH RT LEG IS SHORTER THAT THE LEFT , WOUND DRESSING DONE , PATIENT HAD MRSA COLLECTED IN ER , STILL TO COLLECT UA ONCE WITH URINE OUTPUT Addendum: 10/08/19 at 2006 by Elissa Giron RN ADDENDUM DR DUEÑAS SAID TO MAINTAIN NPO FOR PATIENT TO BE SEEN BY ORTHO, AND ALSO ORDERED FOR SCD Addendum: 10/09/19 at 1610 by Elissa Giron RN ADDENDUM PATIENT WOUND WAS NOT ABLE TO DO MEASUREMENT D/T PATIENT WONT STAY WITH THAT POSITION FOR LONG , NOT ABLE TO MEASURE UNDERMINING MEASUREMENT .
--- NOTE | 2019-10-08 19:30 | NUR ---
Received bedside report from am shift RN. Pt is a/a/o x 2-3, some DD is noticeable, but patient can make needs known to staff. Resp even and unlabored with 0 SOB noted. Pt is admitted after fall at SNF. Tests show patient has pt has fractured his R femur. Surgeon to come see patient with possible surgery tomorrow. Pt is to be NPO until them. Pt is in isolation for pending MRSA screening. Pt has been unable to urinate and ER nurse as well as floor nurse has tried to place giang but have been unable to do so. Pt now has a condom catheter and if patient does not show some output, we will call MD. Cont. to monitor. Call light in easy reach.
[2019-10-08 20:00] VITALS: BP_SYST 155
--- NOTE | 2019-10-08 22:35 | NUR ---
STAT Urology Consultation Paged Reason for consultation: Acute Bladder Retention Was consult called: Yes Person who was notified: Aury Consulting physician: Dr Dowling Senior Market Research Analyst phone number: Senior Market Research Analyst specialty: Urology Ordered By: Dr Glover
--- NOTE | 2019-10-09 | NUR ---
Matthew Dowling MD in to see patient. Placed giang catheter in without difficulty. 900 ml of urine output immediately, urine sample sent to lab for UA/culture. Pt tolerated well.
[2019-10-09 00:30] LABS: BILIRUBIN,URINE NEGATIVE (NEGATIVE); BLOOD, URINE NEGATIVE (NEGATIVE); CLARITY/URINE CLEAR (CLEAR); COLOR,URINE YELLOW (YELLOW); GLUCOSE,URINE NEGATIVE (NEGATIVE); KETONES,URINE 1+ (NEGATIVE); LEUKOCYTE ESTERASE ,URINE NEGATIVE (NEGATIVE); NITRITE, URINE NEGATIVE (NEGATIVE); PH,URINE 8.5 (5.0-8.0); PROTEIN URINE NEGATIVE (NEGATIVE); UROBILINOGEN,URINE 0.2 (0.2-1.0)
[2019-10-09 01:03] VITALS: BP_SYST 120
--- NOTE | 2019-10-09 04:00 | NUR ---
Pt continues to drain urine to bag via gravity. Pt kept clean and dry throughout the nght with no c/o pain or other acute distress. Pt sleeping at this time.
--- NOTE | 2019-10-09 08:00 | NUR ---
RN INITIAL NOTES RECEIVED PATIENT IN BED NOT IN ANY DISTRESS , WITH IVF INFUSING TO LEFT AC , PATIENT RESP EVEN AND UNLABORED , PATIENT WANTS TO EAT , MAINTAINED NPO FOR NOW WHILE WAIITNG FOR THE ORTHO VISIT , PATIENT GETTING ANXIOUS AND ANGRY
--- NOTE | 2019-10-09 09:44 | NUR ---
Nutrition Update Andres Scale 14 noted. Pt admitted for hip fracture Diet: no active diet order BMI: 16.3 kg/m2 RD to follow per nutrition care standards.
--- NOTE | 2019-10-09 10:00 | NUR ---
ORTHO FOLLOW MADE A FOLLOW UP TO NC AND SHE SAID DR BRUNER TOLD HER AND SAID WILL COME TODAY THURSDAY . INFORMED PATIENT AND HE SAID HE WANTS TO EAT
[2019-10-09] MEDS: cefTRIAXone 1 GM in D5W 50 ML IV SCH (12:04)
[2019-10-09] MEDS: D5/0.45 NS 1,000 ML IV SCH (12:04)
--- NOTE | 2019-10-09 12:30 | NUR ---
DR DUEÑAS ROUNDS PATIENT SEEN BY DR DUEÑAS INFORMED PATIENT STILL NPO , BROTHER CAME AND GAVE HIM DEBBIE WANG, INFORMED ORTHOPEDIC WILL COME TODAY , PATIENT IS STILL ANGRY HE WANTS TO EAT Addendum: 10/09/19 at 1421 by Elissa Giron RN DR DUEÑAS SAID TO MAINTAIN NPO , AND TO VERIFY WITH ORTHO WHEN HE COMES Addendum: 10/09/19 at 1606 by Elissa Giron RN UNABLE TO DO DRESSING AT THIS TIME D/T WAITING FOR THE NAEL BAILEY TO SEE AND EVAL PATIENT CONDITION
[2019-10-09 13:08] VITALS: BP_SYST 111
--- NOTE | 2019-10-09 15:00 | NUR ---
DR FRANC NAYAK DR AGAIN CALLED TO VERIFY NPO STATUS AND SURGERY STATUS , PER MD HE IS IN THE PARKING LOT AND HE WILL COMING TO THE HOSPITAL SOON , AND WILL SEE PATIENT
--- NOTE | 2019-10-09 16:01 | NUR ---
ORTHO SURGERY DR BRUNER CAME IN SEEN PATIENT AND HEELS UP IN THE PILLOW AND NOT BELOW THE KNEES , STILL WITH RT LEG SHORTER THAN THE LEFT LEG , DISCUSSED PATIENT CONDITION , PATIENT OK TO EAT DINNER AND BREAKFAST, SURRGERY MIGHT BE IN THE AFTERNOON , DISCUSSED WITH DR BRUNER PATIENT SACRAL WOUND , PER DR BRUNER YOU DON'T NEED TO MOVE OR DRESS THE WOUND , WILL TAKE CARE OF IT IN OR TOMORROW, MD STATED HE SAW THE SACRAL WOUND , SURGERY WILL DO THE DRESSING TOMORROW.
[2019-10-09 16:36] VITALS: BP_SYST 110
[2019-10-09] MEDS: CITALOPRAM HYDROBROMIDE 20 MG TABLET PO SCH ×2 (17:30→18:52)
[2019-10-09] MEDS ORDERED: BISACODYL 10 MG/SUPPOSITORY RC PRN (17:30)
[2019-10-09] MEDS ORDERED: LORazepam 1 MG TABLET PO PRN (17:30)
--- NOTE | 2019-10-09 17:30 | NUR ---
MEDICATIONS ORDERS DR DUEÑAS WAS CALLED PATIENT STARTED TO BE AGITATED BEC ALL HIS PSYCHOTROPIC MEDS WAS NOT RECONCILLED, MD ORDERED TO RESUME NAME MEDS , ORDERS NOTED WILL START MEDS ONCE VERIFIED WITH MEDS.
--- NOTE | 2019-10-09 17:47 | NUR ---
CONSENT /BROTHER PATIENT BROTHER BELÉN WAS CALLED AND INFORMED ABOUT THE SURGERY IN AM, PER BELÉN HE WILL COME TOMORROW LIKE 9AM TO SIGN THE CONSENT ,
[2019-10-09] MEDS: CITALOPRAM HYDROBROMIDE 20 MG TABLET ONE ×2 (18:53→19:12)
--- NOTE | 2019-10-09 18:58 | NUR ---
ENDORSEMENT WILL ENDORSE TO NEXT SHIFT CONT CARE , PATIENT WILL HAVE RT HIP HEMIARTHROPLASTY TOMORROW IN THE AFTERNOON PATIENT WILL START NPO AFTER BREAKFAST MEAL AND BROTHER BELÉN WILL BE COMING 9 AM TOMORROW TO SIGN CONSENT , PATIENT EATING NO COMPLAIN OF PAIN THE WHOLE SHIFT, CONT WITH IVF ORDERED , CONT WITH SMITH CATH, DRESSING TO SACRUM INTACT IN CASE IT WILL SOIL WILL DRESS, BUT PER DR BRUNER NO NEED TO DRESS IF NOT NECESSARY, TO KEEP BOTH HEELS ON TOP OF PILLOWS NOT THE KNEES, SAFETY ENSURED
--- NOTE | 2019-10-09 19:15 | NUR ---
OPENING NOTES Patient is resting, HOB elevated, no signs of respiratory distress observed at this time. IV site patent, IVF running, dressings c/d/i. Arreola catheter in place, no kinks or loops, bag not touching the floor, draining by gravity, clear yellow urine noted. Endorsed that brother will be coming by at 0900 to sign the consent, and patient to be NPO after breakfast. Call light within reach, bed alarm on, bed at lowest position. Will continue to monitor.
[2019-10-09 20:00] VITALS: BP_SYST 128
[2019-10-09] MEDS: PANTOPRAZOLE SODIUM 40 MG TAB PO SCH (20:40)
[2019-10-09] MEDS: BENZTROPINE MESYLATE 1 MG TABLET PO SCH (20:40)
[2019-10-09] MEDS: QUEtiapine FUMARATE 100 MG TABLET PO SCH (20:40)
--- NOTE | 2019-10-09 22:00 | NUR ---
Patient provided PO medications crushed with pudding, patient tolerated well, will continue to monitor.
--- NOTE | 2019-10-10 00:08 | NUR ---
Patient is resting, eyes open, playing with dentures. No signs of distress observed, and patient states that he has no pain at this time. Will continue to monitor.
[2019-10-10 00:32] VITALS: BP_SYST 123
[2019-10-10] MEDS: D5/0.45 NS 1,000 ML IV SCH ×2 (01:52→23:28)
--- NOTE | 2019-10-10 02:19 | NUR ---
Patient is resting, eyes closed. No distress observed, will continue to monitor.
--- NOTE | 2019-10-10 06:50 | NUR ---
CLOSING NOTES Patient is resting, eyes closed. No signs of acute respiratory distress observed. IV site patent, dressings c/d/i. Incontinence care provided. Heels elevated throughout shift. Call light within reach, bed alarm on, bed at lowest position. All needs met throughout shift. Will endorse care to oncoming shift.
[2019-10-10] MEDS: FERROUS SULFATE 325 MG TABLET.DR PO SCH (08:23)
[2019-10-10] MEDS: QUEtiapine FUMARATE 100 MG TABLET PO SCH ×2 (08:23→23:02)
[2019-10-10] MEDS: BENZTROPINE MESYLATE 1 MG TABLET PO SCH ×2 (08:23→23:02)
[2019-10-10] MEDS: cefTRIAXone 1 GM in D5W 50 ML IV SCH (08:23)
[2019-10-10] MEDS: CITALOPRAM HYDROBROMIDE 20 MG TABLET PO SCH (08:23)
[2019-10-10] MEDS: PANTOPRAZOLE SODIUM 40 MG TAB PO SCH ×2 (08:23→23:02)
--- NOTE | 2019-10-10 09:00 | NUR ---
ASSUMPTION OF CARE: RECEIVED PT AWAKE, CONFUSED, DX: INADEQUATE VENTILATION, R/T PNEUMONIA, LUNG SOUNDS ARE CLEAR, BREATHING UNLABORED, O2 SAT =98% ORA, AFEBRILE, VSS, NO S/S OF DISTRESS, NO INDICATION OF PAIN OR DISCOMFORT, IV SITE INTACT, PATENT, NO REDNESS OR SWELLING, REORIENTED TO UNIT, CALL LIGHT PLACED WITHIN REACH, ROOM CLOSE TO NURSES STATION, FAMILY MEMBER AT BEDSIDE, WILL CONT' TO MONITOR AND ASSESS. Addendum: 10/10/19 at 1841 by Qian Desai RN WRONG DX
--- NOTE | 2019-10-10 09:00 | NUR ---
ASSUMPTION OF CARE: RECEIVED PT AWAKE, CONFUSED, DX:PAIN, R/T RIGHT FEMUR FX, LUNG SOUNDS ARE CLEAR, BREATHING UNLABORED, O2 SAT =98% ORA, AFEBRILE, VSS, NO S/S OF DISTRESS, NO INDICATION OF PAIN OR DISCOMFORT, IV SITE INTACT, PATENT, NO REDNESS OR SWELLING, REORIENTED TO UNIT, CALL LIGHT PLACED WITHIN REACH, ROOM CLOSE TO NURSES STATION, FAMILY MEMBER AT BEDSIDE, WILL CONT' TO MONITOR AND ASSESS.
[2019-10-10] MEDS ORDERED: VANCOMYCIN HCL 1 GM/NS PREMIX 250 ML IV ONE (09:45)
--- NOTE | 2019-10-10 12:30 | NUR ---
WOUND CARE: PT TREATED FOR WOUNDS ON L+R BUTTOCKS, EVAL COMPLETED AT THIS TIME BY WOUND CARE NURSE MIGUELANGEL PÉREZ, WOUND WAS MEASURED, CLEANSED WITH NS, HYDROGEL APPLIED, IODOFORM STRIP INSERTED TO WOUND BED, COVERED WITH TIELLE DRSG, REPOSITIONED FOR COMFORT, WILL CONT' WITH POC.
[2019-10-10 12:33] VITALS: BP_SYST 97
--- NOTE | 2019-10-10 12:46 | NUR ---
WOUND EVALUATION: Wound Consult received from Dr. Glover. Thank you, Dr. Glover, for the consult. Patient received in a John Bed with an IsoFlex SAM mattress, awake, alert, confused. Patient is unable to turn in bed independently. Andres Score is a 16. Past Medical History: Schizophrenia, Cognitive Communication Deficit, Dementia, Hypotension, PE/DVT, GERD, history of falls, Depression, Anxiety, Chronic Pain Syndrome, Anemia, Dysphagia and Pressure ulcers. Recent Labs: WBC 7.1, RBC 4.15, hemoglobin 10.6, hematocrit 32.9, potassium 3.1, alkaline phosphatase is 132, PTT 23.4. Microbiology: Blood culture results 2 in progress. Urine culture results negative. MRSA screen results positive. Intrinsic factors that delay wound healing: Anemia. Extrinsic factors that delay wound healing: Decreased mobility. Wound Assessment: 1. Left Buttock near Ischium: Prior Stage IV pressure ulcer, present on admission. Site has 5% red tissue, 30% yellow tissue, 65% pink tissue. Mild odor, no drainage. Periwound white. Surrounding tissue has blanchable erythema and scar tissue. Undermining present from 10-5 o'clock (12 o'clock: 0.9 cm; 3 o'clock: 0.5 cm). Wound measures 2.7 cm x 3.0 cm x 0.6 cm. Recommend: Cleanse wound with normal saline. Apply moisture barrier cream to joyce-wound. Apply Venelex ointment to wound bed. Pack wound with 1/4 inch iodoform packing strip. Cover with foam dressing. Perform wound care daily, and as needed for dressing soiling or dislodgement. 2. Right Buttock near Ischium: Prior Stage IV pressure ulcer, present on admission. Site has 20% pink tissue, 80% yellow tissue. Mild odor, no drainage. Periwound white. Surrounding tissue has blanchable erythema and scar tissue. Undermining present from 3-6 o'clock (1.0 cm at 3 o'clock; 0.6 cm at 6 o'clock;). Wound measures 1.5 cm x 1.5 cm x 1.3 cm. Recommend: Cleanse wound with normal saline. Apply moisture barrier to joyce-wound. Apply Venelex ointment to wound bed. Pack wound with 1/4 inch iodoform packing strip. Cover with foam dressing. Perform wound care daily, and as needed for dressing soiling or dislodgement. 3. Gluteal Sulcus: Scar tissue, present on admission. Recommend: Cleanse involved area with mild soap and water. Pat dry. Apply moisture barrier cream to involved area. Cover with foam dressing. Perform site care daily, and as needed for dressing soiling or dislodgment. 4. Scrotum: Erythema from IAD, present on admission. Recommend: Cleanse site with mild soap and water. Pat dry. Apply antifungal powder to Scrotum. Cradle scrotum with inter-dry AG cloth and pull up cloth in between thighs to float Scrotum. Perform site care BID, and as needed for inter-dry AG cloth soiling. Change inter-dry AG cloth q5days and prn for soiling. 5. Bilateral Heels: Blanchable red erythema, present on admission. Recommend: Elevate, offload and float bilateral heels with one pillow lengthwise under each extremity at all times. Also recommend: Encourage and assist patient with repositioning wlik-ii-zoyh only every [address] one pillow underneath lower back and one pillow underneath lower extremities (hand should freely slide underneath buttock/Sacral areas) bilaterally. Place an additional pillow underneath one side of noble when turning patient. Off-load pressure areas with pillows for pressure re-distribution. Offload, elevate and float bilateral heels with one pillow lengthwise under each extremity at all times. Perform skin care and monitor skin integrity Q shift. Use moisture barrier cream on buttocks and other moisture susceptible areas QID and as needed for soiling. Maintain patient on a low air-loss mattress.
--- NOTE | 2019-10-10 12:47 | NUR ---
Dietitian Recommendations *Recommend: advance diet when medically appropriate. *Once diet is advanced, add Christian BID and MVI for wound healing. Please see Nutritional Assessment for details. HANNAH, SALINAS
--- NOTE | 2019-10-10 15:08 | NUR ---
SS NOTES/DCP: CONSTRUCTION SITE CROSSING GUARD attempted to meet with patient at bedside who appears to be confused. Pt responds to name and able to answer a few questions only. CONSTRUCTION SITE CROSSING GUARD phoned [facility] and spoke with Min Ashley who did not have information on patient and was transferred to , left a message for a call back. CONSTRUCTION SITE CROSSING GUARD attempted to phone brother Santy who is not available to speak at this time. CONSTRUCTION SITE CROSSING GUARD will follow up.
--- NOTE | 2019-10-10 15:16 | NUR ---
DC Planning: Surgery rt hip hemiarthroplasty planing for today: pending. DC Plans pt to returning back to [facility] when stable.
[2019-10-10] MEDS ORDERED: POLYMYXIN 500,000/BACIT.10,000 UNITS in NS IRR 1 L IR ONE (15:17)
--- NOTE | 2019-10-10 15:45 | NUR ---
OR: PT OFF UNIT TO OR FOR SCHEDULED PROCEDURE RIGHT (HEMIARTHROPLASTY), PREP FOR SURGERY COMPLETED, CHG GIVEN, DRESSING CHANGES COMPLETED, PROPHYLAXIS MADE AVAILABLE TO GIVE IN OR, DENTURES REMOVED AND KEPT AT BEDSIDE, IV SITE INTACT, PATENT, NO REDNESS OR SWELLING, WILL CONT' WITH POC.
[2019-10-10 16:27] VITALS: BP_SYST 111
[2019-10-10 16:43] VITALS: BP_SYST 111
[2019-10-10] MEDS ORDERED: DIPHENHYDRAMINE INJ 50 MG/ML VIAL IVP PRN (16:45)
[2019-10-10] MEDS ORDERED: fentaNYL CITRATE/PF 100 MCG/2 ML AMP IVP PRN ×2 (16:45)
[2019-10-10] MEDS ORDERED: NALOXONE HCL 0.4 MG/ML AMP (NARCAN) IVP PRN ×2 (16:45)
[2019-10-10] MEDS ORDERED: KETOROLAC TROMETHAMINE 60 MG/2 ML VIAL IM PRN (16:45)
[2019-10-10] MEDS ORDERED: NALBUPHINE HCL 10 MG/ML AMP IVP PRN (16:45)
[2019-10-10] MEDS ORDERED: MORPHINE SULFATE 10MG/10ML PF AMP SP SCH (16:45)
[2019-10-10] MEDS ORDERED: ONDANSETRON HCL 4 MG/2 ML VIAL IVP PRN (16:45)
[2019-10-10] MEDS ORDERED: BUPIVACAINE LIPOSOME/PF 266 MG/20 ML VIAL INFIL ONE (18:04)
[2019-10-10] MEDS ORDERED: LR 1,000 ML IV.SOLN IV ONE (18:20)
[2019-10-10] MEDS ORDERED: PROPOFOL 200MG/ 20ML VIAL (DIPRIVAN) IV ONE (18:20)
[2019-10-10] MEDS ORDERED: BUPIVACAINE /PF 0.75% 10 ML VIAL INJ ONE (18:20)
--- NOTE | 2019-10-10 19:05 | NUR ---
Patient back from OR, vital signs within normal limits, no signs of distress observed. IVF running, dressings c/d/i. Will continue to monitor.
--- NOTE | 2019-10-10 19:30 | NUR ---
OPENING NOTES Patient is resting, HOB elevated, no signs of respiratory distress observed at this time. IV site patent, IVF running, dressings c/d/i. Arreola catheter in place, no kinks or loops, bag not touching the floor, draining by gravity, clear yellow urine noted. Surgical dressing on Right thigh intact. Endorsed that Dr. Rondon and Dr. Up had said that the surgery did not go well, hip socket was too close toward the nerve. AP pelvis will be done by radiology. Call light within reach, bed alarm on, bed at lowest position. Will continue to monitor.
--- NOTE | 2019-10-10 19:30 | NUR ---
SPOKE TO DR. BRUNER, DR. BRUNER NOTED THAT VANCO WAS GIVEN AT [facility] AT 1830, THE NEXT DOSE CAN BE 0630, WAS TOLD THAT SURGERY WAS UNSUCCESSFUL, PVCS SEEN AT [facility] OK TO RESUME MECHANICAL SOFT DIET.
[2019-10-10] MEDS: NYSTATIN 15 GM TOPICAL POWDER TP SCH (21:00)
[2019-10-10] MEDS ORDERED: VANCOMYCIN HCL 1 GM/NS PREMIX 250 ML IV SCH (21:00)
--- NOTE | 2019-10-10 22:30 | NUR ---
Patient is yelling that he does not want to be touched and wants the sheets over his face. Patient states that he is not in pain. Will go back to patient after patient calms down. Will continue to monitor.
[2019-10-10] MEDS: DOCUSATE SODIUM 100 MG CAPSULE PO SCH (23:02)
[2019-10-11 00:18] VITALS: BP_SYST 116
--- NOTE | 2019-10-11 02:11 | NUR ---
Patient is resting, eyes closed. No signs of acute respiratory distress observed. Will continue to monitor.
[2019-10-11] MEDS: ONDANSETRON HCL 4 MG/2 ML VIAL IVP PRN ×2 (04:41→10:47)
--- NOTE | 2019-10-11 05:10 | NUR ---
Patient has vomited dark brown emesis, PRN Zofran to be provided. Linens changed. No distress observed at this time. Patient states that he has 0/10 pain. Will continue to monitor.
[2019-10-11] MEDS: VANCOMYCIN HCL 1 GM/NS PREMIX 250 ML IV SCH ×2 (06:26→17:27)
[2019-10-11 07:07] LABS: CALCIUM 7.8 mg/dL (8.4-11.0); CREATININE 0.62 mg/dL (0.55-1.30); POTASSIUM 3.6 mmol/L (3.5-5.1); VANCOMYCIN,TROUGH 6.9 ug/mL (5.0-10.0)
[2019-10-11 07:24] LABS: BASOPHILS % (AUTO) 0.2 % (0.0-2.0); EOSINOPHILS # (AUTO) 0.1 K/uL (0.0-0.4); EOSINOPHILS % (AUTO) 0.7 % (0.0-4.0); LYMPHOCYTES # (AUTO) 0.5 K/uL (1.0-5.5); LYMPHOCYTES % (AUTO) 5.5 % (20.5-51.5); MEAN CORPUSCULAR HEMOGLOBIN 26 pg (27-31); MEAN CORPUSCULAR HGB CONC 32 % (32-36); MEAN CORPUSCULAR VOLUME 79 fL (79.0-98.0); MONOCYTES # (AUTO) 0.5 K/uL (0.0-1.0); MONOCYTES % (AUTO) 5.1 % (1.7-9.3); NEUTROPHILS # (AUTO) 7.9 K/uL (1.8-7.7); NEUTROPHILS % (AUTO) 88.5 % (40.0-70.0); PLATELET COUNT (AUTO) 210 K/uL (130-430); RED BLOOD CELL COUNT(AUTO) 2.42 MIL/uL (4.2-6.2); RED CELL DISTRIBUTION WIDTH 16.7 % (9.0-15.0); WHITE BLOOD COUNT (AUTO) 8.9 K/uL (4.8-10.8)
--- NOTE | 2019-10-11 07:30 | NUR ---
CLOSING NOTES Patient is resting, HOB elevated, no signs of respiratory distress observed at this time, no more signs of vomiting. IV site patent, IVF running, dressings c/d/i. Arreola catheter in place, no kinks or loops, bag not touching the floor, draining by gravity, clear yellow urine noted. Surgical dressing on Right thigh intact. Endorsed that Dr. Rondon and Dr. Up had said that the surgery did not go well, hip socket was too close toward the nerve. Call light within reach, bed alarm on, bed at lowest position. All needs met throughout shift. Will endorse care to oncoming shift.
[2019-10-11 08:00] VITALS: BP_SYST 105
[2019-10-11 08:07] LABS: HEMATOCRIT 19.2 % (36-54); HEMOGLOBIN 6.2 g/dL (14.0-18.0)
[2019-10-11] MEDS: cefTRIAXone 1 GM in D5W 50 ML IV SCH (10:54)
[2019-10-11] MEDS: QUEtiapine FUMARATE 100 MG TABLET PO SCH ×2 (11:13→22:05)
[2019-10-11] MEDS: CITALOPRAM HYDROBROMIDE 20 MG TABLET PO SCH (11:14)
[2019-10-11] MEDS: FERROUS SULFATE 325 MG TABLET.DR PO SCH (11:14)
[2019-10-11] MEDS: DOCUSATE SODIUM 100 MG CAPSULE PO SCH ×2 (11:14→22:05)
[2019-10-11] MEDS: PANTOPRAZOLE SODIUM 40 MG TAB PO SCH ×2 (11:14→22:04)
--- NOTE | 2019-10-11 11:47 | NUR ---
DC Planning: informed pt's brother/Santy at bedside re dc to [facility] vs [facility] (dr Glover's recommendation). Santy had several nursing care concerns and does not want pt returning back to [facility]. As for [facility], he said the pt was there before and the doctor moved the pt around. He does not want pt to go there either. CM informed him the IM letter from Medicare and providing him the choice of snf information. Santy stated he will call [facility] to appeal the discharge. He wants to speak with dr. Glover or surgeon about pt 's prognosis which he tries to call the mds. Santy requested CM to search for anoter snf close to his home in [place], so he can visit the pt often. He plans to take pt home after the rehab as well. Santy is the IHSS for the pt at this time. He reqeusted to [facility] then he will call back with other selection. [facility], [facility], [facility], [facility], [facility], [place], [facility]. He signed acknowledgement IM form and SNF of choice form and CM placed them in pt's chart. gina Becerra will process the referral request accordingly. Addendum: 10/11/19 at 1504 by Abe Hdz RN Informed dr. Glover of the above info and Santy may appeal the discharge. The md stated he will speak with Santy.
--- NOTE | 2019-10-11 12:06 | NUR ---
Discharge Planning: DCP faxed referral to [facility] (f [phone] p [phone]) DCP to follow up Addendum: 10/11/19 at 1553 by Mariam Jenkins DP Patient came from [facility] (f Addendum: 10/11/19 at 1559 by Mariam Jenkins DP Patient came from [facility] (f [phone] p [phone]) per [place] patient accepted back to [facility], family does not want to have patient go back. Family wanted family closer to them DCP faxed referral to [facility] (f [phone] p [phone])
[2019-10-11 12:51] VITALS: BP_SYST 102
[2019-10-11] MEDS: BENZTROPINE MESYLATE 1 MG TABLET PO SCH ×2 (13:43→22:05)
--- NOTE | 2019-10-11 13:47 | NUR ---
STATION MANAGER CONSULT SPOKE TO ROSENDA OFFICE OF DR MEEK, SHE WILL THE RELAY THE MESSAGE TO
[2019-10-11 17:09] VITALS: BP_SYST 116
[2019-10-11] MEDS: MUPIROCIN 1 GM OIN.PF.APP NS SCH ×2 (17:24→21:00)
[2019-10-11] MEDS: NYSTATIN 15 GM TOPICAL POWDER TP SCH ×2 (17:25→22:06)
[2019-10-11] MEDS: BALSAM PERU/CASTOR OIL 60 GM OINT...G. TP SCH (17:25)
[2019-10-11] MEDS: D5/0.45 NS 1,000 ML IV SCH (17:50)
[2019-10-11] MEDS: ENOXAPARIN SODIUM 40 MG/0.4 ML SYRINGE SUBCUT SCH (18:00)
--- NOTE | 2019-10-11 18:14 | NUR ---
Blood Transfusion first unit of PRBCs started for primary RN Sarah, educated patient on signs and symptoms of a transfusion reaction, no acute distress noted, verified blood with second RN, blood hung with NS at 125ml/hr, patient tolerating well, RN at bedside for first 15 minutes of transfusion.
--- NOTE | 2019-10-11 18:29 | NUR ---
Blood Transfusion first 15 minutes of blood transfusion completed, patient tolerating well, no acute distress noted, no signs and symptoms of transfusion reaction noted, patient denies any change from baseline, IV site clean, dry, and intact, no swelling noted, continued first unit of PRBCs at 125ml/hr, informed patients primary RN Sarah of rate and that patient is tolerating well, endorsed remainder of blood transfusion monitoring to Sarah PÉREZ.
--- NOTE | 2019-10-11 19:10 | NUR ---
OPENING NOTES RECEIVE REPORT FROM MORNING SHIFT NURSE, ELISA HINES. PATIENT AWAKE AND CONFUSE AND AGITATED, YELLING. AOX1. NO SIGNS OF RESPIRATORY DISTRESS NOTED. HOB RAISED. VITAL SIGNS WITH NORMAL LIMITS. BLOOD TRANSFUSION, INFUSING WELL, PATENCY NOTED. NO SIGNS OF INFILTRATION. SMITH CATHETER ATTACHED AND SECURED, DRAINING BY GRAVITY. SCD'S OPERATING WELL. CALL LIGHT WITHIN REACH, SAFETY PRECAUTIONS IN PLACE. BED LOCKED AND IN LOWEST POSITION. WILL CONTINUE TO MONITOR PATIENT.
[2019-10-11 20:00] VITALS: BP_SYST 122
--- NOTE | 2019-10-11 22:05 | NUR ---
MED PASS DUE MEDICATION GIVEN AT THIS TIME , PATIENT COOPERATE AND TOLERATED WELL. NO SIGNS OF RESPIRATORY DISTRESS AND DISCOMFORT NOTED. BREATHING EVEN AND UNLABORED. SAFETY PRECAUTIONS IN PLACE. WILL CONTINUE TO MONITOR PATIENT.
--- NOTE | 2019-10-11 22:55 | NUR ---
BLOOD TRANSFUSION 2ND UNIT PRBC 2ND UNIT OF PRBC GIVEN AT THIS TIME. VITAL SIGNS TAKEN AND RECORDED. NO SIGNS OF RESPIRATORY DISTRESS AND DISCOMFORT NOTED. SAFETY PRECAUTIONS IN PLACE. WILL CONTINUE TO MONITOR.
--- NOTE | 2019-10-11 23:30 | NUR ---
RN ROUNDS PATIENT ASLEEP AT THIS TIME. NO SIGNS OF RESPIRATORY DISTRESS AND DISCOMFORT NOTED. BREATHING EVEN AND UNLABORED. BLOOD TRANSFUSION, INFUSING WELL, PATENCY NOTED. SMITH ATTACHED AND SECURED, DRAINING BY GRAVITY. CALL LIGHT WITH IN REACH. SAFETY PRECAUTIONS IN PLACE. WILL CONTINUE TO MONITOR PATIENT
[2019-10-12 01:00] VITALS: BP_SYST 113
--- NOTE | 2019-10-12 01:30 | NUR ---
BLOOD TRANSFUSION FINISHED BLOOD TRANSFUSION DONE AT THIS TIME, PATIENT TOLERATED WELL. PATIENT HAS NO SIGNS OF RESPIRATORY DISTRESS, DENIES PAIN AND DISCOMFORT. VITAL SIGNS WITHIN NORMAL LIMITS. SAFETY PRECAUTIONS IN PLACE. WILL CONTINUE TO MONITOR
--- NOTE | 2019-10-12 01:30 | NUR ---
NOTES BLOOD TRANSFUSION DONE AT THIS TIME. PATIENT AWAKE. NO SIGNS OF RESPIRATORY DISTRESS AND DISCOMFORT NOTED. NO ADVERSE REACTION NOTED. VITAL SIGNS TAKEN AND RECORDED. SAFETY PRECAUTIONS IN PLACE. WILL CONTINUE TO MONITOR
--- NOTE | 2019-10-12 02:30 | NUR ---
RN ROUNDS PATIENT ASLEEP AT THIS TIME. NO SIGNS OF RESPIRATORY DISTRESS AND DISCOMFORT NOTED. BREATHING EVEN AND UNLABORED. IVF INFUSING WELL, PATENCY NOTED. SMITH ATTACHED AND SECURED, DRAINING BY GRAVITY. CALL LIGHT WITH IN REACH. SAFETY PRECAUTIONS IN PLACE. WILL CONTINUE TO MONITOR PATIENT
--- NOTE | 2019-10-12 04:30 | NUR ---
WOO CARE/RN ROUNDS WOO CARE DONE AT THIS TIME WITH HELP OF JOSLYN CUENCA. PATIENT COOPERATIVE. NO SIGNS OF RESPIRATORY DISTRESS NOTED. DENIES PAIN AND DISCOMFORT AT THIS TIME. REPOSITION FOR COMFORT. IVF INFUSING WELL. NEEDS ATTENDED. SAFETY PRECAUTIONS IN PLACE. WILL CONTINUE TO MONITOR.
--- NOTE | 2019-10-12 06:54 | NUR ---
CLOSING NOTES PATIENT AWAKE AND CALM AT THIS TIME. NO SIGNS OF RESPIRATORY DISTRESS NOTED. HOB RAISED. IVF INFUSING WELL, PATENCY NOTED. NO SIGNS OF INFILTRATION. SMITH CATHETER ATTACHED AND SECURED, DRAINING BY GRAVITY. SCD'S OPERATING WELL. CALL LIGHT WITHIN REACH, SAFETY PRECAUTIONS IN PLACE. BED LOCKED AND IN LOWEST POSITION. ALL NEEDS ME THROUGHOUT THE SHIFT. WILL CONTINUE TO MONITOR UNTIL PATIENT IS ENDORSE TO ONCOMING SHIFT NURSE FOR CONTINUITY OF CARE.
--- NOTE | 2019-10-12 07:53 | NUR ---
OPENING NOTE: Patient is resting in bed. patient is yelling, told patient that he can't be yelling or security will be called. Patient nodded head and stop yelling. vital signs are taken. educated patient on plan of care, patient did not give me a verbal response. He just stay quiet. patient has I.V fluid running and is tolerating well. patient is on contact precaution for MRSA. no signs of distress at this time. bed alarm on, call light within reach, side rails up, room close to station and fall and safety precaution in place.
[2019-10-12 08:00] VITALS: BP_SYST 105
[2019-10-12 08:07] LABS: BASOPHILS % (AUTO) 0.3 % (0.0-2.0); EOSINOPHILS # (AUTO) 0.1 K/uL (0.0-0.4); HEMATOCRIT 25.1 % (36-54); HEMOGLOBIN 8.3 g/dL (14.0-18.0); LYMPHOCYTES # (AUTO) 0.9 K/uL (1.0-5.5); LYMPHOCYTES % (AUTO) 8.7 % (20.5-51.5); MEAN CORPUSCULAR HEMOGLOBIN 28 pg (27-31); MEAN CORPUSCULAR HGB CONC 33 % (32-36); MEAN CORPUSCULAR VOLUME 84 fL (79.0-98.0); MONOCYTES # (AUTO) 0.7 K/uL (0.0-1.0); MONOCYTES % (AUTO) 6.8 % (1.7-9.3); NEUTROPHILS # (AUTO) 8.6 K/uL (1.8-7.7); NEUTROPHILS % (AUTO) 83.2 % (40.0-70.0); PLATELET COUNT (AUTO) 205 K/uL (130-430); RED BLOOD CELL COUNT(AUTO) 2.99 MIL/uL (4.2-6.2); RED CELL DISTRIBUTION WIDTH 18.3 % (9.0-15.0); WHITE BLOOD COUNT (AUTO) 10.3 K/uL (4.8-10.8)
[2019-10-12 08:20] LABS: ALBUMIN 2.1 g/dL (3.4-4.8); CALCIUM 7.9 mg/dL (8.4-11.0); CREATININE 0.68 mg/dL (0.55-1.30); TOTAL BILIRUBIN 0.3 mg/dL (0.0-1.0)
[2019-10-12] MEDS: QUEtiapine FUMARATE 100 MG TABLET PO SCH ×2 (09:11→20:52)
[2019-10-12] MEDS: DOCUSATE SODIUM 100 MG CAPSULE PO SCH ×2 (09:11→20:52)
[2019-10-12] MEDS: FERROUS SULFATE 325 MG TABLET.DR PO SCH (09:11)
[2019-10-12] MEDS: PANTOPRAZOLE SODIUM 40 MG TAB PO SCH ×2 (09:12→20:52)
[2019-10-12] MEDS: BALSAM PERU/CASTOR OIL 60 GM OINT...G. TP SCH (09:12)
[2019-10-12] MEDS: CITALOPRAM HYDROBROMIDE 20 MG TABLET PO SCH (09:12)
[2019-10-12] MEDS: MUPIROCIN 2% TOPICAL OINTMENT 22 GM NS SCH ×2 (09:12→20:51)
[2019-10-12] MEDS: NYSTATIN 15 GM TOPICAL POWDER TP SCH ×2 (09:12→20:52)
[2019-10-12] MEDS: BENZTROPINE MESYLATE 1 MG TABLET PO SCH ×2 (09:12→20:52)
[2019-10-12] MEDS: ENOXAPARIN SODIUM 40 MG/0.4 ML SYRINGE SUBCUT SCH (09:13)
[2019-10-12] MEDS: cefTRIAXone 1 GM in D5W 50 ML IV SCH (09:14)
[2019-10-12] MEDS ORDERED: POTASSIUM CHLORIDE 40 MEQ in NS 250 ML IV ONE (10:15)
--- NOTE | 2019-10-12 10:27 | NUR ---
Cardio consult called: for Dr. Tyree Pantoja, regarding PVCs, ordered by Dr. Glover, spoke with Samantha.
--- NOTE | 2019-10-12 10:58 | NUR ---
Edgar patient is resting in bed. educated patient on medication. patient stay quiet. tolerating well. no signs of distress at this time. fall safety, contact precaution in place.
--- NOTE | 2019-10-12 11:21 | NUR ---
DC Planning: Received call from Bill/pt's brother: stated okay for the pt transferring back to [facility]. Stated staff from the facility called him last night and resolved the issues he had complaint. The facility assigned pt to another room where is closed to nursing unit and promised to monitor pt often. In addition, he stated if he moved pt elsewhere he might lose certain benefits. [place] aware the planning to send pt back around 2-3 pm pending on ambulance picker tender time. Monica PÉREZ aware.
[2019-10-12 12:01] VITALS: BP_SYST 141
--- NOTE | 2019-10-12 12:07 | NUR ---
PHYSICAL THERAPY CO-SIGN The Physical Therapy Progress Notes documented by Hosiery Repairer have been reviewed. Reviewed/Co-Signed by: Uriel AlegriaPT Documentation Done by: JOAN LOONEY PTA Addendum: 10/12/19 at 1208 by Uriel Alegria PT Amended: Links added.
--- NOTE | 2019-10-12 12:10 | NUR ---
rounds patient is resting in bed, states he does not want to eat right now, just wants juice, no signs of distress at this time, no other needs addressed at this time, fall/safety and contact precautions in place.
--- NOTE | 2019-10-12 12:38 | NUR ---
Discharge Planning: DCP arranged transportation with [facility] ([phone]) 3:00pm P/U, [facility] (f [phone] p [phone]) 23B. Patient packet taken to nurse station. Addendum: 10/12/19 at 1643 by Mariam Jenkins DP DCP made Carolina at [facility] (f [phone] p [phone]) 23B, doctor is sending patient to LT[facility] if meets criteria. DCP cancelled transportation.
--- NOTE | 2019-10-12 12:40 | NUR ---
DC planning informed Mariam that Dr Glover wants cardiology clearance and jairo eval for patient.
--- NOTE | 2019-10-12 15:10 | NUR ---
wound care wound care done per guide lines, patient was cooperative. no signs of distress at this time. fall safety and contact precaution in place.
[2019-10-12] MEDS: D5/0.45 NS 1,000 ML IV SCH (15:45)
[2019-10-12] MEDS ORDERED: MAGNESIUM SULFATE 50 ML IV ONE (15:45)
[2019-10-12 16:00] VITALS: BP_SYST 122
--- NOTE | 2019-10-12 17:30 | NUR ---
rounds patient is resting in bed, gave him his dinner tray, no signs of distress at this time, no other needs addressed at this time, fall/safety and contact precautions in place.
--- NOTE | 2019-10-12 18:58 | NUR ---
CLOSING NOTE: Patient is resting in bed. Patient is quiet at this time. patient has I.V fluid running and is tolerating well. patient is on contact precaution for MRSA. no signs of distress at this time. bed alarm on, call light within reach, side rails up, room close to station and fall and safety precaution in place. pending discharge planing for [place] evaluation, brother is aware. Will endorse care to [facility] nurse. Patient takes medications crush with pudding.
[2019-10-12 19:00] VITALS: BP_SYST 115
--- NOTE | 2019-10-12 19:15 | NUR ---
change of shift.pt.presents isolation status;contact;mrsa nares.pt.presents fx;LT/.HIP.PT.aCTIVITY STATUS ;bedrest. pt.presents iv access intact;patent iv lock.general status stable.respiratory status stable;unlabored@room air.call light telephone w/in reach of the pt.
[2019-10-12 20:00] VITALS: BP_SYST 115
--- NOTE | 2019-10-12 20:00 | NUR ---
pt.assessed.v/s assessed;values w/in normal limits.no c/o pain,nausea.dinner tray present.pt.present propensity to consume meals slowly.no c/o pain,nausea.pt.assessed for cleanliness.pt.repositioned.iv access intact;patent iv lock.general status stable.respiratory status stable;unlabored.@room air.call light/telephone placed w/in reach of the pt.
--- NOTE | 2019-10-12 21:00 | NUR ---
2100pmedication administered.pt.capable to ingest the medications whole w/out difficulty.pt.had requested orange juice; i have provided the orange juice.no additional requests posited @this hour.
--- NOTE | 2019-10-12 22:00 | NUR ---
pt.assessed.pt.assessed for cleanliness.pt.repositioned.no c/o pain,nausea.no requests posited@this hour. general status stable.respiratory status stable;unlabored:02-sat%=96%.call light/telephone placed w/in reach of the pt.
[2019-10-13] VITALS: BP_SYST 128
--- NOTE | 2019-10-13 | NUR ---
pt.assessed.v/s assessed;values w/in normal limits.pt.assessed for cleanliness.pt.repositioned.no c/o pain,nausea. general status stable.respiratory status stable;unlabored;02-sat%=96%.call light/telephone placed w/in reach of the pt.
--- NOTE | 2019-10-13 00:30 | NUR ---
i have noted has order miralax;initial dose;10/13/19 @0015A.I HAVE ADMINISTERED THE MIRALAX.
[2019-10-13] MEDS: POLYETHYLENE GLYCOL 3350, 17 GM/ POWD.PACK PO SCH ×2 (00:36→08:42)
--- NOTE | 2019-10-13 02:00 | NUR ---
pt.assessed.pt.assessed for cleanliness.pt.repositioned.per flacc pain max pt.absent facial grimaces/body posturing. in access intact patent iv fluids infusing.general status stable.respiratory status stable;unlabored:o2-sat%=96%. call light/ telephone placed w/in reach of the pt.
--- NOTE | 2019-10-13 04:00 | NUR ---
pt.assessed.pt.assessed for cleanliness.pt.repositioned.per flacc pain mgx pt.absent facial grimaces.body posturing. iv fluids infusing.general status stable.respiratory status stable.unlabored.call light/telephone placed w/in reach of the pt.
--- NOTE | 2019-10-13 06:30 | NUR ---
pt.assessed.pt assessed for cleanliness.pt.repositioned.iv access intact patent iv have changed the iv fluids bag.giang cath intact patten urine content present.general status stable.respiratory status stable;unlabored.call light/telephone placed w/in reach of the pt.
[2019-10-13] MEDS: D5/0.45 NS 1,000 ML IV SCH (06:38)
--- NOTE | 2019-10-13 07:55 | NUR ---
OPENING NOTE: Patient is resting in bed. Patient is quiet at this time. vital signs are taken. educated patient on plan of care, patient did not give me a verbal response. He just stay quiet. patient has I.V fluid running and is tolerating well. patient is on contact precaution for MRSA. no signs of distress at this time. bed alarm on, call light within reach, side rails up, room close to station and fall and safety precaution in place. per DR. Up, keep giang for another day.
[2019-10-13 08:06] VITALS: BP_SYST 125
[2019-10-13] MEDS: QUEtiapine FUMARATE 100 MG TABLET PO SCH ×2 (08:40→22:10)
[2019-10-13] MEDS: FERROUS SULFATE 325 MG TABLET.DR PO SCH (08:41)
[2019-10-13] MEDS: cefTRIAXone 1 GM in D5W 50 ML IV SCH (08:41)
[2019-10-13] MEDS: ENOXAPARIN SODIUM 40 MG/0.4 ML SYRINGE SUBCUT SCH (08:42)
[2019-10-13] MEDS: DOCUSATE SODIUM 100 MG CAPSULE PO SCH ×2 (08:42→22:11)
[2019-10-13] MEDS: BENZTROPINE MESYLATE 1 MG TABLET PO SCH ×2 (08:42→22:10)
[2019-10-13] MEDS: CITALOPRAM HYDROBROMIDE 20 MG TABLET PO SCH (08:42)
[2019-10-13] MEDS: PANTOPRAZOLE SODIUM 40 MG TAB PO SCH ×2 (08:42→22:10)
[2019-10-13] MEDS: MUPIROCIN 2% TOPICAL OINTMENT 22 GM NS SCH ×2 (08:43→22:10)
[2019-10-13] MEDS: NYSTATIN 15 GM TOPICAL POWDER TP SCH ×2 (08:43→22:09)
[2019-10-13] MEDS: BALSAM PERU/CASTOR OIL 60 GM OINT...G. TP SCH (08:43)
--- NOTE | 2019-10-13 10:33 | NUR ---
Round Patient is resting in bed. Brother was here earlier and updated him on DC planning. No signs of distress at this time. fall safety and contact precaution in place.
[2019-10-13 10:52] VITALS: BP_SYST 125
[2019-10-13 12:17] VITALS: BP_SYST 159
--- NOTE | 2019-10-13 12:19 | NUR ---
Round Patient resting in bed and having lunch. vital signs are taken. No signs of distress noted at this time. fall precaution and contact isolation in place.
--- NOTE | 2019-10-13 14:05 | NUR ---
Nutrition F/U RD reviewed pt's current EMR record including diet Hx, physician notes, nursing notes, pertinent labs/meds/procedures, care trends, and care activity. Admission Dx: Hip fracture PMH: Acute Right Femur Fracture, Hx of: Anemia, Dementia, HTN, GERD, Schizophrenia, Depression per physician notes Current Diet Order/Nutrition Support: Pertinent Medical Info: 10/10/19 - attempted R hip arthroplasty noted per EMR Subjective Info: Pt seen resting in bed, tired, eyes heavy, and not very responsive at time of RD visit. Lunch tray seen atop bedside table, less than 25% eaten. Per EMR, PO intake records indicate 33% average x3 meals since last RD visit. Pt stated he was napping. RD encouraged pt to try to increase PO intakes to better meet optimal nutritional needs. Skin Integrity Comment: Andres scale: 16; per Fire Alarm Dispatcher note 10/10/19: 1. Left Buttock near Ischium: Prior Stage IV pressure ulcer, present on admission. 2. Right Buttock near Ischium: Prior Stage IV pressure ulcer, present on admission. 3. Gluteal Sulcus: Scar tissue, present on admission. 4. Scrotum: Erythema from IAD, present on admission. 5. Bilateral Heels: Blanchable red erythema, present on admission. Estimated Energy Expenditure (kcals/day) 3357-3976 kcal/day (30-35 kcal/kg CBW for wound healing/wt gain) Estimated Protein Required (g/day) 54-81 gm/day (1-1.5 gm/kg CBW for wound healing) Estimated Fluid Required (l/day) 1.6 L/day (30ml/kg CBW for wound healing) Problem/Etiology/Signs/Symptoms Increased nutrient needs r/t metabolic demands AEB estimated calories and protein for wound healing. *ongoing Inadequate protein-calorie intake r/t diet interruption AEB NPO status awaiting surgery. *ongoing Expected Outcomes/Goals Monitor advancement of diet and intake w/ goal of pt meeting at least 75% of estimated nutritional needs, labs trending WNL, normal GI function, skin integrity/wt maintenance. Dietitian Recommendations * Recommend mechanical soft diet w/ Ensure Enlive TID, Christian BID * Encourage increase PO intakes Follow Up High Risk: F/U in 2-3 days
--- NOTE | 2019-10-13 14:10 | NUR ---
Dietitian Recommendations * Recommend mechanical soft diet w/ Ensure Enlive TID, Christian BID * Encourage increase PO intakes LP, RD Please refer to Nutrition F/U for details.
--- NOTE | 2019-10-13 15:00 | NUR ---
wound care wound care done per guide lines, patient was cooperative. no signs of distress at this time. fall safety and contact precaution in place.
--- NOTE | 2019-10-13 16:00 | NUR ---
Cardiology consult site monitor informed us that Doctor Pantoja did see patient this morning.
[2019-10-13 16:11] VITALS: BP_SYST 133
--- NOTE | 2019-10-13 16:33 | NUR ---
rounds patient is resting in bed, no signs of distress at this time, quiet at this time, no needs addressed at this time, fall/safety and contact precautions in place.
--- NOTE | 2019-10-13 18:17 | NUR ---
Dr Garduno spoke to him about patient having penicillin allergy. ordered Invanz for patient, informed him that katie wanted me to double verify with him about the order, said it was okay to give still. Addendum: 10/13/19 at 1818 by Monica Lee RN ERROR WRONG PATIENT NOTE, IGNORE
--- NOTE | 2019-10-13 18:47 | NUR ---
CLOSING NOTE: Patient is resting in bed. Patient is quiet at this time. patient has I.V fluid running and is tolerating well. patient is on contact precaution for MRSA. bed alarm on, call light within reach, side rails up, room close to station and fall and safety precaution in place. no signs of distress at this time. pending discharge planing for [place] evaluation, brother is aware. Will endorse care to production supervisor off shift nurse. Patient takes medications crush with pudding.
--- NOTE | 2019-10-13 19:45 | NUR ---
OPENING NOTES Received report from ELISA Anderson. Patient is resting in bed, awake, alert, oriented x 1, breathing evenly and nonlabored on room air. Patient has an IV on the left AC 20g, patent and benign, no s/s of infiltration/infection noted, IVF running, patient is tolerating it well. Patient has a Arreola catheter, secured and draining by gravity. Educated patient on plan of care, fall/safety/aspiration/isolation precautions. Bed is locked, armed, and at lowest position, will continue to monitor.
[2019-10-13 20:00] VITALS: BP_SYST 120
--- NOTE | 2019-10-13 21:30 | NUR ---
ROUNDS Patient is resting in bed, eyes closed, breathing evenly and nonlabored on room air. No s/s of distress at this time, no other needs at this time. Fall/safety/aspiration/isolation precautions, will continue to monitor.
--- NOTE | 2019-10-13 22:10 | NUR ---
MEDICATIONS/ROUNDS Patient is resting in bed, awake, breathing evenly and nonlabored on room air. Educated patient on due medications, patient unable to state understanding due to cognitive limitations. Administered medications, patient tolerated it well. No s/s of distress at this time, no other needs at this time. Fall/safety/aspiration/isolation precautions, will continue to monitor.
[2019-10-14 01:02] VITALS: BP_SYST 133
--- NOTE | 2019-10-14 02:00 | NUR ---
ROUNDS Patient is resting in bed, eyes closed, breathing evenly and nonlabored on room air. No s/s of distress at this time, no other needs at this time. Fall/safety/aspiration/isolation precautions.
[2019-10-14] MEDS: D5/0.45 NS 1,000 ML IV SCH (05:19)
--- NOTE | 2019-10-14 06:20 | NUR ---
CLOSING NOTES Patient is resting in bed, eyes closed, breathing evenly and nonlabored on room air. IVF replaced earlier, patient is tolerating it well. Needs met throughout the shift. No s/s of distress at this time, no other needs at this time. Fall/safety/aspiration/isolation precautions, will endorse care to morning shift RN.
[2019-10-14 07:11] LABS: BASOPHILS % (AUTO) 0.4 % (0.0-2.0); EOSINOPHILS # (AUTO) 0.4 K/uL (0.0-0.4); EOSINOPHILS % (AUTO) 6.1 % (0.0-4.0); HEMATOCRIT 23.7 % (36-54); HEMOGLOBIN 7.7 g/dL (14.0-18.0); LYMPHOCYTES # (AUTO) 0.8 K/uL (1.0-5.5); LYMPHOCYTES % (AUTO) 13.4 % (20.5-51.5); MEAN CORPUSCULAR HEMOGLOBIN 27 pg (27-31); MEAN CORPUSCULAR HGB CONC 32 % (32-36); MEAN CORPUSCULAR VOLUME 84 fL (79.0-98.0); MONOCYTES # (AUTO) 0.6 K/uL (0.0-1.0); MONOCYTES % (AUTO) 10.1 % (1.7-9.3); NEUTROPHILS # (AUTO) 4.3 K/uL (1.8-7.7); PLATELET COUNT (AUTO) 238 K/uL (130-430); RED BLOOD CELL COUNT(AUTO) 2.83 MIL/uL (4.2-6.2); RED CELL DISTRIBUTION WIDTH 18.5 % (9.0-15.0); WHITE BLOOD COUNT (AUTO) 6.1 K/uL (4.8-10.8)
--- NOTE | 2019-10-14 07:19 | NUR ---
RN INITIAL NOTES RECEIVED PATIENT IN BED ALERT AWAKE NO DISTRESS , PATIENT RESP EVEN AND UNLABORED, PATIENT SAFETY ENSURED
[2019-10-14 07:39] LABS: CALCIUM 7.9 mg/dL (8.4-11.0); CREATININE 0.53 mg/dL (0.55-1.30); POTASSIUM 3.4 mmol/L (3.5-5.1)
[2019-10-14 08:15] VITALS: BP_SYST 130
--- NOTE | 2019-10-14 08:45 | NUR ---
LOW HGB DR DUEÑAS WAS PAGE TO NOTIFY LOW HGB LEVEL OF 7.7 ALREADY ON FESO4 DAILY, K LEVEL 3.4 AWAITING FOR MD TO CALL BACK,MEDS TOLERATED
[2019-10-14] MEDS: BENZTROPINE MESYLATE 1 MG TABLET PO SCH (08:48)
[2019-10-14] MEDS: CITALOPRAM HYDROBROMIDE 20 MG TABLET PO SCH (08:48)
[2019-10-14] MEDS: PANTOPRAZOLE SODIUM 40 MG TAB PO SCH (08:48)
[2019-10-14] MEDS: DOCUSATE SODIUM 100 MG CAPSULE PO SCH (08:48)
[2019-10-14] MEDS: POLYETHYLENE GLYCOL 3350, 17 GM/ POWD.PACK PO SCH (08:49)
[2019-10-14] MEDS: cefTRIAXone 1 GM in D5W 50 ML IV SCH (08:49)
[2019-10-14] MEDS: FERROUS SULFATE 325 MG TABLET.DR PO SCH (08:56)
[2019-10-14] MEDS: QUEtiapine FUMARATE 100 MG TABLET PO SCH (09:35)
[2019-10-14] MEDS: NYSTATIN 15 GM TOPICAL POWDER TP SCH (09:35)
[2019-10-14] MEDS: MUPIROCIN 2% TOPICAL OINTMENT 22 GM NS SCH (09:35)
[2019-10-14] MEDS: ENOXAPARIN SODIUM 40 MG/0.4 ML SYRINGE SUBCUT SCH (09:36)
--- NOTE | 2019-10-14 11:27 | NUR ---
DC Planning: LT[facility]: per Maria Teresa,the case is being review, waiting for admin approval decision. She will call back with update. Per ELISA Bowers, she will be notifying ., the pt's hgb is 7.7 today.
[2019-10-14 12:24] VITALS: BP_SYST 125
--- NOTE | 2019-10-14 13:14 | NUR ---
Supervisory It Specialist : Met with pt. to try to do a DCPA. DIRECTOR OF EARLY CHILDHOOD EDUCATION introduced self to pt. who was sitting upright in his bed, but with the blankets covering his head. DIRECTOR OF EARLY CHILDHOOD EDUCATION introduced self to pt. but pt. did not want to come out from under the blankets. DIRECTOR OF EARLY CHILDHOOD EDUCATION asked pt. how he was feeling. Pt. began to mumble some words. DIRECTOR OF EARLY CHILDHOOD EDUCATION told pt. she would let him rest and left the room. Stockbroking DealerCristela stated pt. would not be able to participate in the interview. DIRECTOR OF EARLY CHILDHOOD EDUCATION called brother Santy ,but the number listed on the facesheet was not set up to take voice messages. DIRECTOR OF EARLY CHILDHOOD EDUCATION called [facility], but Idania Ashley was at lunch break. DIRECTOR OF EARLY CHILDHOOD EDUCATION will try again later.
[2019-10-14] MEDS ORDERED: POTASSIUM CHLORIDE 20 MEQ TAB.PRT.SR PO ONE (13:15)
--- NOTE | 2019-10-14 14:15 | NUR ---
Discharge Planning: Maria Teresa james [place] received room for patient at [facility] # to report [phone] [id number], Transportation arranged with [facility] ([phone]) 7:00pm P/U. Nurse made aware patient packect taken to nurse station.
[2019-10-14] MEDS: BALSAM PERU/CASTOR OIL 60 GM OINT...G. TP SCH (16:03)
[2019-10-14 16:15] VITALS: BP_SYST 116
--- NOTE | 2019-10-14 17:00 | NUR ---
DISCHARGE PICTURE PATIENT WOUND AND RT HIP WITH 21 ANGEL ,PER CHARGE NURSE TO OPEN AND PICTURES TAKEN WITH 21 ANGEL , ABDOMINAL PAD AND TAPED SECURELY ,DRESSING DONE AND PATIENT IS VERY UNCOOPERATIVE HE THREW HIS DENTURES TO STAFF , WILL KEEP SMITH CATHETER AND HL
[2019-10-14 17:12] VITALS: BP_SYST 115
--- NOTE | 2019-10-14 19:30 | NUR ---
DISCHARGE PATIENT DC TO LT[facility] REPORT GIVEN TO RN , WITH SMITH CATH FOR RETENTION, WITH IV HL , PATIENT MEDS RECONCILEED AND WOUND DRESSING DONE , PATIENT YELLS AND VERY ANGRY AND NO DISTRESS
== END 2019-10-14 19:05 | DRG 535 ==
LOC: SED 06:00 → SMU 11:36 → STU 14:53
PROVIDERS: ADMIT Internal Medicine; ATTEND Internal Medicine
PROC: 30233N1 Transfusion of Nonautologous Red Blood Cells into Peripheral Vein, Percutaneous Approach (ICD-10-PCS; principal; 2019-10-11)
DX: S72.011A Unspecified intracapsular fracture of right femur, initial encounter for closed fracture (principal); L89.94 Pressure ulcer of unspecified site, stage 4; D62 Acute posthemorrhagic anemia; M86.9 Osteomyelitis, unspecified; E83.42 Hypomagnesemia; F03.90 Unspecified dementia, unspecified severity, without behavioral disturbance, psychotic disturbance, mood disturbance, and anxiety; F20.9 Schizophrenia, unspecified; F32.9 Major depressive disorder, single episode, unspecified; I10 Essential (primary) hypertension; I49.3 Ventricular premature depolarization; F41.9 Anxiety disorder, unspecified; K21.9 Gastro-esophageal reflux disease without esophagitis; K56.41 Fecal impaction; W18.39XA Other fall on same level, initial encounter; Z74.01 Bed confinement status; Z79.899 Other long term (current) drug therapy; Y93.89 Activity, other specified; Y92.89 Other specified places as the place of occurrence of the external cause; Y99.8 Other external cause status
CPT/HCPCS: 36415; 71045; 72170-TC; 73552; 80048; 80053; 80202-TC; 81003; 82550-TC; 83605; 83690-TC; 83735-TC; 84484; 85025; 85610-TC; 85730-TC; 86886; 86900; 86901; 86920; 87040-TC; 87081; 87086; 88305; 88311; 93005; 94760; 96361; 96374; 96375; 97110-GP; 97112-GP; 97530-GP; 99285; C1713; C9290; G0378; J0696; J1650; J2270; J2405; J2704; J3370; J3475; J3480; J3490; J7050; J7060; J7120; P9021

== ENCOUNTER 2020-03-25 23:46 | Emergency (ER) | payer OTHER, MEDICAID ==
[~2020-03-25] VITALS: Ht 165.1 cm; Wt 59.0 kg
[~2020-03-25 23:46] MED LIST changes: -HAL5 PO; -Vancomycin IVPB
[2020-03-25 23:57] VITALS: BP_SYST 128
[2020-03-26] MEDS ORDERED: ASCO500T20 PO (00:35)
[2020-03-26] MEDS ORDERED: ZINC220T4 PO (00:35)
[2020-03-26] MEDS ORDERED: POLY17PO4 PO (00:35)
[2020-03-26] MEDS ORDERED: DONE10TA44 PO (00:35)
[2020-03-26] MEDS ORDERED: ACET-2165 PO (00:35)
[2020-03-26] MEDS ORDERED: ACET325T53 PO (00:35)
[2020-03-26] MEDS ORDERED: ESCI20TA PO (00:35)
[2020-03-26] MEDS ORDERED: RISP2TAB5 PO (00:35)
[2020-03-26] MEDS ORDERED: DOCU-144 PO (00:35)
[2020-03-26] MEDS ORDERED: MEMA5TAB PO (00:35)
[2020-03-26] MEDS ORDERED: BISA10SU77 RC (00:35)
[2020-03-26 01:09] LABS: BASOPHILS % (AUTO) 0.2 % (0.0-2.0); EOSINOPHILS % (AUTO) 0.2 % (0.0-4.0); HEMATOCRIT 32.5 % (36-54); HEMOGLOBIN 10.9 g/dL (14.0-18.0); LYMPHOCYTES % (AUTO) 11.5 % (20.5-51.5); MEAN CORPUSCULAR HEMOGLOBIN 29 pg (27-31); MEAN CORPUSCULAR HGB CONC 34 % (32-36); MEAN CORPUSCULAR VOLUME 87 fL (79.0-98.0); MONOCYTES # (AUTO) 0.5 K/uL (0.0-1.0); MONOCYTES % (AUTO) 5.8 % (1.7-9.3); NEUTROPHILS # (AUTO) 6.9 K/uL (1.8-7.7); NEUTROPHILS % (AUTO) 82.3 % (40.0-70.0); PLATELET COUNT (AUTO) 277 K/uL (130-430); RED BLOOD CELL COUNT(AUTO) 3.73 MIL/uL (4.2-6.2); RED CELL DISTRIBUTION WIDTH 14.8 % (9.0-15.0); WHITE BLOOD COUNT (AUTO) 8.3 K/uL (4.8-10.8)
[2020-03-26 01:20] LABS: CALCIUM 9.4 mg/dL (8.4-11.0); CREATININE 0.82 mg/dL (0.55-1.30); POTASSIUM 4.6 mmol/L (3.5-5.1)
[2020-03-26 01:26] LABS: ALBUMIN 3.2 g/dL (3.4-4.8); TOTAL BILIRUBIN 0.2 mg/dL (0.0-1.0)
[2020-03-26 02:11] VITALS: BP_SYST 128
[2020-03-26] MEDS: ASPIRIN 81 MG TABLET(ECOTRIN) PO ONE (02:25)
== END 2020-03-26 02:11 | disposition short-term general hospital (02) ==
LOC: SED 23:46
DX: I21.19 ST elevation (STEMI) myocardial infarction involving other coronary artery of inferior wall (principal); R11.10 Vomiting, unspecified; K21.9 Gastro-esophageal reflux disease without esophagitis; F32.9 Major depressive disorder, single episode, unspecified; F20.9 Schizophrenia, unspecified; Z79.899 Other long term (current) drug therapy
CPT/HCPCS: 36415; 71045; 80053; 84484; 85025; 85610-TC; 85730-TC; 93005; 99285

== ENCOUNTER 2020-07-14 09:13 | Inpatient (IN) | payer OTHER, MEDICAID ==
[~2020-07-14] VITALS: Ht 172.7 cm; Wt 57.6 kg
[2020-07-14 09:13] VITALS: BP_SYST 129
[~2020-07-14 09:13] MED LIST changes: +ACET325T PO; +ACET325T53 PO; +BISA10SU77 RC; -CEL20 PO; +DOCU-144 PO; +DONE10TA44 PO; +ESCI20TA PO; -FAMO40TA7 PO; -FER300L PO; -FERR-69 PO; -LORA1TAB PO; +MEMA5TAB PO; -PANT20TA3 PO; -PEDI1TAB28 PO; +POLY17PO4 PO; -QUET400T PO; -QUET400T5 PO; +RISP2TAB5 PO; -[UNRECOGNIZED DRUG - CODE] PO
--- NOTE | 2020-07-14 09:13 | NUR ---
BROUGHT IN BY [facility], PLACED IN BED #6 AND TRIAGED. REPORT GIVEN TO RJ
--- NOTE | 2020-07-14 09:24 | NUR ---
Pt came to ER via BLS after x3 episodes of vomiting yesterday, pt reports no pain, no N/V today. Pt resting in [facility] at this time, VSS, awaiting MD.
--- NOTE | 2020-07-14 09:27 | NUR ---
ER at bedside examining patient.
[2020-07-14 10:17] LABS: ANION GAP 10 (5-15); CALCIUM 8.9 mg/dL (8.4-11.0); CHLORIDE 106 mmol/L (98-107); CREATININE 0.74 mg/dL (0.55-1.30); GFR AFRICAN AMERICAN 136 mL/min (>90); GLUCOSE 112 mg/dL (70-99); POTASSIUM 3.9 mmol/L (3.5-5.1); SODIUM SERUM 144 mmol/L (136-145); UREA NITROGEN, BLOOD 22 mg/dL (8-21)
[2020-07-14 10:19] LABS: PROTHROMBIN TIME 10.5 SECS (9.5-12.5)
[2020-07-14 10:27] LABS: ALANINE AMINOTRANSFERASE 16 U/L (12-78); ALBUMIN 3.6 g/dL (3.4-4.8); ASPARTATE AMINOTRANSFERASE 18 U/L (10-37); FREE T4 (FREE THYROXINE) 1.1 ng/dl (0.8-1.5); TOTAL BILIRUBIN 0.2 mg/dL (0.0-1.0)
[2020-07-14 10:28] LABS: BASOPHILS % (AUTO) 0.2 % (0.0-2.0); EOSINOPHILS % (AUTO) 0.1 % (0.0-4.0); HEMATOCRIT 39.2 % (36-54); HEMOGLOBIN 12.7 g/dL (14.0-18.0); LYMPHOCYTES # (AUTO) 2.2 K/uL (1.0-5.5); LYMPHOCYTES % (AUTO) 12.7 % (20.5-51.5); MEAN CORPUSCULAR HEMOGLOBIN 26 pg (27-31); MEAN CORPUSCULAR HGB CONC 33 % (32-36); MEAN CORPUSCULAR VOLUME 79 fL (79.0-98.0); MONOCYTES # (AUTO) 0.9 K/uL (0.0-1.0); MONOCYTES % (AUTO) 5.1 % (1.7-9.3); NEUTROPHILS # (AUTO) 14.3 K/uL (1.8-7.7); NEUTROPHILS % (AUTO) 81.9 % (40.0-70.0); PLATELET COUNT (AUTO) 301 K/uL (130-430); RED BLOOD CELL COUNT(AUTO) 4.99 MIL/uL (4.2-6.2); RED CELL DISTRIBUTION WIDTH 20.7 % (9.0-15.0); WHITE BLOOD COUNT (AUTO) 17.4 K/uL (4.8-10.8)
--- NOTE | 2020-07-14 10:29 | NUR ---
Pt returned from radiology resting in [facility] at this time. Unable to urinate, refusing catheter notified
[2020-07-14 10:30] LABS: ALCOHOL, BLOOD < 3 mg/dL (<10)
--- NOTE | 2020-07-14 11:00 | NUR ---
Pt agreed to straight cath at this time
[2020-07-14] MEDS ORDERED: cefTRIAXone 1 GM IVPB PREMIX 50 ML IV ONE (11:13)
[2020-07-14] MEDS ORDERED: cefTRIAXone 1 GM VIAL ONE (11:15)
[2020-07-14] MEDS ORDERED: cefTRIAXone 1 GM in D5W 50 ML IV ONE (11:15)
[2020-07-14 11:35] LABS: BILIRUBIN,URINE NEGATIVE (NEGATIVE); BLOOD, URINE NEGATIVE (NEGATIVE); CLARITY/URINE CLEAR (CLEAR); COLOR,URINE YELLOW (YELLOW); GLUCOSE,URINE NEGATIVE (NEGATIVE); KETONES,URINE NEGATIVE (NEGATIVE); LEUKOCYTE ESTERASE ,URINE NEGATIVE (NEGATIVE); NITRITE, URINE NEGATIVE (NEGATIVE); PROTEIN URINE NEGATIVE (NEGATIVE); UROBILINOGEN,URINE 0.2 (0.2-1.0)
[2020-07-14 11:49] LABS: BARBITURATE, URINE NEGATIVE (NEG <=200); BENZODIAZEPINE, URINE NEGATIVE (NEG <=150); CANNABINOID, URINE NEGATIVE (NEG <=50); COCAINE, URINE NEGATIVE (NEG <=150); METHAMPHETAMINES SCREEN,URINE NEGATIVE (NEG <=500); OPIATE, URINE NEGATIVE (NEG <=100); PHENCYCLIDINE SCREEN,URINE NEGATIVE (NEG <=25); UR TRICYCLIC ANTIDEPRESSANTS NEGATIVE (NEG <=300); URINE AMPHETAMINE NEGATIVE (NEG <=500); URINE METHADONE NEGATIVE (NEG <=200); URINE OXYCODONE SCREEN NEGATIVE (NEG <=100); URINE PROPOXYPHENE SCREEN NEGATIVE (NEG <=300)
[2020-07-14] MEDS ORDERED: NACL 0.9% 1,000 ML IV SCH (12:00)
--- NOTE | 2020-07-14 12:22 | NUR ---
CALLED [facility] FOR BED PLACEMENT, BED ASSIGNMENT RECEIVED. UNABLE TO TAKE PT AT THIS TIME.
--- NOTE | 2020-07-14 14:28 | NUR ---
Patient will be admitted to care of [facility]. Admitted to Tele unit. Will go to room 113B. Belongings list completed. Complete and up to date summary report printed. SBAR report to be given at bedside with opportunity for questions.
--- NOTE | 2020-07-14 14:50 | NUR ---
Admission Note Received patient from ER with diagnosis of Sepsis. Initial Plan of Care discussed-patient. Oriented to room, call light, pain management and safety. Side rails up x3, bed alarm on, room across from nursing station for safety.
[2020-07-14 14:58] VITALS: BP_SYST 121
--- NOTE | 2020-07-14 15:26 | NUR ---
CONSULTATION PAGED/CALLED Reason for Consultation: [] SEPSIS Person Who was Notified: [] OSEAS Consulting Physician: [] DR MCNEAL Slotter Operator Specialty: [] ID Ordering Physician: [] DR DUEÑAS
[2020-07-14] MEDS: D5/0.45 NS 1,000 ML IV SCH (15:30)
--- NOTE | 2020-07-14 15:39 | NUR ---
alert, but did not know where he is, did not know why in the hospital. Talked to his older brother, Santy, /or [phone]. Santy used to take care of this patient x 30 years, then gave up. Now lives at [facility] x 1 1/2 year no. Unable to walk, no vomitting since got the floor, NPO with IVF running continuously, d51/2 at 75cc/hr. ID consultation requested by attending.
--- NOTE | 2020-07-14 15:56 | NUR ---
CONSULTATION PAGED/CALLED Reason for Consultation: VOMITTING Person Who was Notified: OBDULIA Consulting Physician: STEVEN Front End Assistant Specialty: GI Ordering Physician: LEANA
[2020-07-14 16:11] VITALS: BP_SYST 121
[2020-07-14] MEDS ORDERED: MINERAL OIL 30 ML UDC PO SCH (18:30)
[2020-07-14] MEDS: POLYETHYLENE GLYCOL 3350, 17 GM/ POWD.PACK PO SCH (18:46)
--- NOTE | 2020-07-14 18:51 | NUR ---
remains NPO on arrival, now at 1800, seen by gi, dr fiore. Got fed with clear liquid diet. Miralax and Mineral oi given at this time, secondary to constipation. oncoming to continue with tap water enema tonite.
--- NOTE | 2020-07-14 19:25 | NUR ---
OPENING NOTE RECEIVED PATIENT AWAKE IN BED, ALERT, CONFUSED. NO SIGNS OF DISTRESS NOTED. RESPIRATIONS EVEN AND UNLABORED ON ROOM AIR. IV SITE PATENT AND INTACT WITH IV FLUIDS RUNNING WITH NO SIGNS OF INFILTRATION NOTED. NO COMPLAINTS OF NAUSEA. NO EPISODES OF VOMITING. SAFETY AND FALL PRECAUTIONS IN PLACE. BED LOCKED IN LOW POSITION WITH CALL LIGHT IN REACH.
--- NOTE | 2020-07-14 23:00 | NUR ---
RN ROUNDS PATIENT ASLEEP IN BED. NO SIGNS OF DISTRESS NOTED. NO VOMITING. NO BM NOTED. WILL CONTINUE TO MONITOR.
[2020-07-15 01:57] VITALS: BP_SYST 112
[2020-07-15] MEDS: D5/0.45 NS 1,000 ML IV SCH (04:38)
--- NOTE | 2020-07-15 05:00 | NUR ---
TAP WATER ENEMA ADMINISTERED TAP WATER ENEMA ORDERED. PATIENT TOLERATED 1500ML OF WATER. BROWN FLUID DRAINING, NO STOOL NOTED AT THIS TIME. PATIENT STATES "IT'S TOO MUCH, STOP" UNABLE TO TOLERATE ADDITION WATER AT THIS TIME. WILL CONTINUE TO MONITOR FOR PASSING OF STOOL. PATIENT REMAINS NPO AT THIS TIME.
--- NOTE | 2020-07-15 06:30 | NUR ---
CLOSING NOTE PATIENT AWAKE IN BED, NO SIGNS OF DISTRESS NOTED. DENIES PAIN. NO VOMITING NOTED. NO BM NOTED AT THIS TIME. IV SITE REMAINS PATENT AND INTACT WITH NO SIGNS OF INFILTRATION NOTED. PATIENT STABLE. SAFETY AND FALL PRECAUTIONS MAINTAINED. BED LOCKED IN LOW POSITION, CALL LIGHT IN REACH. PATIENT REMAINS NPO AT THIS TIME UNTIL PASSAGE OF STOOL THEN ADVANCE TO CLEAR LIQUID DIET. WILL CONTINUE TO MONITOR UNTIL ENDORSED TO AM NURSE.
[2020-07-15 07:42] LABS: BASOPHILS % (AUTO) 0.5 % (0.0-2.0); EOSINOPHILS # (AUTO) 0.2 K/uL (0.0-0.4); EOSINOPHILS % (AUTO) 2.8 % (0.0-4.0); HEMATOCRIT 32.1 % (36-54); HEMOGLOBIN 10.7 g/dL (14.0-18.0); LYMPHOCYTES # (AUTO) 2.7 K/uL (1.0-5.5); MEAN CORPUSCULAR HEMOGLOBIN 26 pg (27-31); MEAN CORPUSCULAR HGB CONC 33 % (32-36); MEAN CORPUSCULAR VOLUME 79 fL (79.0-98.0); MONOCYTES # (AUTO) 0.5 K/uL (0.0-1.0); MONOCYTES % (AUTO) 5.9 % (1.7-9.3); NEUTROPHILS % (AUTO) 58.8 % (40.0-70.0); PLATELET COUNT (AUTO) 222 K/uL (130-430); RED BLOOD CELL COUNT(AUTO) 4.04 MIL/uL (4.2-6.2); RED CELL DISTRIBUTION WIDTH 21.5 % (9.0-15.0); WHITE BLOOD COUNT (AUTO) 8.5 K/uL (4.8-10.8)
[2020-07-15 07:52] LABS: CALCIUM 8.5 mg/dL (8.4-11.0); CREATININE 0.58 mg/dL (0.55-1.30); POTASSIUM 3.7 mmol/L (3.5-5.1)
[2020-07-15 08:00] VITALS: BP_SYST 118
[2020-07-15] MEDS ORDERED: MINERAL OIL 30 ML UDC PO ONE (09:00)
[2020-07-15] MEDS: cefTRIAXone 1 GM IVPB PREMIX 50 ML IV SCH (09:02)
[2020-07-15] MEDS: POLYETHYLENE GLYCOL 3350, 17 GM/ POWD.PACK PO SCH (09:02)
--- NOTE | 2020-07-15 09:33 | NUR ---
very alert, only complaint " hungry". Huge bm, after the tap water enema given per night court magistrate report, clear liquid resumed per GI, on round this morning.
[2020-07-15] MEDS ORDERED: GOLYTELY / COLYTE SOLUTION 4 LITERS PO ONE (10:00)
[2020-07-15 12:05] VITALS: BP_SYST 149
[2020-07-15] MEDS ORDERED: HALOPERIDOL LACTATE 5 MG/ML VIAL IVP ONE (15:30)
[2020-07-15] MEDS ORDERED: BISACODYL 10 MG/SUPPOSITORY RC PRN (15:30)
--- NOTE | 2020-07-15 15:31 | NUR ---
CONSULTATION PAGED/CALLED Reason for Consultation: [] PSYCHOSIS Person Who was Notified: [] DR PRAJAPATI Consulting Physician: [] DR PRAJAPATI CORPORATE ADMINISTRATIVE ASSISTANT FOR DR PAEZ ON THURSDAY Cupola Repairer Specialty: [] PSYCH Ordering Physician: [] PAT HERNANDEZ
[2020-07-15 15:34] VITALS: BP_SYST 111
--- NOTE | 2020-07-15 15:44 | NUR ---
subdued all day long, tolerates clear liquid well, asking for " real food". 1400. one episode of loud voice, " i am afraid of hospital, you want to kill me" 1500 again, screaming, and tried to kick people around him, " shut up, you want to kill me again" Called the facility where he is coming from, [facility], patient is on ZYPREXA 7.5mg po, q HS and LEXAPRO 20mg po daily. The attending's ALUMINUM BOATS ASSEMBLER on round, did ask her to resume those meds for this patient.
[2020-07-15] MEDS ORDERED: CITALOPRAM HYDROBROMIDE 20 MG TABLET PO ONE (15:45)
--- NOTE | 2020-07-15 17:38 | NUR ---
subdued after HALDOL 1mg ivp administration. asking for food this time " hungry, very hungry
[2020-07-15 20:00] VITALS: BP_SYST 115
[2020-07-15] MEDS: PANTOPRAZOLE SODIUM 40 MG TAB PO SCH (20:40)
[2020-07-15] MEDS: DOCUSATE SODIUM 100 MG CAPSULE PO SCH (20:40)
[2020-07-15] MEDS: risperiDONE 1 MG TABLET (RisperDAL) PO SCH (20:40)
[2020-07-15] MEDS: ASCORBIC ACID 500 MG TABLET PO SCH (20:40)
[2020-07-15] MEDS: DONEPEZIL HCL 5 MG TABLET (ARICEPT) PO SCH (20:40)
[2020-07-15] MEDS: MEMANTINE HCL 5 MG TABLET PO SCH (20:41)
[2020-07-15] MEDS: BENZTROPINE MESYLATE 1 MG TABLET PO SCH (20:41)
--- NOTE | 2020-07-15 21:15 | NUR ---
MEDICATION PASS PATIENT TOLERATED ALL MEDICATION ORDERED.
--- NOTE | 2020-07-15 23:00 | NUR ---
COMBATIVE BEHAVIOR PATIENT YELLING, KICKING, THROWING THINGS, SPITTING AT THOSE AROUND HIM.
[2020-07-16] VITALS: BP_SYST 110
--- NOTE | 2020-07-16 01:00 | NUR ---
VOMITING PATIENT VOMITED X1, GOWN AND LINEN CHANGED. PATIENT COOPERATIVE AT THIS TIME.
[2020-07-16 06:57] LABS: BASOPHILS % (AUTO) 0.5 % (0.0-2.0); EOSINOPHILS # (AUTO) 0.1 K/uL (0.0-0.4); EOSINOPHILS % (AUTO) 0.8 % (0.0-4.0); HEMATOCRIT 31.3 % (36-54); HEMOGLOBIN 10.5 g/dL (14.0-18.0); LYMPHOCYTES # (AUTO) 1.7 K/uL (1.0-5.5); LYMPHOCYTES % (AUTO) 19.5 % (20.5-51.5); MEAN CORPUSCULAR HEMOGLOBIN 26 pg (27-31); MEAN CORPUSCULAR HGB CONC 33 % (32-36); MEAN CORPUSCULAR VOLUME 79 fL (79.0-98.0); MONOCYTES # (AUTO) 0.4 K/uL (0.0-1.0); MONOCYTES % (AUTO) 5.1 % (1.7-9.3); NEUTROPHILS # (AUTO) 6.3 K/uL (1.8-7.7); NEUTROPHILS % (AUTO) 74.1 % (40.0-70.0); PLATELET COUNT (AUTO) 216 K/uL (130-430); RED BLOOD CELL COUNT(AUTO) 3.98 MIL/uL (4.2-6.2); RED CELL DISTRIBUTION WIDTH 20.2 % (9.0-15.0); WHITE BLOOD COUNT (AUTO) 8.5 K/uL (4.8-10.8)
[2020-07-16 07:17] LABS: CALCIUM 8.2 mg/dL (8.4-11.0); CREATININE 0.54 mg/dL (0.55-1.30); POTASSIUM 3.7 mmol/L (3.5-5.1)
--- NOTE | 2020-07-16 07:17 | NUR ---
Nutrition Update Andres Scale 14 noted. Pt admitted for Leukocytosis, Sepsis Diet: Clear liquid BMI: 19.4 kg/m2 RD to follow per nutrition care standards.
--- NOTE | 2020-07-16 07:18 | NUR ---
Nutrition Update Andres Scale 14 noted. Pt admitted for Leukocytosis, Sepsis Diet: Clear liquid BMI: 19.4 kg/m2 RD to follow per nutrition care standards.
[2020-07-16 07:52] VITALS: BP_SYST 131
--- NOTE | 2020-07-16 08:00 | NUR ---
Note Pt refuses to eat any breakfast even with assist. No SOB/resp distress or pain/discomfort noted at this time. IV in left hand intact and patent infusing IVF's well. No needs noted at this time. Call light within reach.
[2020-07-16] MEDS: DOCUSATE SODIUM 100 MG CAPSULE PO SCH ×2 (08:42→22:24)
[2020-07-16] MEDS: PANTOPRAZOLE SODIUM 40 MG TAB PO SCH ×2 (08:42→22:23)
[2020-07-16] MEDS: MEMANTINE HCL 5 MG TABLET PO SCH ×2 (08:43→22:23)
[2020-07-16] MEDS: risperiDONE 1 MG TABLET (RisperDAL) PO SCH ×2 (08:43→22:23)
[2020-07-16] MEDS: cefTRIAXone 1 GM IVPB PREMIX 50 ML IV SCH (08:43)
[2020-07-16] MEDS: CITALOPRAM HYDROBROMIDE 20 MG TABLET PO SCH (08:43)
[2020-07-16] MEDS: BENZTROPINE MESYLATE 1 MG TABLET PO SCH ×2 (08:43→22:23)
[2020-07-16] MEDS: ASCORBIC ACID 500 MG TABLET PO SCH ×2 (08:43→22:23)
[2020-07-16] MEDS: POLYETHYLENE GLYCOL 3350, 17 GM/ POWD.PACK PO SCH (08:44)
[2020-07-16] MEDS: MINERAL OIL 30 ML UDC PO SCH (08:44)
--- NOTE | 2020-07-16 10:00 | NUR ---
Note Pt took all her PO medications with water. Pt put the sheet over his head and went back to sleep. Pt next to nurses' station all shift for close observation for needs and care. Pt's brother called for update on pt's status. No needs noted at this time. Call light within reach.
[2020-07-16 11:58] VITALS: BP_SYST 105
--- NOTE | 2020-07-16 12:20 | NUR ---
Note Pt assisted in sitting up in bed to eat his lunch.
[2020-07-16] MEDS: D5/0.45 NS 1,000 ML IV SCH ×3 (13:37→22:26)
--- NOTE | 2020-07-16 13:37 | NUR ---
Dietitian Recommendations *Continue clear liquid diet as ordered. ONS Ensure Clear TID comes standard w/ diet. *Recommend: advance diet when medically appropriate. Please see Nutritional Assessment for details. HANNAH, SALINAS
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
[2020-07-16 16:21] VITALS: BP_SYST 109
--- NOTE | 2020-07-16 18:45 | NUR ---
Note Pt has been sleeping on and off throughout the shift. Pt now sitting up in bed with dinner tray in front of him to eat. No SOB/resp distress or pain/discomfort noted at this time. Pt was maintained with safety and isolation precautions all shift. (MRSA positive) IV in left hand intact and patent at this time. Pt denies any needs at this time. Pt next to nurses' station all shift for close observation for needs and care. Pt was checked on q1' and PRN for needs and care. Call light within reach.
--- NOTE | 2020-07-16 19:30 | NUR ---
Opening note Received patient presently quiet, resting in bed w/ eyes closed. No distress, non labored breathing. IV is presently SL, it is infiltrated will need to start new IV. Bed is locked in lowest position, side rails up 3x and bed alarm on.
[2020-07-16 20:00] VITALS: BP_SYST 130
--- NOTE | 2020-07-16 20:30 | NUR ---
Restless, awake, yelling Patient is awake, yelling and removed gown, and threw bed linen and pillows on floor. Redirected patient and he was partially redirected, he was informed he is getting a new IV and need to keep linen on bed. He voided and linen soiled; nurse real estate assistant provided joyce-care and clean linen.
--- NOTE | 2020-07-16 20:50 | NUR ---
IV start new IV started on Rt wrist, #20G, use of aseptic technique, tolerated. secured w/ kirlex. Resumed IVF.
--- NOTE | 2020-07-16 21:06 | NUR ---
Dr Cresencio Dupont at bedside to see patient; new medication orders entered
[2020-07-16] MEDS: DONEPEZIL HCL 5 MG TABLET (ARICEPT) PO SCH (22:23)
[2020-07-16] MEDS: MUPIROCIN 2% TOPICAL OINTMENT 22 GM NS SCH (22:25)
--- NOTE | 2020-07-16 22:25 | NUR ---
Meds Patient is presently calm, IVF infusing well. His head was covered with blanket. He was responsive to voice and removed covers. He was informed he is getting his medication and was asked if wants tablets crushed and he agreed. He is on clear liquid diet and tablets were mixed in small medicine cup with jello. He finished all the jello and took a sip of water. Bactroban administered; educated on indication and side effects; He listened and nodded his head in agreement though he did not have questions. He was calm and tolerated procedure. Safety, isolation, and aspiration precautions maintained.
[2020-07-17 00:04] VITALS: BP_SYST 105
--- NOTE | 2020-07-17 00:10 | NUR ---
rounds VSS, and patient is calm, no distress. Safety, isolation, and aspiration precautions maintained.
--- NOTE | 2020-07-17 02:40 | NUR ---
Sleeping Patient is sleeping, no distress, non labored breathing. IVF infusing well, no sign of infiltration.
--- NOTE | 2020-07-17 04:30 | NUR ---
rounds, sleeping Patient is sleeping, no distress and non labored breathing noted. Safety, isolation, and aspiration precautions maintained.
[2020-07-17] MEDS: LORazepam 2 MG/ML VIAL IVP PRN ×2 (06:38→22:28)
--- NOTE | 2020-07-17 06:40 | NUR ---
Ativan, agitated Patient is awake, restless, and yelling (cursing). Threw bed linen on floor. Ativan was administered. He was provided with joyce-care and clean pad/linen
--- NOTE | 2020-07-17 07:38 | NUR ---
closing note endorsed report, patient is quiet and calm. Needs met throughout shift. Safety, isolation and aspiration precautions maintained.
--- NOTE | 2020-07-17 08:00 | NUR ---
RECEIVED PATIENT. WHEN FIRST WALKED IN PATIENT HAD BLANKET OVER HEAD. PATIENT TRIES TO COMMUNICATE BUT WORDS ARE VERY GARBLED. PATIENT TRIES TO ANSWER QUESTIONS. A0X1-2. PATIENT TOOK MORNING MEDS, PATIENT IS COOPERATIVE. MEDS WERE CRUSHED. VITALS ARE STABLE. CHEST RISING SYMMETRICALLY. NO N/V. 0/10 PAIN. ALL NEEDS MET AT THIS TIME.
[2020-07-17 10:01] VITALS: BP_SYST 107
[2020-07-17] MEDS: cefTRIAXone 1 GM IVPB PREMIX 50 ML IV SCH (10:08)
[2020-07-17] MEDS: PANTOPRAZOLE SODIUM 40 MG TAB PO SCH ×2 (10:09→21:28)
[2020-07-17] MEDS: POLYETHYLENE GLYCOL 3350, 17 GM/ POWD.PACK PO SCH (10:09)
[2020-07-17] MEDS: DOCUSATE SODIUM 100 MG CAPSULE PO SCH ×2 (10:10→21:27)
[2020-07-17] MEDS: MINERAL OIL 30 ML UDC PO SCH (10:10)
[2020-07-17] MEDS: BENZTROPINE MESYLATE 1 MG TABLET PO SCH ×2 (10:10→21:27)
[2020-07-17] MEDS: MUPIROCIN 2% TOPICAL OINTMENT 22 GM NS SCH ×2 (10:10→21:29)
[2020-07-17] MEDS: ASCORBIC ACID 500 MG TABLET PO SCH ×2 (10:10→21:38)
[2020-07-17] MEDS: MEMANTINE HCL 5 MG TABLET PO SCH ×2 (10:10→21:27)
[2020-07-17] MEDS: risperiDONE 1 MG TABLET (RisperDAL) PO SCH ×2 (10:10→21:27)
[2020-07-17] MEDS: CITALOPRAM HYDROBROMIDE 20 MG TABLET PO SCH (10:10)
[2020-07-17] MEDS: D5/0.45 NS 1,000 ML IV SCH ×2 (11:28→22:28)
--- NOTE | 2020-07-17 12:00 | NUR ---
PATIENTS DIET WAS ADVANCED TO MECHANICAL SOFT. VITALS ARE STABLE. 0/10 PAIN. NO DISCOMFORT AT THIS TIME. RECEIVED DC ORDER FOR PATIENT TO BE TRANSFERRED BACK TO [facility].
[2020-07-17 12:09] VITALS: BP_SYST 105
--- NOTE | 2020-07-17 15:30 | NUR ---
PATIENT IS STABLE. NO PAIN/DISCOMFORT AT THIS TIME. WAITING FOR ROOM IN [facility] FOR PATIENT TO BE TRANSFERRED.
[2020-07-17 16:15] VITALS: BP_SYST 107
--- NOTE | 2020-07-17 19:35 | NUR ---
Opening note Received patient awake, resting in bed, linen on floor, IVF infusing via IV to right wrist. Presently he is calm. No distress, non labored breathing. Bed is locked in lowest position, side rails up 3x and bed alarm on.
--- NOTE | 2020-07-17 19:36 | NUR ---
CALLED [facility] I REGARD OF THIS PATIENT MR. ASHA GUZMÁN I SPOKE WITH HÉCTOR RN CANCER PROGRAM COORDINATOR HE SAID THERE IS NO BED AVAILABLE FOR TONIGHT HE SAID PROBABLY TOMORROW PNEUMATIC TESTER IS WORKING ON
[2020-07-17 20:00] VITALS: BP_SYST 118
[2020-07-17] MEDS: DONEPEZIL HCL 5 MG TABLET (ARICEPT) PO SCH (21:27)
--- NOTE | 2020-07-17 21:30 | NUR ---
Meds Due meds given crushed and mixed w/ applesauce. He took all meds. He was loud and incoherent, for example he would insist that I'm a gyroscope technician, He is not able to redirect. I explained that he is in hospital and he gets upset, and replies he does not believe me. Yet, he was cooperative , took all meds and allowed application of Bactroban to nares.
--- NOTE | 2020-07-17 22:38 | NUR ---
Ativan Patient was loud and yelling, and was not able to redirect. He got more agitated if we spoke to him. Administered ativan as ordered. Patient provided with partial bed bath, joyce-care and clean linen. Safety and isolation precautions maintained.
--- NOTE | 2020-07-18 | NUR ---
rounds VSS, no distress, calm and cooperates.
[2020-07-18 01:15] VITALS: BP_SYST 124
--- NOTE | 2020-07-18 02:15 | NUR ---
sleeping Patient is sleeping, no distress, IVF infusing well.
--- NOTE | 2020-07-18 04:30 | NUR ---
sleeping Patient is sleeping, he sleeps with cover on his head. No distress, IVF infusing well, will continue to monitor.
--- NOTE | 2020-07-18 06:45 | NUR ---
CLOSING NOTE Patient resting, eyes closed, no distress. IVF infusing well. Safety and isolation precautions in place. Needs met throughout shift, will endorse care.
[2020-07-18 08:00] VITALS: BP_SYST 123
[2020-07-18] MEDS: PANTOPRAZOLE SODIUM 40 MG TAB PO SCH (09:40)
[2020-07-18] MEDS: POLYETHYLENE GLYCOL 3350, 17 GM/ POWD.PACK PO SCH (09:40)
[2020-07-18] MEDS: DOCUSATE SODIUM 100 MG CAPSULE PO SCH (09:40)
[2020-07-18] MEDS: cefTRIAXone 1 GM IVPB PREMIX 50 ML IV SCH (09:40)
[2020-07-18] MEDS: MINERAL OIL 30 ML UDC PO SCH (09:40)
[2020-07-18] MEDS: CITALOPRAM HYDROBROMIDE 20 MG TABLET PO SCH (09:41)
[2020-07-18] MEDS: MEMANTINE HCL 5 MG TABLET PO SCH (09:41)
[2020-07-18] MEDS: BENZTROPINE MESYLATE 1 MG TABLET PO SCH (09:41)
[2020-07-18] MEDS: risperiDONE 1 MG TABLET (RisperDAL) PO SCH (09:41)
[2020-07-18] MEDS: ASCORBIC ACID 500 MG TABLET PO SCH (09:41)
[2020-07-18] MEDS: MUPIROCIN 2% TOPICAL OINTMENT 22 GM NS SCH (09:42)
[2020-07-18 12:19] VITALS: BP_SYST 123
--- NOTE | 2020-07-18 12:39 | NUR ---
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 DCP took patient packet to nurse station.
[2020-07-18] MEDS: D5/0.45 NS 1,000 ML IV SCH (12:50)
--- NOTE | 2020-07-18 15:22 | NUR ---
Was on hold for 7 minutes. Called SBAR report given to Mandi Matson RN at [facility] for continuity of care. Pt to go to Room 24A. Ambulance is scheduled to spanish moss picker pt at 1600. Awaiting arrival.
[2020-07-18 16:00] VITALS: BP_SYST 125
--- NOTE | 2020-07-18 16:03 | NUR ---
[facility] here to bean picker pt (Unit# [id number]). SBAR report given to Aldair Barone, EMT.
[2020-07-18 16:26] VITALS: BP_SYST 125
--- NOTE | 2020-07-18 16:36 | NUR ---
PIV removed. Discharge instructions given to [facility] EMT's for continuity of care during transport. Pt unable to sign for himself. Pt safely discharged with [facility]. Upon Third phone call attempt, reached pt's brother, Santy Macias, and notified him of pt's discharge back to [facility]. Santy verbalized understanding.
== END 2020-07-18 16:36 | DRG 871 ==
LOC: SED 09:13 → STU 11:51 → SMU 07-15 15:38
PROVIDERS: ADMIT Internal Medicine; ATTEND Internal Medicine
DX: A41.9 Sepsis, unspecified organism (principal); J69.0 Pneumonitis due to inhalation of food and vomit; Z68.1 Body mass index [BMI] 19.9 or less, adult; K56.41 Fecal impaction; D72.829 Elevated white blood cell count, unspecified; F03.90 Unspecified dementia, unspecified severity, without behavioral disturbance, psychotic disturbance, mood disturbance, and anxiety; F20.9 Schizophrenia, unspecified; Z20.828 Contact with and (suspected) exposure to other viral communicable diseases; K21.9 Gastro-esophageal reflux disease without esophagitis; D64.9 Anemia, unspecified; F32.9 Major depressive disorder, single episode, unspecified; R62.7 Adult failure to thrive; Z79.899 Other long term (current) drug therapy; Z81.8 Family history of other mental and behavioral disorders
CPT/HCPCS: 36415; 71045; 76376; 80048; 80053; 80061; 80307; 81003; 82140-TC; 83605; 83880; 84439; 84484; 85025; 85610-TC; 87040-TC; 87081; 87086; 93005; 96361; 96365; 99285; G0378; G0482; J0696; J1630; J2060